=== PATIENT | male | born 1960 | race African-American/Black ===

== ENCOUNTER 2016-10-11 23:21 | Emergency (ER) | payer BC ==
[2016-10-11 23:40] VITALS: BP 151/77
[2016-10-12] MEDS ORDERED: NYSTATIN CREAM 15 GM TP ONE (00:12)
[2016-10-12] MEDS ORDERED: FLUCONAZOLE 100 MG TABLET PO ONE (00:15)
--- NOTE | 2016-10-12 00:21 | ER Document Report ---
ED General - General Chief Complaint: Pain With Urination Stated Complaint: PAINFUL URINATION Mode of Arrival: Ambulatory Information source: Patient TRAVEL OUTSIDE OF THE [place] IN LAST 30 DAYS: No - HPI Notes: Patient is a pleasant 56-year-old black male diabetic presents emergent department report that his sugars been running slightly elevated recently and he presents with report of dysuria and pain and redness and swelling along the glans of the penis and some difficulty manipulating his foreskin. Patient denies any testicular pain. He reports no new sexual exposures. He denies any back pain or abdominal pain or incomplete voiding for fever or chills. No nausea or vomiting. - Related Data Allergies/Adverse Reactions: No Known Allergies Allergy (Verified 07/15/13 19:03) Past Medical History - General Information source: Patient - Social History Smoking Status: Never Smoker Frequency of alcohol use: None Drug Abuse: None Lives with: Family Family History: Reviewed & Not Pertinent Patient has suicidal ideation: No Patient has homicidal ideation: No - Past Medical History Cardiac Medical History: Reports: Hx Hypercholesterolemia Endocrine Medical History: Reports: Hx Diabetes Mellitus Type 1, Hx Diabetes Mellitus Type 2 Renal/ Medical History: Denies: Hx Peritoneal Dialysis - Immunizations Hx Diphtheria, Pertussis, Tetanus Vaccination: No Review of Systems - Review of Systems Notes: REVIEW OF SYSTEMS: CONSTITUTIONAL : Denies fever, chills, or sweats. Denies recent illness. EENT: Denies eye, ear, throat, or mouth pain or symptoms. Denies nasal or sinus congestion or discharge. Denies throat, tongue, or mouth swelling or difficulty swallowing. CARDIOVASCULAR: Denies chest pain. Denies palpitations or racing or irregular heart beat. Denies ankle edema. RESPIRATORY: Denies cough, cold, or chest congestion. Denies shortness of breath, difficulty breathing, or wheezing. GASTROINTESTINAL: Denies abdominal pain or distention. Denies nausea, vomiting , or diarrhea. Denies blood in vomitus, stools, or per rectum. Denies black, tarry stools. Denies constipation. GENITOURINARY: Denies blood in urine, or discharge. Reports some dysuria and frequency. No incomplete voiding. MUSCULOSKELETAL: Denies back or neck pain or stiffness. Denies joint pain or swelling. SKIN: Denies rash, lesions or sores. HEMATOLOGIC : Denies easy bruising or bleeding. LYMPHATIC: Denies swollen, enlarged glands. NEUROLOGICAL: Denies confusion or altered mental status. Denies passing out or loss of consciousness. Denies dizziness or lightheadedness. Denies headache. Denies weakness or paralysis or loss of use of either side. Denies problems with gait or speech. Denies sensory loss, numbness, or tingling. Denies seizures. PSYCHIATRIC: Denies anxiety or stress. Denies depression, suicidal ideation, or homicidal ideation. ALL OTHER SYSTEMS REVIEWED AND NEGATIVE. Dictation was performed using [employer] voice recognition software Physical Exam - Vital signs Vitals: Temp Pulse Resp BP Pulse Ox 98.1 F 66 16 151/77 H 100 10/11/16 23:36 10/11/16 23:36 10/11/16 23:36 10/11/16 23:36 10/11/16 23:36 - Notes Notes: PHYSICAL EXAMINATION: GENERAL: Well-appearing, well-nourished and in no acute distress. HEAD: Atraumatic, normocephalic. EYES: Pupils equal round and reactive to light, extraocular movements intact, sclera anicteric, conjunctiva are normal. ENT: Nares patent, oropharynx clear without exudates. Moist mucous membranes. NECK: Normal range of motion, supple without lymphadenopathy LUNGS: Breath sounds clear to auscultation bilaterally and equal. No wheezes rales or rhonchi. HEART: Regular rate and rhythm without murmurs ABDOMEN: Soft, nontender, nondistended abdomen. No guarding, no rebound. No masses appreciated. Musculoskeletal: Normal range of motion, no pitting or edema. No cyanosis. NEUROLOGICAL: Cranial nerves grossly intact. Normal speech, normal gait. Normal sensory, motor exams PSYCH: Normal mood, normal affect. SKIN: Warm, Dry, normal turgor, no rashes or lesions noted. Genitourinary exam patient has erythema to the glans with some erythema to the distal foreskin. He is uncircumcised. There is some areas of splitting along the foreskin along a atrophied area with evidence of phimosis. The foreskin can be retracted with minimal whitish discharge in the foreskin can be replaced and location with some pain. No testicular pain. No obvious hernia. No evidence for Sandi's. Course - Re-evaluation Re-evalutation: 10/12/16 00:24 Patient was given Diflucan and was given nystatin cream. 10/12/16 02:52 Patient was given Cipro by mouth and a urine culture was taken. We will double the patient's Glucophage, as he does not have good sugar control. 10/12/16 02:53 - Vital Signs Vital signs: Temp Pulse Resp BP Pulse Ox 98.1 F 66 16 151/77 H 100 10/11/16 23:36 10/11/16 23:36 10/11/16 23:36 10/11/16 23:36 10/11/16 23:36 - Laboratory Laboratory results interpreted by me: 10/12/16 10/12/16 00:22 00:30 POC Glucose 262 H Urine Glucose (UA) >=500 H Urine Blood SMALL H Ur Leukocyte Esterase LARGE H Discharge - Discharge Clinical Impression: Phimosis, Tinea cruris Urinary tract infection Qualifiers: Urinary tract infection type: acute cystitis Hematuria presence: without hematuria Qualified Code(s): N30.00 - Acute cystitis without hematuria Condition: Stable Disposition: HOME, SELF-CARE Instructions: Urinary Tract Infection ([facility]) Additional Instructions: Place the antifungal cream upon the penis 3 times a day. Clean around the foreskin regularly. You need to follow-up with a urologist to inquire about a possible circumcision. Watch her blood sugars closely. Increase her Glucophage from once a day to twice per day. Prescriptions: Butenafine HCl [Lotrimin Ultra 1% Cream] 1 applic TP TID #1 tube Fluconazole [Diflucan 100 Mg Tablet] 100 mg PO DAILY #10 tablet Sulfamethoxazole/Trimethoprim [Bactrim Ds Tablet] 1 each PO BID #14 tablet Forms: Return to Work Referrals: SINA PETE MD [Primary Care Provider] - Follow up as needed MARY MCKEON MD [NO LOCAL MD] - Follow up as needed
[2016-10-12 00:43] LABS: APPEARANCE,URINE SLIGHTLY-CLOUDY; BILIRUBIN,URINE NEGATIVE (NEGATIVE); GLUCOSE, URINE >=500 mg/dL (NEGATIVE); KETONES,URINE NEGATIVE (NEGATIVE); LEUKOCYTE ESTERASE,URINE LARGE (NEGATIVE); NITRITE,URINE NEGATIVE (NEGATIVE); PROTEIN,URINE NEGATIVE (NEGATIVE); URINE SPECIFIC GRAVITY 1.028; UROBILINOGEN,URINE NEGATIVE mg/dL (<2.0)
[2016-10-12] MEDS ORDERED: CIPROFLOXACIN HCL 500 MG TABLET PO ONE (02:47)
[2016-10-12] MEDS ORDERED: SULFAMETHOXAZOLE/TRIMETHOPRIM 800-160 MG TABLET PO ONE (02:57)
== END 2016-10-12 03:20 | disposition home or self-care (01) ==
LOC: ER 23:21
DX: N30.00 Acute cystitis without hematuria (principal); N47.1 Phimosis; B35.6 Tinea cruris; E11.65 Type 2 diabetes mellitus with hyperglycemia; Z79.84 Long term (current) use of oral hypoglycemic drugs
CPT/HCPCS: 99283; 87086; 82962; 81001; J3490

== ENCOUNTER 2016-11-07 14:46 | Emergency (ER) | payer BC ==
[2016-11-07 14:53] VITALS: BP 111/65
[2016-11-07] MEDS ORDERED: NORMAL SALINE 1000 ML 1,000 ML IV ONE (17:41)
--- NOTE | 2016-11-07 17:43 | ER Document Report ---
ED Blood Sugar Problem - General Chief Complaint: High Blood Sugar Stated Complaint: HIGH BLOOD SUGAR Time Seen by Provider: 11/07/16 17:32 Mode of Arrival: Ambulatory Information source: Patient Notes: This is a 56-year-old male with a history of diabetes who is on metformin who presents for high blood sugar. He states that he has been compliant with his medications. For the past few days he states that his blood sugar has been above 300. At home today it was 450. He states he feels generally weak but denies any pain. No fevers or chills. No abdominal pain. No nausea or vomiting. No dysuria. No cough or congestion. No chest pain. Patient states he does have an appointment with his primary care physician Dr. Wilson tomorrow at 0900. TRAVEL OUTSIDE OF THE [place] IN LAST 30 DAYS: No - Related Data Allergies/Adverse Reactions: No Known Allergies Allergy (Verified 07/15/13 19:03) Past Medical History - General Information source: Patient - Social History Smoking Status: Unknown if Ever Smoked Family History: Reviewed & Not Pertinent Patient has suicidal ideation: No Patient has homicidal ideation: No - Past Medical History Cardiac Medical History: Reports: Hx Hypercholesterolemia Endocrine Medical History: Reports: Hx Diabetes Mellitus Type 1, Hx Diabetes Mellitus Type 2 Renal/ Medical History: Denies: Hx Peritoneal Dialysis - Immunizations Hx Diphtheria, Pertussis, Tetanus Vaccination: No Review of Systems - Review of Systems Constitutional: denies: Chills, Fever EENT: No symptoms reported Cardiovascular: No symptoms reported. denies: Chest pain Respiratory: No symptoms reported. denies: Cough, Short of breath Gastrointestinal: No symptoms reported Genitourinary: No symptoms reported Musculoskeletal: No symptoms reported Skin: No symptoms reported Hematologic/Lymphatic: No symptoms reported Neurological/Psychological: No symptoms reported Physical Exam - Vital signs Vitals: Temp Pulse Resp BP Pulse Ox 98.2 F 104 H 22 H 111/65 98 11/07/16 14:49 11/07/16 14:49 11/07/16 14:49 11/07/16 14:49 11/07/16 14:49 - General General appearance: Appears well, Alert In distress: None Notes: Pleasant and conversant and in no acute distress - HEENT Head: Normocephalic, Atraumatic Mucous membranes: Moist - Respiratory Respiratory status: No respiratory distress Breath sounds: Normal. No: Rales, Rhonchi, Wheezing - Cardiovascular Rhythm: Regular Heart sounds: Normal auscultation, S1 appreciated, S2 appreciated Murmur: No - Abdominal Inspection: Normal Distension: No distension Bowel sounds: Normal Tenderness: Nontender - Extremities General upper extremity: Normal inspection General lower extremity: Normal inspection - Neurological Neuro grossly intact: Yes Cognition: Normal Orientation: AAOx4 - Psychological Associated symptoms: Normal affect, Normal mood - Skin Skin Temperature: Warm Skin Moisture: Dry Skin Color: Normal Course - Re-evaluation Re-evalutation: 11/07/16 20:43 Patient has remained comfortable and hemodynamically stable in the ER. He did receive a liter of IV normal saline. His Accu-Chek after fluids was below 300 at 292. There is no evidence of DKA. There is no evidence of infection at this time, he has a scheduled follow-up appointment with his physician Dr. Wilson in the morning. He is appropriate for discharge home and follow-up tomorrow. He is Comfortable with this plan. - Vital Signs Vital signs: Temp Pulse Resp BP Pulse Ox 98.2 F 104 H 22 H 111/65 98 11/07/16 14:49 11/07/16 14:49 11/07/16 14:49 11/07/16 14:49 11/07/16 14:49 - Laboratory Result Diagrams: 11/07/16 18:16 11/07/16 18:16 Laboratory results interpreted by me: 11/07/16 11/07/16 11/07/16 18:16 18:16 20:15 RBC 5.87 H RDW 14.2 H Sodium 136.4 L BUN 22 H Glucose 369 H Urine Glucose (UA) >=500 H Urine Ketones TRACE H Urine Blood SMALL H Discharge - Discharge Clinical Impression: Hyperglycemia due to type 2 diabetes mellitus Qualifiers: Diabetes mellitus watermelon inspector insulin use: without watermelon inspector use Qualified Code(s ): E11.65 - Type 2 diabetes mellitus with hyperglycemia Condition: Stable Disposition: HOME, SELF-CARE Additional Instructions: DIABETES: You have an abnormally high blood sugar, secondary to your diabetes. Uncontrolled high blood sugar leads to early heart disease, strokes, nerve damage, eye damage, and kidney damage. All diabetics should follow a diet designed to control the blood sugar. Overweight diabetics should exercise regularly and lose weight. If this is not sufficient to control the blood sugar, pills or insulin shots are necessary. Younger people who develop diabetes almost always require insulin daily. Home testing of blood sugars or urine sugar is required. Diabetic teaching is available to help you figure insulin doses and monitor the blood sugar. Call the physician if there is faintness, excess sleepiness, or very rapid breathing. If hypoglycemia (LOW blood sugar) develops, symptoms are shakiness, weakness, sweating, and confusion. In this case, you should eat or drink something with sugar at once. Drink plenty of fluids and follow your diabetic diet. FOLLOW-UP CARE: If you have been referred to a physician for follow-up care, call the physician s office for an appointment as you were instructed or within the next two days. If you experience worsening or a significant change in your symptoms, notify the physician immediately or return to the Emergency Department at any time for re-evaluation. Follow up as scheduled with Dr. Wilson tomorrow morning to discuss further medication adjustment. Forms: Return to Work
[2016-11-07 18:32] LABS: ABSOLUTE EOSINOPHILS # (AUTO) 0.1 10^3/uL (0.0-0.6); ABSOLUTE LYMPHOCYTES (AUTO) 2.3 10^3/uL (0.5-4.7); ABSOLUTE MONOCYTES (AUTO) 0.4 10^3/uL (0.1-1.4); ABSOLUTE NEUT (AUTO) 3.8 10^3/uL (1.7-8.2); BASOPHILS % (AUTO) 0.7 % (0-2); EOSINOPHILS % (AUTO) 2.1 % (0-6); HEMATOCRIT 49.3 % (37.9-51.0); HEMOGLOBIN 15.9 g/dL (13.5-17.0); HGB HCT DIFFERENCE -1.6; LYMPHOCYTES % (AUTO) 33.9 % (13-45); MEAN CORPUSCULAR HEMOGLOBIN 27.1 pg (27.0-33.4); MEAN CORPUSCULAR HGB CONC 32.2 g/dL (32.0-36.0); MEAN CORPUSCULAR VOLUME 84 fl (80-97); MONOCYTES % (AUTO) 6.6 % (3-13); RED BLOOD COUNT 5.87 10^6/uL (4.35-5.55); RED CELL DISTRIBUTION WIDTH 14.2 % (11.5-14.0); SEGMENTED NEUTROPHILS % (AUTO) 56.7 % (42-78); WHITE BLOOD COUNT 6.7 10^3/uL (4.0-10.5)
[2016-11-07 18:42] LABS: ALANINE AMINOTRANSFERASE 39 U/L (21-72); ALBUMIN 4.5 g/dL (3.5-5.0); ALKALINE PHOSPHATASE 106 U/L (38-126); ANION GAP 14 (5-19); ASPARTATE AMINO TRANSFERASE 23 U/L (17-59); BILIRUBIN,DIRECT 0.3 mg/dL (0.0-0.4); BLOOD UREA NITROGEN 22 mg/dL (7-20); CALCIUM 10.2 mg/dL (8.4-10.2); CARBON DIOXIDE 22 mmol/L (22-30); CHLORIDE 100 mmol/L (98-107); CREATININE RESULT 1.07 mg/dL (0.52-1.25); GLUCOSE 369 mg/dL (75-110); POTASSIUM 4.9 mmol/L (3.6-5.0); SODIUM 136.4 mmol/L (137-145); TOTAL PROTEIN 7.8 g/dL (6.3-8.2)
[2016-11-07 20:34] LABS: APPEARANCE,URINE CLEAR; BILIRUBIN,URINE NEGATIVE (NEGATIVE); GLUCOSE, URINE >=500 mg/dL (NEGATIVE); KETONES,URINE TRACE mg/dL (NEGATIVE); LEUKOCYTE ESTERASE,URINE NEGATIVE (NEGATIVE); NITRITE,URINE NEGATIVE (NEGATIVE); PROTEIN,URINE NEGATIVE (NEGATIVE); URINE SPECIFIC GRAVITY 1.038; UROBILINOGEN,URINE NEGATIVE mg/dL (<2.0)
== END 2016-11-07 21:10 | disposition home or self-care (01) ==
LOC: ER 14:46
DX: E11.65 Type 2 diabetes mellitus with hyperglycemia (principal); E78.00 Pure hypercholesterolemia, unspecified
CPT/HCPCS: 99284; 96360; 36415; 82962; 85025; 80053; 81001; J7030

== ENCOUNTER 2017-03-11 21:37 | Emergency (ER) | payer BC ==
[2017-03-11 21:53] VITALS: BP 142/78
[2017-03-11 22:32] LABS: ABSOLUTE BASOPHILS # (AUTO) 0.1 10^3/uL (0.0-0.2); ABSOLUTE EOSINOPHILS # (AUTO) 1.1 10^3/uL (0.0-0.6); ABSOLUTE LYMPHOCYTES (AUTO) 2.3 10^3/uL (0.5-4.7); ABSOLUTE MONOCYTES (AUTO) 0.7 10^3/uL (0.1-1.4); ABSOLUTE NEUT (AUTO) 3.6 10^3/uL (1.7-8.2); BASOPHILS % (AUTO) 0.7 % (0-2); EOSINOPHILS % (AUTO) 14.5 % (0-6); HEMATOCRIT 37.1 % (37.9-51.0); HEMOGLOBIN 12.3 g/dL (13.5-17.0); HGB HCT DIFFERENCE -0.2; LYMPHOCYTES % (AUTO) 29.7 % (13-45); MEAN CORPUSCULAR HEMOGLOBIN 27.5 pg (27.0-33.4); MEAN CORPUSCULAR HGB CONC 33.2 g/dL (32.0-36.0); MEAN CORPUSCULAR VOLUME 83 fl (80-97); MONOCYTES % (AUTO) 9.5 % (3-13); RED BLOOD COUNT 4.49 10^6/uL (4.35-5.55); RED CELL DISTRIBUTION WIDTH 15.7 % (11.5-14.0); SEGMENTED NEUTROPHILS % (AUTO) 45.6 % (42-78); WHITE BLOOD COUNT 7.8 10^3/uL (4.0-10.5)
--- NOTE | 2017-03-11 22:35 | ER Document Report ---
ED GI/ - General Chief Complaint: Possible Kidney Stone Stated Complaint: LEFT SIDE PAIN Time Seen by Provider: 03/11/17 22:35 Mode of Arrival: Ambulatory Information source: Patient Notes: 56 yo DM2, hx kidney stones (4 months ago lithotrpsy) male c/o dull or sharp intermittent, left flank pain since 2400 last night, doesn't stay long, sometimes radiates to LLQ. While he was driving tonight, got a really bad left flank pain that lasted 2-3 minutes, put his hand to the area and decided to come to ER. Wanted to know if it is a stone or not. No nausea, vomiting. Diarrhea earlier today a few times. No hx. crohns, colitis, or diverticulitis. No fever. No pain at this time, resolved 5 minutes ago. TRAVEL OUTSIDE OF THE [place] IN LAST 30 DAYS: No - Related Data Allergies/Adverse Reactions: No Known Allergies Allergy (Verified 03/11/17 21:49) Past Medical History - General Information source: Patient - Social History Smoking Status: Never Smoker Frequency of alcohol use: None Drug Abuse: None Occupation: cook supposed to work tomorrow Lives with: Family Family History: Reviewed & Not Pertinent Patient has suicidal ideation: No Patient has homicidal ideation: No - Past Medical History Cardiac Medical History: Reports: Hx Hypercholesterolemia Endocrine Medical History: Reports: Hx Diabetes Mellitus Type 2 Renal/ Medical History: Denies: Hx Peritoneal Dialysis Surgical Hx: Negative - Immunizations Hx Diphtheria, Pertussis, Tetanus Vaccination: No Review of Systems - Review of Systems Constitutional: No symptoms reported EENT: No symptoms reported Cardiovascular: No symptoms reported Respiratory: No symptoms reported Gastrointestinal: No symptoms reported Genitourinary: No symptoms reported Male Genitourinary: No symptoms reported Musculoskeletal: See HPI Skin: No symptoms reported Hematologic/Lymphatic: No symptoms reported Neurological/Psychological: No symptoms reported Physical Exam - Vital signs Vitals: Temp Pulse Resp BP Pulse Ox 98.6 F 60 20 142/78 H 98 03/11/17 21:51 03/11/17 21:51 03/11/17 21:51 03/11/17 21:51 03/11/17 21:51 Interpretation: Normal - General General appearance: Appears well, Alert In distress: None - HEENT Head: Normocephalic, Atraumatic Eyes: Normal Conjunctiva: Normal Pupils: PERRL Mucous membranes: Normal Neck: Supple - Respiratory Respiratory status: No respiratory distress Chest status: Nontender Breath sounds: Normal Chest palpation: Normal - Cardiovascular Rhythm: Regular Heart sounds: Normal auscultation Murmur: No - Abdominal Inspection: Normal Distension: No distension Bowel sounds: Normal Tenderness: Nontender Organomegaly: No organomegaly - Back Back: Normal, Tender - lower lateral lumbar muscle. No: CVA tenderness, Vertebra tenderness - Extremities General upper extremity: Normal inspection, Nontender, Normal color, Normal ROM , Normal temperature General lower extremity: Normal inspection, Nontender, Normal color, Normal ROM , Normal temperature, Normal weight bearing. No: Lisandro's sign - Neurological Neuro grossly intact: Yes Cognition: Normal Orientation: AAOx4 Gilson Coma Scale Eye Opening: Spontaneous Gilson Coma Scale Verbal: Oriented Gilson Coma Scale Motor: Obeys Commands Gilson Coma Scale Total: 15 Speech: Normal Motor strength normal: LUE, RUE, LLE, RLE Sensory: Normal - Psychological Associated symptoms: Normal affect, Normal mood - Skin Skin Temperature: Warm Skin Moisture: Dry Skin Color: Normal Skin irregularity: negative: Rash Course - Re-evaluation Re-evalutation: 03/11/17 23:48 CT scan shows a 3 mm right kidney stone, no hydronephrosis. Aorta OK. No left renal stone and no hydronephrosis. It also shows an incidental 6 mm nodule in the right base of his lung which she can see Dr. Mustafa for follow-up in 3-4 months. Suspect that this pain is muscular. 03/11/17 23:49 - Vital Signs Vital signs: Temp Pulse Resp BP Pulse Ox 98.6 F 85 18 142/78 H 99 03/11/17 21:51 03/12/17 00:15 03/12/17 00:15 03/11/17 21:51 03/12/17 00:15 - Laboratory Result Diagrams: 03/11/17 22:05 03/11/17 22:05 Laboratory results interpreted by me: 03/11/17 03/11/17 03/11/17 21:55 22:05 22:05 Hgb 12.3 L Hct 37.1 L RDW 15.7 H Eosinophils % 14.5 H Absolute Eosinophils 1.1 H Lipase 302.2 H Urine Urobilinogen 4.0 H Discharge - Discharge Clinical Impression: Left flank pain Condition: Good Disposition: HOME, SELF-CARE Instructions: Acetaminophen, Flank Pain ([facility]) Additional Instructions: to er any concerns see dr mustafa for follow up on the new 6mm right lung base nodule right kidney stone which is not causing this pain Please complete the patient satisfaction survey if you get one, and return it.. If you do not receive a survey, then you can go to the [facility] website, [email or web address] and place your comments about your very good care. Thank you very much. It was a pleasure being your medical provider today. Forms: Return to Work Referrals: SINA MUSTAFA MD [Primary Care Provider] - Follow up as needed
[2017-03-11 22:43] LABS: ALANINE AMINOTRANSFERASE 45 U/L (21-72); ALBUMIN 4.1 g/dL (3.5-5.0); ALKALINE PHOSPHATASE 50 U/L (38-126); ANION GAP 9 (5-19); ASPARTATE AMINO TRANSFERASE 24 U/L (17-59); BILIRUBIN,DIRECT 0.4 mg/dL (0.0-0.4); BILIRUBIN,TOTAL 0.6 mg/dL (0.2-1.3); BLOOD UREA NITROGEN 19 mg/dL (7-20); CALCIUM 9.9 mg/dL (8.4-10.2); CARBON DIOXIDE 27 mmol/L (22-30); CHLORIDE 107 mmol/L (98-107); CREATININE RESULT 1.16 mg/dL (0.52-1.25); GLUCOSE 108 mg/dL (75-110); LIPASE 302.2 U/L (23-300); SODIUM 142.6 mmol/L (137-145); TOTAL PROTEIN 7.2 g/dL (6.3-8.2)
[2017-03-11 22:49] LABS: APPEARANCE,URINE CLEAR; BILIRUBIN,URINE NEGATIVE (NEGATIVE); GLUCOSE, URINE NEGATIVE (NEGATIVE); KETONES,URINE NEGATIVE (NEGATIVE); LEUKOCYTE ESTERASE,URINE NEGATIVE (NEGATIVE); NITRITE,URINE NEGATIVE (NEGATIVE); PROTEIN,URINE NEGATIVE (NEGATIVE); URINE SPECIFIC GRAVITY 1.025
[2017-03-11 23:05] LABS: WBC,URINE RARE /HPF
--- NOTE | 2017-03-11 23:43 | RADIOLOGY REPORT (SQ) ---
EXAM DESCRIPTION: CT LTD RENAL STONE PROTOCOL ON COMPLETED DATE/TIME: 03/11/2017 11:26 pm REASON FOR STUDY: left flank pain COMPARISON: 08/15/2013 TECHNIQUE: CT scan of the abdomen and pelvis performed without intravenous or oral contrast. Images reviewed with lung, soft tissue, and bone windows. Reconstructed coronal and sagittal MPR images revi ewed. All images stored on PACS. All CT scanners at this facility use dose modulation, iterative reconstruction, and/or weight based d osing when appropriate to reduce radiation dose to as low as reasonably achievable (ALARA). [facility]: Dose Right [facility]: CareDose [facility]: Dose Right [facility]: Teradose 4D [facility]: Smart [employer] RADIATION DOSE: Up-to-date CT equipment and radiation dose reduction techniques were employed. CTDIv ol: 13.6 mGy. DLP: 818 mGy-cm.mGy. LIMITATIONS: None. FINDINGS: LOWER CHEST: New 6 mm nodule in the posterior segment of the right lower lobe, seen best o n image number 12 series 4. No consolidation or effusion. NON-CONTRASTED LIVER, SPLEEN, ADRENALS: Evaluation limited by lack of IV contrast. No identified sign ificant masses. PANCREAS: No masses. No peripancreatic inflammatory changes. GALLBLADDER: No identified stones by CT criteria. No inflammatory changes to suggest cholecystitis. RIGHT KIDNEY AND URETER: No suspicious masses. Assessment limited by lack of IV contrast. 3 mm calc ified stone in the mid body parenchyma. No hydronephrosis or hydroureter. LEFT KIDNEY AND URETER: No suspicious masses. Assessment limited by lack of IV contrast. No signifi cant calcifications. No hydronephrosis or hydroureter. AORTA AND RETROPERITONEUM: No aneurysm. No retroperitoneal masses or adenopathy. BOWEL AND PERITONEAL CAVITY: No obvious masses or inflammatory changes. No free fluid. APPENDIX: Normal. PELVIS, BLADDER, AND ABDOMINAL WALL:No abnormal masses. No free fluid. Bladder normal. BONES: No acute findings. OTHER: No other significant finding. IMPRESSION: NO ACUTE PROCESS IN THE ABDOMEN OR PELVIS. New 6 mm nodule in the posterior segment of the right lower lobe, short interval follow-up needed in 3-4 months. COMMENT: Quality ID # [id number]: Final reports with documentation of one or more dose reduction techniques (e.g., Automated exposure control, adjustment of the mA and/or kV according to patient size, use of iterative reconstruction technique) TECHNICAL DOCUMENTATION: JOB ID: [id number] [employer]- All Rights Reserved
== END 2017-03-12 00:15 | disposition home or self-care (01) ==
LOC: ER 21:37
DX: R10.9 Unspecified abdominal pain (principal); E78.00 Pure hypercholesterolemia, unspecified; E11.9 Type 2 diabetes mellitus without complications
CPT/HCPCS: 36415; 76380; 80053; 81001; 83690; 85025; 99284

== ENCOUNTER → 2017-04-04 | Outpatient (CLI) | payer BC ==
--- NOTE | 2017-04-04 11:38 | RADIOLOGY REPORT (SQ) ---
EXAM DESCRIPTION: CT LTD RENAL STONE PROTOCOL ON COMPLETED DATE/TIME: 04/04/2017 11:24 am REASON FOR STUDY: CALCULUS OF KIDNEY N20.0 CALCULUS OF KIDNEY R10.9 UNSPECIFIED ABDOMINAL PAIN COMPARISON: CT abdomen pelvis 04/12/2009, 08/15/2013, 03/11/2017 TECHNIQUE: CT scan of the abdomen and pelvis performed without intravenous or oral contrast. Images reviewed with lung, soft tissue, and bone windows. Reconstructed coronal and sagittal MPR images revi ewed. All images stored on PACS. All CT scanners at this facility use dose modulation, iterative reconstruction, and/or weight based d osing when appropriate to reduce radiation dose to as low as reasonably achievable (ALARA). [facility]: Dose Right [facility]: CareDose [facility]: Dose Right [facility]: Teradose 4D [facility]: Smart [employer] RADIATION DOSE: Up-to-date CT equipment and radiation dose reduction techniques were employed. CTDIv ol: 13.2 mGy. DLP: 762 mGy-cm.mGy. LIMITATIONS: None. FINDINGS: LOWER CHEST: No significant findings. No nodules or infiltrates. NON-CONTRASTED LIVER, SPLEEN, ADRENALS: Evaluation limited by lack of IV contrast. No identified sign ificant masses. PANCREAS: No masses. No peripancreatic inflammatory changes. GALLBLADDER: No identified stones by CT criteria. No inflammatory changes to suggest cholecystitis. RIGHT KIDNEY AND URETER: No suspicious masses. Assessment limited by lack of IV contrast. 3 mm intr arenal nonobstructive calculus right mid-pole kidney. No ureteral stones. No hydronephrosis or hyd roureter. LEFT KIDNEY AND URETER: No suspicious masses. Assessment limited by lack of IV contrast. No signifi cant calcifications. No hydronephrosis or hydroureter. AORTA AND RETROPERITONEUM: No aneurysm. No retroperitoneal masses or adenopathy. BOWEL AND PERITONEAL CAVITY: No obvious masses or inflammatory changes. No free fluid. APPENDIX: Normal. PELVIS, BLADDER, AND ABDOMINAL WALL:No abnormal masses. No free fluid. Bladder normal. Small fatty r ight inguinal hernia on coronal image 26. BONES: No significant findings. OTHER: No other significant finding. IMPRESSION: 3 mm right midpole intrarenal nonobstructive stone. No right hydronephrosis or hydroure ter. Small fatty right inguinal hernia coronal image 26 COMMENT: Quality ID # [id number]: Final reports with documentation of one or more dose reduction techniques (e.g., Automated exposure control, adjustment of the mA and/or kV according to patient size, use of iterative reconstruction technique) TECHNICAL DOCUMENTATION: JOB ID: [id number] [employer]- All Rights Reserved
== END ==
LOC: RAD 11:00
PROVIDERS: ATTEND Family Medicine
DX: N20.0 Calculus of kidney (principal); R10.9 Unspecified abdominal pain
CPT/HCPCS: 76380

== ENCOUNTER 2017-09-02 21:26 | Emergency (ER) | payer BC ==
[2017-09-02 21:47] VITALS: BP 155/83
[2017-09-02] MEDS ORDERED: PREDNISONE 20 MG TABLET PO ONE (22:45)
--- NOTE | 2017-09-02 22:49 | ER Document Report ---
ED Skin Rash/Insect Bite/Abscs - General Chief Complaint: Insect Bite Stated Complaint: LEFT ARM PAIN Time Seen by Provider: 09/02/17 21:53 Mode of Arrival: Ambulatory Information source: Patient Notes: 57-year-old male presents to ED for complaint of pain and swelling to his left arm from an insect bite and itching. The arm is mildly swollen and red from the insect bite. He is denies any pain to the area. Patient is in no acute distress. TRAVEL OUTSIDE OF THE [place] IN LAST 30 DAYS: No - HPI Patient complains to provider of: Insect bite Onset: This morning Onset/Duration: Gradual Quality of pain: No pain Severity: None Pain Level: Denies Skin Character: Other - Insect bite to the left arm with swelling and itching Quality of rash: Itchy Exacerbated by: Denies Relieved by: Denies Similar symptoms previously: Yes Recently seen / treated by doctor: No - Related Data Allergies/Adverse Reactions: No Known Allergies Allergy (Verified 09/02/17 21:38) Past Medical History - General Information source: Patient - Social History Smoking Status: Never Smoker Cigarette use (# per day): No Chew tobacco use (# tins/day): No Smoking Education Provided: No Frequency of alcohol use: None Drug Abuse: None Occupation: Cook Lives with: Family Family History: Arthritis, DM, Hyperlipidemia, Hypertension. denies: CAD, COPD , CVA, Malignancy, Thyroid Disfunction Patient has suicidal ideation: No Patient has homicidal ideation: No - Past Medical History Cardiac Medical History: Reports: Hx Hypercholesterolemia, Hx Hypertension Pulmonary Medical History: Reports: None EENT Medical History: Reports: None Endocrine Medical History: Reports: Hx Diabetes Mellitus Type 2 Renal/ Medical History: Reports: Hx Kidney Stones Malignancy Medical History: Reports None GI Medical History: Reports: None Musculoskeltal Medical History: Reports None Skin Medical History: Reports None Psychiatric Medical History: Reports: None Traumatic Medical History: Reports: None Infectious Medical History: Reports: None Past Surgical History: Reports: Other - Lithotripsy for kidney stones - Immunizations Hx Diphtheria, Pertussis, Tetanus Vaccination: No Review of Systems - Review of Systems Constitutional: No symptoms reported EENT: No symptoms reported Cardiovascular: No symptoms reported Respiratory: No symptoms reported Gastrointestinal: No symptoms reported Genitourinary: No symptoms reported Male Genitourinary: No symptoms reported Musculoskeletal: No symptoms reported Skin: Other - Sick bite to left arm with redness and swelling and itching Hematologic/Lymphatic: No symptoms reported Neurological/Psychological: No symptoms reported -: Yes All other systems reviewed and negative Physical Exam - Vital signs Vitals: Temp Pulse Resp BP Pulse Ox 98.5 F 69 17 155/83 H 99 09/02/17 21:44 09/02/17 21:44 09/02/17 21:44 09/02/17 21:44 09/02/17 21:44 Interpretation: Normal - General General appearance: Appears well, Alert - HEENT Head: Normocephalic, Atraumatic Eyes: Normal Pupils: PERRL - Respiratory Respiratory status: No respiratory distress Chest status: Nontender Breath sounds: Normal Chest palpation: Normal - Cardiovascular Rhythm: Regular Heart sounds: Normal auscultation Murmur: No - Abdominal Inspection: Normal Distension: No distension Bowel sounds: Normal Tenderness: Nontender Organomegaly: No organomegaly - Back Back: Normal, Nontender - Extremities General upper extremity: Normal inspection, Nontender, Normal color, Normal ROM , Normal temperature General lower extremity: Normal inspection, Nontender, Normal color, Normal ROM , Normal temperature, Normal weight bearing. No: Lisandro's sign - Neurological Neuro grossly intact: Yes Cognition: Normal Orientation: AAOx4 [place] Coma Scale Eye Opening: Spontaneous [place] Coma Scale Verbal: Oriented [place] Coma Scale Motor: Obeys Commands [place] Coma Scale Total: 15 Speech: Normal Motor strength normal: LUE, RUE, LLE, RLE Sensory: Normal - Psychological Associated symptoms: Normal affect, Normal mood - Skin Skin Temperature: Warm Skin Moisture: Dry Skin Color: Normal Location of irregularity: Extremities - Left forearm Character of irregularity: Erythematous - Itching Irregularity with: Swelling Course - Re-evaluation Re-evalutation: 09/03/17 02:09 Patient was instructed to take Benadryl as soon as he got home and was given a small dose of prednisone in the emergency room. Patient was discharged home with a prescription for a small dose of prednisone to help with his itching and swelling to his insect bite to his arm. Patient was instructed to follow-up with primary doctor for any increase in swelling or fever. Patient was also instructed to use ice to the area to help with the swelling. - Vital Signs Vital signs: Temp Pulse Resp BP Pulse Ox 98.5 F 69 17 155/83 H 99 09/02/17 21:44 09/02/17 21:44 09/02/17 21:44 09/02/17 21:44 09/02/17 21:44 Discharge - Discharge Clinical Impression: Insect bite Qualifiers: Encounter type: initial encounter Qualified Code(s): W57.XXXA - Bitten or stung by nonvenomous insect and other nonvenomous arthropods, initial encounter Condition: Stable Disposition: HOME, SELF-CARE Additional Instructions: Insect Bites You have been bitten by an insect. These bites can cause two types of swelling: an initial swelling due to insect saliva or injected poison, and a late reaction due to your body's allergic reaction. This initial local reaction may be uncomfortable but is not dangerous. Often there's an itchy "hive" at the bite location. This is treated with antihistamines, cold compresses, and resting the affected body part. The later reaction often develops about the second day. The entire area becomes very swollen, red, itchy, and tender. This is an allergic reaction. Your body is attacking the leftover insect saliva or venom. This type of allergy is unpleasant, but not dangerous. We treat this swelling with cortisone -type medicine. Sometimes we use antibiotics if we're worried about infection. Antihistamines help with the itch. If you develop a fever, chills, a red streak, or swollen glands in the area of the bite, infection may be starting. Return at once. Diphenhydramine The use of diphenhydramine (Benadryl) has been recommended to control allergic symptoms. The 25 mg strength is available over- the-counter, as well as the elixir. This antihistamine is used for many symptoms. It's useful for itching, watering eyes and nose, allergic swelling, hives, and insect stings. The medication can be repeated four times daily. Age Elixir (12.5 mg/tsp) 25 mg pill 1 yr 1/4 tsp 2-3 yr 1/2 tsp 4-8 yr 1 tsp 9-14 yr 2 tsp one tab adult 1-2 tabs Antihistamines may cause drowsiness, especially with the first dose. Do not operate machinery or drive while under the effects of the medication. Do not combine the medication with alcohol, or with any other medication without talking to your doctor. Ice Packs Apply ice packs frequently against the painful area. Many different schedules are recommended, such as "20 minutes on, 20 minutes off" or "one hour ice, two hours rest." If you need to work, you may need to go longer between ice treatments. You should plan to have the area ice packed AT LEAST one fourth of the time. The ice should be applied over the wrap, tape, or splint, or over a layer of cloth -- not directly against the skin. Some ice bags have a built-in cloth and can be put directly on the skin. FOLLOW-UP CARE: If you have been referred to a physician for follow-up care, call the physician s office for an appointment as you were instructed or within the next two days. If you experience worsening or a significant change in your symptoms, notify the physician immediately or return to the Emergency Department at any time for re-evaluation. Prescriptions: Prednisone [Deltasone 10 mg Tablet] 10 mg PO DAILY #3 tablet Forms: Elevated Blood Pressure, Return to Work Referrals: SINA PETE MD [Primary Care Provider] - Follow up as needed
== END 2017-09-02 22:55 | disposition home or self-care (01) ==
LOC: ER 21:26
DX: S40.862A Insect bite (nonvenomous) of left upper arm, initial encounter (principal); W57.XXXA Bitten or stung by nonvenomous insect and other nonvenomous arthropods, initial encounter; E11.9 Type 2 diabetes mellitus without complications; I10 Essential (primary) hypertension
CPT/HCPCS: 99281; J7512

== ENCOUNTER → 2017-10-12 | Outpatient (CLI) | payer BC ==
--- NOTE | 2017-10-12 08:40 | RADIOLOGY REPORT (SQ) ---
EXAM DESCRIPTION: CT ABD/PELVIS NO ORAL OR IV COMPLETED DATE/TIME: 10/12/2017 7:41 am REASON FOR STUDY: KIDNEY STONES (N20.0) N20.0 CALCULUS OF KIDNEY COMPARISON: 2013. 2016. TECHNIQUE: CT scan of the abdomen and pelvis performed without intravenous or oral contrast. Images reviewed with lung, soft tissue, and bone windows. Reconstructed coronal and sagittal MPR images revi ewed. All images stored on PACS. All CT scanners at this facility use dose modulation, iterative reconstruction, and/or weight based d osing when appropriate to reduce radiation dose to as low as reasonably achievable (ALARA). [facility]: Dose Right [facility]: CareDose [facility]: Dose Right [facility]: Teradose 4D [facility]: [employer] RADIATION DOSE: CT Rad equipment meets quality standard of care and radiation dose reduction techniq ues were employed. CTDIvol: 10.9 mGy. DLP: 633 mGy-cm.mGy. LIMITATIONS: None. FINDINGS: LOWER CHEST: No significant findings. No nodules or infiltrates. NON-CONTRASTED LIVER, SPLEEN, ADRENALS: Evaluation limited by lack of IV contrast. No identified sign ificant masses. PANCREAS: No masses. No peripancreatic inflammatory changes. GALLBLADDER: No identified stones by CT criteria. No inflammatory changes to suggest cholecystitis. RIGHT KIDNEY AND URETER: Punctate nonobstructing midpole calculi. No hydronephrosis or mass. No ure teral stones. LEFT KIDNEY AND URETER: No solid masses. No significant calcification. No hydronephrosis or hydrouret er. AORTA AND RETROPERITONEUM: No aneurysm. No retroperitoneal masses or adenopathy. BOWEL AND PERITONEAL CAVITY: No obvious masses or inflammatory changes. No free fluid. APPENDIX: Normal. PELVIS, BLADDER, AND ABDOMINAL WALL:No abnormal masses. No free fluid. Bladder normal. BONES: No significant findings. OTHER: No other significant finding. IMPRESSION: 1. Nonobstructing right nephrolithiasis. Number of stones is slightly progressive comp ared to most recent study from March 2017. No stones developing in the left kidney. No ureteral s tones. 2. Otherwise unremarkable abdominopelvic CT without contrast. TECHNICAL DOCUMENTATION: JOB ID: [id number] Quality ID # [id number]: Final reports with documentation of one or more dose reduction techniques (e.g., Au tomated exposure control, adjustment of the mA and/or kV according to patient size, use of iterative reconstruction technique) 2010 [employer]- All Rights Reserved Reading location - IP/workstation name: [email or web address]
== END ==
LOC: RAD 07:26
PROVIDERS: ATTEND Family Medicine
DX: N20.0 Calculus of kidney (principal)
CPT/HCPCS: 74176

== ENCOUNTER 2017-11-10 02:46 | Emergency (ER) | payer BC ==
--- NOTE | 2017-11-10 03:27 | ER Document Report ---
HPI - HPI Pain Level: 4 Notes: Patient is a 57-year-old male who presents to the ED complaining of bilateral testicular pain status post injury prior to arrival. Patient states that he had a hole in his breech/boxers and his scrotum and testicles were sticking out of the hole when he sat down and sat directly on them. Patient states that he has had pain since that time. The pain does not radiate. Pain has been relatively constant and worse with pressing on his testicles. He has not noticed any obvious swelling or bruising. Patient states that he is still urinating normally. He has not noticed any urethral discharge. He has no discomfort when he is urinating. Denies any drug allergies. No other concerns or complaints at this time. Denies any headache, fever, neck pain, URI, sore throat, chest pain, palpitations, syncope, cough, shortness of breath, wheeze, dyspnea, abdominal pain, nausea/vomiting/diarrhea, urinary retention, dysuria, hematuria, numbness/tingling, or rash. - ROS Systems Reviewed and Negative: Yes All other systems reviewed and negative Past Medical History - Social History Smoking Status: Never Smoker Family History: Arthritis, DM, Hyperlipidemia, Hypertension. denies: CAD, COPD , CVA, Malignancy, Thyroid Disfunction - Past Medical History Cardiac Medical History: Reports: Hx Hypercholesterolemia, Hx Hypertension Endocrine Medical History: Reports: Hx Diabetes Mellitus Type 1, Hx Diabetes Mellitus Type 2 Renal/ Medical History: Reports: Hx Kidney Stones. Denies: Hx Peritoneal Dialysis Past Surgical History: Reports: Other - Lithotripsy for kidney stones - Immunizations Hx Diphtheria, Pertussis, Tetanus Vaccination: No Vertical Provider Document - CONSTITUTIONAL Agree With Documented VS: Yes Notes: PHYSICAL EXAMINATION: GENERAL: Well-appearing, well-nourished and in no acute distress. LUNGS: Breath sounds clear to auscultation bilaterally and equal. No wheezes rales or rhonchi. HEART: Regular rate and rhythm without murmurs, rubs, gallops. ABDOMEN: Soft, nontender, nondistended abdomen. No guarding, no rebound. No masses appreciated. Normal bowel sounds present. No CVA tenderness bilaterally. : Uncircum. No urethral discharge. No rash, lesions, ulcerations, or obvious swelling/ecchymosis noted. + mild tenderness to the testicles b/l w/o gross deformity. No erythema. No inguinal adenopathy or obvious hernias. No penile tenderness. No transverse lie. Cremasteric reflex intact b/l. Extremities: No cyanosis, clubbing, or edema b/l. Peripheral pulses 2+. Capillary refill less than 3 seconds. NEUROLOGICAL: Normal speech, normal gait. Normal sensory, motor exams PSYCH: Normal mood, normal affect. SKIN: Warm, Dry, normal turgor, no rashes or lesions noted. - INFECTION CONTROL TRAVEL OUTSIDE OF THE [place] IN LAST 30 DAYS: No Course - Re-evaluation Re-evalutation: 11/10/17 03:27 US ordered. 11/10/17 04:29 Patient is an afebrile, well-hydrated, 57-year-old male who presents to the ED with testicular pain bilaterally with noted varicoceles on ultrasound. Vitals are acceptable. PE is otherwise unremarkable. Ultrasound was unremarkable for any acute significant pathology. Patient has no significant tachycardia, tachypnea, or hypoxia. Patient only had pain right after his injury. Patient states that he is otherwise doing well at this time. He has no other concerns or complaints. No other labs or imaging warranted at this time based on H&P. Abdomen is otherwise soft and nontender. Low suspicion/risk for acute appendicitis, bowel obstruction, acute cholecystitis, perforated diverticulitis , incarcerated hernia, pancreatitis, perforated ulcer, peritonitis, sepsis, testicular torsion, nec fasc, or other systemic emergent condition at this time. Patient is aware that his condition can change from initial presentation and he needs to monitor symptoms closely and seek medical attention if any acute changes. Conservative measures otherwise for symptoms. Recheck with PCM in 2-3 days. Consider consult with a urologist. Return to the ED with any worsening/concerning symptoms otherwise as reviewed in discharge. Patient is in agreement. Discharge - Discharge Clinical Impression: Testicular pain, unspecified Condition: Stable Disposition: HOME, SELF-CARE Instructions: Testicular Pain ([facility]) Additional Instructions: Maintain fluid intake Proper hygenic technique Keep the skin clean Tylenol/ibuprofen as needed Monitor symptoms for any acute changes F/u with your PCM in 2-3 days for a recheck Consider consult with a Urologist for ongoing/worsening symptoms. Return to the ED with any worsening symptoms and/or development of fever, headache, chest pain, palpitations, syncope, shortness of breath, trouble breathing, abdominal pain, n/v/d, blood in stool/urine, loss of control of bowel /bladder, urinary retention, or other worsening symptoms that are concerning to you. Referrals: SINA PETE MD [Primary Care Provider] - 11/12/17 BALDOMERO VALLADARES MD [[facility]] - Follow up as needed
--- NOTE | 2017-11-10 04:16 | RADIOLOGY REPORT (SQ) ---
EXAM DESCRIPTION: Complete testicular ultrasound. CLINICAL HISTORY: 57 years Male, pain b/l COMPARISON: None. TECHNIQUE: Real-time sonographic images of the scrotal contents obtained using a linear multi hertz transducer. Color and spectral Doppler imaging was also obtained. FINDINGS: Testicles: The right testicle measures 3.9 x 3.1 x 2.3 cm. The left testicle measures 3.3 x 2.9 x 2.6 cm. No solid intratesticular mass identified. Homogenous echogenicity of the testicles. Epididymis:No abnormalities of the epididymis. Hydrocele: Small bilateral hydroceles with minimal internal debris.. Blood flow:Normal arterial and venous blood flow identified bilaterally. Other: Dilated right peritesticular veins measuring greater than 2 mm. Dilated left peritesticular veins measuring greater than 2 mm. IMPRESSION: 1. Small bilateral hydroceles with internal debris. These may represent simple hydroceles however a component of hemorrhage or infection could produce a similar appearance. 2. Bilateral varicoceles.
[2017-11-10 04:48] VITALS: BP 140/69
== END 2017-11-10 04:48 | disposition home or self-care (01) ==
LOC: ER 02:46
DX: N50.812 Left testicular pain (principal); N50.811 Right testicular pain; X58.XXXA Exposure to other specified factors, initial encounter; I86.1 Scrotal varices; I10 Essential (primary) hypertension; E11.9 Type 2 diabetes mellitus without complications
CPT/HCPCS: 76870; 93976; 99283

== ENCOUNTER 2018-02-03 19:59 | Emergency (ER) | payer BC ==
[2018-02-03 20:15] VITALS: BP 156/74
[2018-02-03] MEDS ORDERED: HYDROCODONE/ACETAMINOPHEN 5-325 MG (6 TAB/ER DISP) PO PRN (21:01)
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
== END 2018-02-03 21:21 | disposition home or self-care (01) ==
LOC: ER 19:59
DX: M25.512 Pain in left shoulder (principal); E11.9 Type 2 diabetes mellitus without complications; I10 Essential (primary) hypertension
CPT/HCPCS: 99283

== ENCOUNTER 2018-04-08 14:27 | Emergency (ER) | payer BC ==
[2018-04-08] MEDS ORDERED: ONDANSETRON HCL INJ/PF 4 MG/2 ML SDV IV ONE (15:29)
[2018-04-08] MEDS ORDERED: NORMAL SALINE 1000 ML 1,000 ML IV ONE (15:29)
[2018-04-08] MEDS ORDERED: FENTANYL CITRATE INJ/PF 100 MCG/2 ML AMPUL IV ONE (15:29)
--- NOTE | 2018-04-08 15:32 | ER Document Report ---
ED GI/ - General Chief Complaint: Flank Pain Stated Complaint: ABDOMINAL PAIN Time Seen by Provider: 04/08/18 15:24 Notes: History of Present Illness Time: [ ] Chief Complaint: [flank pain] [ ] History obtained from [patient] 57 years old male with a history of kidney stones in the right side the past had lithotripsy, has not today with sudden onset of right flank pain yesterday since then the pain was on and off radiating towards the groin. Sharp CVA in nature when it comes on. Denies any hematuria dysuria or frequency. Denies any fever chills. Nauseous but no vomiting. Symptoms began: [today] Onset: [gradual] Timing: [intermittent] Quality: [``pain] Intensity: [severe] Location: [flank] Migration: [none] Radiation: [none] Mechanism: [none] Aggravating factors: [none] Relieving factors: [none] Denies significant traumatic injury Denies weakness, numbness, incontinence Denies IV drug use Denies trouble with urination Review of Systems All other systems negative as reviewed. CONSTITUTIONAL No fever. EYES No eye pain. ENT No URI symptoms, No sore throat, No ear pain. CARDIOVASCULAR No chest pain, No palpitations, No edema. RESPIRATORY No Cough, No SOB, No wheezing. GASTROINTESTINAL No abdominal pain, No diarrhea, No vomiting, No constipation, No melena, No rectal bleeding. GENITOURINARY No UTI symptoms, No bleeding. MUSCULOSKELETAL + flank pain. SKIN No Rash. NEUROLOGIC No Headache, No recent seizures, No paralysis, No parathesias. Physical Exam CONSTITUTIONAL Vital signs reviewed, uncomfortable, Alert and oriented X 3. Seems to be in pain HEAD Atraumatic, Normal cephalic. EYES No discharge from eyes, Sclera are not injected, Extraocular muscles intact, Conjunctiva are normal. ENT Ears normal to inspection, Nose examination normal, Oropharynx normal, Mucous membranes pink, moist, normal in color. NECK Normal ROM, No jugular venous distention, No meningeal signs, No carotid bruit. RESPIRATORY/CHEST Chest is non-tender, Breath sounds normal, No respiratory distress. CARDIOVASCULAR RRR, Heart sounds normal. ABDOMEN Abdomen is non-tender, No masses, Bowel sounds normal, No distension, No peritoneal signs. BACK Normal inspection. no focal bony tenderness, no CVA tenderness, no soft tissue tenderness, negative straight leg test bilaterally, bilateral 2+ knee deep tendon reflexes. UPPER EXTREMITY Inspection normal, No cyanosis/clubbing/edema, 2+ radial pulses. LOWER EXTREMITY Inspection normal, No cyanosis/clubbing/edema, 2+ femoral pulses. NEURO Motor exam normal, Sensory exam normal. SKIN Skin is warm and dry, No rash. PSYCHIATRIC Normal affect. TRAVEL OUTSIDE OF THE [place] IN LAST 30 DAYS: No - HPI Notes: 04/08/18 15:31 Dictated - Related Data Allergies/Adverse Reactions: No Known Allergies Allergy (Verified 04/08/18 14:28) Past Medical History - Social History Smoking Status: Never Smoker Chew tobacco use (# tins/day): No Frequency of alcohol use: None Drug Abuse: None Family History: Arthritis, DM, Hyperlipidemia, Hypertension. denies: CAD, COPD , CVA, Malignancy, Thyroid Disfunction Patient has suicidal ideation: No Patient has homicidal ideation: No - Past Medical History Cardiac Medical History: Reports: Hx Hypercholesterolemia, Hx Hypertension Endocrine Medical History: Reports: Hx Diabetes Mellitus Type 1, Hx Diabetes Mellitus Type 2 Renal/ Medical History: Reports: Hx Kidney Stones. Denies: Hx Peritoneal Dialysis Past Surgical History: Reports: Other - Lithotripsy for kidney stones - Immunizations Hx Diphtheria, Pertussis, Tetanus Vaccination: Yes Review of Systems - Review of Systems Notes: Dictated Physical Exam - Vital signs Vitals: Temp Pulse Resp BP Pulse Ox 98.2 F 84 16 128/67 H 98 04/08/18 14:32 04/08/18 14:32 04/08/18 14:32 04/08/18 14:32 04/08/18 14:32 - Notes Notes: Dictated Course - Vital Signs Vital signs: Temp Pulse Resp BP Pulse Ox 98.2 F 84 16 128/67 H 98 04/08/18 14:32 04/08/18 14:32 04/08/18 14:32 04/08/18 14:32 04/08/18 14:32 Discharge - Discharge Referrals: SINA PETE MD [Primary Care Provider] - Follow up as needed
[2018-04-08 16:04] LABS: ABSOLUTE BASOPHILS # (AUTO) 0.1 10^3/uL (0.0-0.2); ABSOLUTE EOSINOPHILS # (AUTO) 0.2 10^3/uL (0.0-0.6); ABSOLUTE MONOCYTES (AUTO) 0.7 10^3/uL (0.1-1.4); ABSOLUTE NEUT (AUTO) 5.6 10^3/uL (1.7-8.2); BASOPHILS % (AUTO) 0.8 % (0-2); EOSINOPHILS % (AUTO) 2.2 % (0-6); HEMATOCRIT 44.6 % (37.9-51.0); HEMOGLOBIN 14.8 g/dL (13.5-17.0); LYMPHOCYTES % (AUTO) 23.5 % (13-45); MEAN CORPUSCULAR HGB CONC 33.1 g/dL (32.0-36.0); MEAN CORPUSCULAR VOLUME 85 fl (80-97); MONOCYTES % (AUTO) 8.4 % (3-13); PLATELET COUNT 279 10^3/uL (150-450); RED BLOOD COUNT 5.27 10^6/uL (4.35-5.55); RED CELL DISTRIBUTION WIDTH 14.5 % (11.5-14.0); SEGMENTED NEUTROPHILS % (AUTO) 65.1 % (42-78); TOTAL CELLS COUNTED % (AUTO) 100 %; WHITE BLOOD COUNT 8.6 10^3/uL (4.0-10.5)
[2018-04-08 16:20] LABS: APPEARANCE,URINE CLEAR; BILIRUBIN,URINE NEGATIVE (NEGATIVE); CALCIUM OXALATE CRYSTALS,URINE FEW /HPF; COLOR,URINE YELLOW; GLUCOSE, URINE NEGATIVE (NEGATIVE); KETONES,URINE NEGATIVE (NEGATIVE); LEUKOCYTE ESTERASE,URINE NEGATIVE (NEGATIVE); NITRITE,URINE NEGATIVE (NEGATIVE); PROTEIN,URINE NEGATIVE (NEGATIVE); URINE SPECIFIC GRAVITY 1.024; UROBILINOGEN,URINE NEGATIVE mg/dL (<2.0)
[2018-04-08 16:24] LABS: ALANINE AMINOTRANSFERASE 29 U/L (21-72); ALBUMIN 3.9 g/dL (3.5-5.0); ALKALINE PHOSPHATASE 56 U/L (38-126); ANION GAP 13 (5-19); ASPARTATE AMINO TRANSFERASE 22 U/L (17-59); BILIRUBIN,DIRECT 0.1 mg/dL (0.0-0.4); BILIRUBIN,TOTAL 0.7 mg/dL (0.2-1.3); BLOOD UREA NITROGEN 16 mg/dL (7-20); CALCIUM 10.2 mg/dL (8.4-10.2); CARBON DIOXIDE 24 mmol/L (22-30); CHLORIDE 108 mmol/L (98-107); GLUCOSE 110 mg/dL (75-110); LIPASE 222.4 U/L (23-300); POTASSIUM 4.6 mmol/L (3.6-5.0); SODIUM 144.6 mmol/L (137-145); TOTAL PROTEIN 6.9 g/dL (6.3-8.2)
--- NOTE | 2018-04-08 17:23 | RADIOLOGY REPORT (SQ) ---
EXAM DESCRIPTION: CT LTD RENAL STONE PROTOCOL ON COMPLETED DATE/TIME: 04/08/2018 5:04 pm REASON FOR STUDY: Right flank pain COMPARISON: 04/04/2017 TECHNIQUE: CT scan of the abdomen and pelvis performed without intravenous or oral contrast. Images reviewed with lung, soft tissue, and bone windows. Reconstructed coronal and sagittal MPR images revi ewed. All images stored on PACS. All CT scanners at this facility use dose modulation, iterative reconstruction, and/or weight based d osing when appropriate to reduce radiation dose to as low as reasonably achievable (ALARA). [facility]: Dose Right [facility]: CareDose [facility]: Dose Right [facility]: Teradose 4D [facility]: Smart Voltari RADIATION DOSE: CT Rad equipment meets quality standard of care and radiation dose reduction techniq ues were employed. CTDIvol: 12.0 mGy. DLP: 699 mGy-cm.mGy. LIMITATIONS: None. FINDINGS: LOWER CHEST: No significant findings. No nodules or infiltrates. NON-CONTRASTED LIVER, SPLEEN, ADRENALS: Evaluation limited by lack of IV contrast. No identified sign ificant masses. PANCREAS: No masses. No peripancreatic inflammatory changes. GALLBLADDER: No identified stones by CT criteria. No inflammatory changes to suggest cholecystitis. RIGHT KIDNEY AND URETER: Small nonobstructing intrarenal calculus. No hydronephrosis or hydroureter. No mass. LEFT KIDNEY AND URETER: No suspicious masses. Assessment limited by lack of IV contrast. No signifi cant calcifications. No hydronephrosis or hydroureter. AORTA AND RETROPERITONEUM: No aneurysm. No retroperitoneal masses or adenopathy. BOWEL AND PERITONEAL CAVITY: No obvious masses or inflammatory changes. No free fluid. APPENDIX: Normal. PELVIS, BLADDER, AND ABDOMINAL WALL:Small uncomplicated right inguinal hernia. BONES: No significant findings. OTHER: No other significant finding. IMPRESSION: Small nonobstructing right renal calculus. No ureteral stone or obstruction. Small unc omplicated right inguinal hernia. COMMENT: Quality ID # [id number]: Final reports with documentation of one or more dose reduction techniques (e.g., Automated exposure control, adjustment of the mA and/or kV according to patient size, use of iterative reconstruction technique) TECHNICAL DOCUMENTATION: JOB ID: [id number]- All Rights Reserved Reading location - IP/workstation name: [email or web address]
--- NOTE | 2018-04-08 18:03 | ER Document Report ---
ED GI/ - General Chief Complaint: Flank Pain Stated Complaint: ABDOMINAL PAIN Time Seen by Provider: 04/08/18 15:24 Mode of Arrival: Ambulatory Information source: Patient Notes: 57-year-old male was presented to ED for complaint of right flank pain. He states he has a history of kidney stones with lithotripsy. He states that the pain started yesterday and became much worse radiating to his groin. States the pain comes and goes. He denies any hematuria or burning or discomfort with urination. He states he did have some nausea but did not have any vomiting. TRAVEL OUTSIDE OF THE [place] IN LAST 30 DAYS: No - HPI Patient complains to provider of: Flank pain Onset: Other - Sunday Timing/Duration: Intermittent Quality of pain: Sharp Severity at maximum: Moderate Severity in ED: Moderate Pain Level: 3 Associated symptoms: Nausea. denies: Vomiting Exacerbated by: Movement, Walking Relieved by: Denies Similar symptoms previously: Yes Recently seen / treated by doctor: No - Related Data Allergies/Adverse Reactions: No Known Allergies Allergy (Verified 04/08/18 14:28) Past Medical History - General Information source: Patient - Social History Smoking Status: Never Smoker Cigarette use (# per day): No Chew tobacco use (# tins/day): No Smoking Education Provided: No Frequency of alcohol use: None Drug Abuse: None Occupation: [employer] Lives with: Family Family History: Arthritis, DM, Hyperlipidemia, Hypertension. denies: CAD, COPD , CVA, Malignancy, Thyroid Disfunction Patient has suicidal ideation: No Patient has homicidal ideation: No - Past Medical History Cardiac Medical History: Reports: Hx Hypercholesterolemia, Hx Hypertension Pulmonary Medical History: Reports: None EENT Medical History: Reports: None Neurological Medical History: Reports: None Endocrine Medical History: Reports: Hx Diabetes Mellitus Type 2 Renal/ Medical History: Reports: Hx Kidney Stones Malignancy Medical History: Reports None GI Medical History: Reports: None Musculoskeletal Medical History: Reports None Skin Medical History: Reports None Psychiatric Medical History: Reports: None Traumatic Medical History: Reports: None Past Surgical History: Reports: Other - Lithotripsy for kidney stones - Immunizations Immunizations up to date: Yes Hx Diphtheria, Pertussis, Tetanus Vaccination: Yes Review of Systems - Review of Systems Constitutional: No symptoms reported EENT: No symptoms reported Cardiovascular: No symptoms reported Respiratory: No symptoms reported Gastrointestinal: Nausea Genitourinary: Flank pain Male Genitourinary: No symptoms reported Musculoskeletal: No symptoms reported Skin: No symptoms reported Hematologic/Lymphatic: No symptoms reported Neurological/Psychological: No symptoms reported -: Yes All other systems reviewed and negative Physical Exam - Vital signs Vitals: Temp Pulse Resp BP Pulse Ox 98.2 F 84 16 128/67 H 98 04/08/18 14:32 04/08/18 14:32 04/08/18 14:32 04/08/18 14:32 04/08/18 14:32 Interpretation: Normal - General General appearance: Appears well, Alert - HEENT Head: Normocephalic, Atraumatic Eyes: Normal Pupils: PERRL - Respiratory Respiratory status: No respiratory distress Chest status: Nontender Breath sounds: Normal Chest palpation: Normal - Cardiovascular Rhythm: Regular Heart sounds: Normal auscultation Murmur: No - Abdominal Inspection: Normal Distension: No distension Bowel sounds: Normal Tenderness: Tender - Bilateral lower Organomegaly: No organomegaly - Back Back: Normal, CVA tenderness - Right - Extremities General upper extremity: Normal inspection, Nontender, Normal color, Normal ROM , Normal temperature General lower extremity: Normal inspection, Nontender, Normal color, Normal ROM , Normal temperature, Normal weight bearing. No: Lisandro's sign - Neurological Neuro grossly intact: Yes Cognition: Normal Orientation: AAOx4 Popeye Coma Scale Eye Opening: Spontaneous Popeye Coma Scale Verbal: Oriented [place] Coma Scale Motor: Obeys Commands Popeye Coma Scale Total: 15 Speech: Normal Motor strength normal: LUE, RUE, LLE, RLE Sensory: Normal - Psychological Associated symptoms: Normal affect, Normal mood - Skin Skin Temperature: Warm Skin Moisture: Dry Skin Color: Normal Course - Vital Signs Vital signs: Temp Pulse Resp BP Pulse Ox 97.6 F 66 18 131/59 H 100 04/08/18 18:11 04/08/18 18:11 04/08/18 18:11 04/08/18 18:11 04/08/18 18:11 - Laboratory Result Diagrams: 04/08/18 15:33 04/08/18 15:33 Laboratory results interpreted by me: 04/08/18 04/08/18 15:33 15:33 RDW 14.5 H Chloride 108 H - Diagnostic Test Radiology reviewed: Image reviewed, Reports reviewed Discharge - Discharge Clinical Impression: Acute right flank pain, Right inguinal hernia, Right nonobstructing kidney stone Condition: Stable Disposition: HOME, SELF-CARE Additional Instructions: Hernia You have a hernia. A hernia forms at a weak spot in the abdominal wall. Bowel slips out of the abdominal cavity into the weak spot. Hernias tend to occur in the groin (especially in males), the fold of the thigh, the naval, or at a surgical scar. Surgical repair of the defect is usually necessary. The problem tends to get worse. It's important that you follow up as recommended. For now, you should avoid straining, heavy lifting, and vigorous exercise. Complications occur if the hernia becomes tightly stuck. You should come back immediately if the area becomes increasingly painful, swollen, or discolored, or if you develop abdominal pain and vomiting. KIDNEY STONE: You are passing or have passed a kidney stone. These stones are usually due to increased calcium or uric acid concentrations in your urine. Stones within the kidney itself are not painful. The pain occurs as the stone leaves the kidney to pass down the long tube, called the ureter, leading to the bladder. If the stone is small, it will usually pass by itself. Most patients can pass the stone at home. You will usually receive medications for pain, nausea or vomiting, and sometimes a medication to assist in passing the kidney stone. However, if the pain is very severe or if vomiting prevents you from taking oral pain medications, you may need to return for further treatment. Drink three or four quarts of fluids per day. You will be given pain medication (if needed) and urine strainers. Strain all your urine to see if the stone passes. If your doctor has asked you to bring the stone in for analysis, return with the stone once it has passed. Return if pain or vomiting become severe, if you develop a high fever, if you are unable to pass your urine, or if other unusual symptoms occur. ANTINAUSEA MEDICATION: You have been given a medication to suppress nausea and vomiting. This type of medication can be given as a shot, pill, or suppository. It will usually last for many hours. Pills and shots usually last six to eight hours, suppositories last about 12 hours. For the typical illness, only one or two doses of the medication may be necessary. Mild lightheadedness may occur. This type of medicine can cause drowsiness. Do not drive or operate dangerous machinery while under its influence. Do not mix with alcohol. See your doctor at once if you have muscle spasms or tightness, or uncontrollable motions (particularly of the neck, mouth, or jaw). Persistent vomiting or severe lightheadedness should also be evaluated by the physician. Intravenous (IV) Fluids As part of your care today, you received intravenous (IV) fluids. IV fluids are administered to patients who are dehydrated or to those who have certain chemical (electrolyte) abnormalities that need correcting. Pain Medication Injection You have received an injection of a pain medication. You should experience significant pain relief within 45 minutes. This drug is a narcotic - - it will impair your judgement, slow your reaction time and make you sleepy ( as well as relieve your pain). Narcotics also can cause nausea. You should not drive, work with machinery, or perform any task requiring mental alertness until all effects of the medication are gone -- six to eight hours. Do not take any alcohol, or sedatives, and do not take any other medication without checking with your physician. FOLLOW-UP CARE: If you have been referred to a physician for follow-up care, call the physician s office for an appointment as you were instructed or within the next two days. If you experience worsening or a significant change in your symptoms, notify the physician immediately or return to the Emergency Department at any time for re-evaluation. Prescriptions: Ibuprofen 600 mg PO Q6HP PRN #20 tablet PRN Reason: Ondansetron [Zofran Odt 4 mg Tablet] 1 tab PO Q6H #15 tab.rapdis Forms: Elevated Blood Pressure, Return to Work Referrals: SINA PETE MD [Primary Care Provider] - Follow up tomorrow [facility] [Provider Group] - Follow up as needed
[2018-04-08 18:11] VITALS: BP 131/59
== END 2018-04-08 18:24 | disposition home or self-care (01) ==
LOC: ER 14:27
DX: K40.90 Unilateral inguinal hernia, without obstruction or gangrene, not specified as recurrent (principal); N20.0 Calculus of kidney; R10.9 Unspecified abdominal pain; R11.0 Nausea; E11.9 Type 2 diabetes mellitus without complications; I10 Essential (primary) hypertension
CPT/HCPCS: 99284; 96361; 96374; 96375; 36415; 83690; 85025; 80053; 81001; 76380; J3010; J2405; J7030

== ENCOUNTER 2018-05-03 01:21 | Emergency (ER) | payer BC ==
[2018-05-03] MEDS ORDERED: NORMAL SALINE 1000 ML 1,000 ML IV ONE (02:08)
[2018-05-03] MEDS ORDERED: MORPHINE SULFATE 10 MG/ML INJ IV ONE (02:08)
[2018-05-03] MEDS ORDERED: ONDANSETRON HCL INJ/PF 4 MG/2 ML SDV IV ONE (02:08)
--- NOTE | 2018-05-03 02:17 | ER Document Report ---
ED GI/ - General Chief Complaint: Abdominal Pain Stated Complaint: RIGHT AND LEFT SIDE PAIN Time Seen by Provider: 05/03/18 01:58 Notes: Patient is a 57-year-old male that comes to the emergency department for chief complaint of sharp mid to lower abdominal pain, he states the pain woke him up from his sleep and has worsened, he reports nausea. He denies vomiting, fever, flank pain, urinary symptoms. Past medical history includes kidney stones, type 2 diabetes, he states he has had ureteral stents but denies any surgeries. He was diagnosed with an inguinal hernia (he is not sure which side), reports pain on both left and right sides. He has a follow-up with the surgeon on May 24 he reports. Patient states that he did not have a bowel movement today, bowel movement most recently was small and hard. TRAVEL OUTSIDE OF THE [place] IN LAST 30 DAYS: No - Related Data Allergies/Adverse Reactions: No Known Allergies Allergy (Verified 04/08/18 14:28) Past Medical History - General Information source: Patient - Social History Smoking Status: Never Smoker Frequency of alcohol use: None Lives with: Family Family History: Arthritis, DM, Hyperlipidemia, Hypertension. denies: CAD, COPD , CVA, Malignancy, Thyroid Disfunction - Past Medical History Cardiac Medical History: Reports: Hx Hypercholesterolemia, Hx Hypertension Endocrine Medical History: Reports: Hx Diabetes Mellitus Type 1, Hx Diabetes Mellitus Type 2 Renal/ Medical History: Reports: Hx Kidney Stones. Denies: Hx Peritoneal Dialysis Past Surgical History: Reports: Other - Lithotripsy for kidney stones - Immunizations Immunizations up to date: Yes Hx Diphtheria, Pertussis, Tetanus Vaccination: Yes Review of Systems - Review of Systems Constitutional: No symptoms reported EENT: No symptoms reported Cardiovascular: No symptoms reported Respiratory: No symptoms reported Gastrointestinal: See HPI Genitourinary: No symptoms reported Male Genitourinary: No symptoms reported Musculoskeletal: No symptoms reported Skin: No symptoms reported Hematologic/Lymphatic: No symptoms reported Neurological/Psychological: No symptoms reported Physical Exam - Vital signs Vitals: Pulse Ox 98 05/03/18 02:30 - Notes Notes: GENERAL: Alert, interacts well. No acute distress. HEAD: Normocephalic, atraumatic. EYES: Pupils equal, round, and reactive to light. Extraocular movements intact. ENT: Oral mucosa moist, tongue midline. Oropharynx unremarkable. Airway patent. Nares patent, no nasal septal hematoma, TM's intact. NECK: Full range of motion. Supple. Trachea midline. LUNGS: Clear to auscultation bilaterally, no wheezes, rales, or rhonchi. No respiratory distress. HEART: Regular rate and rhythm. No murmur ABDOMEN: Abdomen seems minimally distended, however there is no guarding, there is very minimal generalized tenderness, questionable area of right inguinal hernia palpated although this is soft, no guarding, no hardened hernia, no incarcerated hernia noted. GENITOURINARY: Deferred EXTREMITIES: Moves all 4 extremities spontaneously. No edema, normal radial and dorsalis pedis pulses bilaterally. No cyanosis. BACK: no cervical, thoracic, lumbar midline tenderness. No saddle anesthesia, normal distal neurovascular exam. NEUROLOGICAL: Alert and oriented x3. Normal speech. [cranial nerves II through XII grossly intact]. PSYCH: Normal affect, normal mood. SKIN: Warm, dry, normal turgor. No rashes or lesions noted. Course - Re-evaluation Re-evalutation: CBC, chemistry, lactic acid without specific or acute concerning or normality. Urinalysis unremarkable. I do not suspect patient is passing a kidney stone. X -ray does not show a stone, does not show obstruction, does indicate a large stool load bilaterally per my read. No acute findings per radiologist read. Patient is well-appearing, unremarkable abdomen with only minimal tenderness, no evidence of encourage him based on his exam. I discussed results with patient in detail. Discussed treatment for retained stool, discussed precautions with hernia, discussed follow-up and return precautions in detail. Patient states satisfaction and agreement with plan. - Vital Signs Vital signs: Temp Pulse Resp BP Pulse Ox 97.8 F 135/80 H 98 05/03/18 04:13 05/03/18 04:12 05/03/18 04:12 - Laboratory Result Diagrams: 05/03/18 02:36 05/03/18 02:36 Laboratory results interpreted by me: 05/03/18 05/03/18 05/03/18 02:17 02:36 02:36 RDW 14.8 H BUN 22 H Glucose 129 H Urine Urobilinogen 2.0 H Discharge - Discharge Clinical Impression: Abdominal pain Qualifiers: Abdominal location: generalized Qualified Code(s): R10.84 - Generalized abdominal pain Condition: Stable Disposition: HOME, SELF-CARE Additional Instructions: Your workup does not show a passing stone, your evaluation does not indicate an incarcerated (trapped) hernia. You have a lot of stool that you need to pass, this is most likely the cause of your pain. Take the magnesium citrate at home (start with 1/4 to 1/2 of the bottle, wait a few hours, and then you can finish it if needed). This should help move your bowels. Take the medications if needed for nausea/pain. Take the colace stool softener daily afterwards, and follow up closely with your surgical appointment. Return if you worsen. Severe pain, vomiting, fever, bulging of the hernia or inability to push it back in, or any other concerning symptoms. Prescriptions: Dicyclomine HCl [Bentyl 20 mg Tablet] 20 mg PO QID PRN #20 tablet PRN Reason: Docusate Sodium [Colace 100 mg Capsule] 100 mg PO ASDIR PRN #30 capsule PRN Reason: Promethazine HCl [Phenergan 25 mg Tablet] 25 mg PO Q6H PRN #15 tablet PRN Reason: Referrals: SINA PETE MD [Primary Care Provider] - Follow up in 3-5 days
[2018-05-03 02:43] LABS: APPEARANCE,URINE CLEAR; BILIRUBIN,URINE NEGATIVE (NEGATIVE); COLOR,URINE YELLOW; GLUCOSE, URINE NEGATIVE (NEGATIVE); KETONES,URINE NEGATIVE (NEGATIVE); LEUKOCYTE ESTERASE,URINE NEGATIVE (NEGATIVE); NITRITE,URINE NEGATIVE (NEGATIVE); PROTEIN,URINE NEGATIVE (NEGATIVE); URINE SPECIFIC GRAVITY 1.028
[2018-05-03 02:45] LABS: ABSOLUTE EOSINOPHILS # (AUTO) 0.2 10^3/uL (0.0-0.6); ABSOLUTE LYMPHOCYTES (AUTO) 1.7 10^3/uL (0.5-4.7); ABSOLUTE MONOCYTES (AUTO) 0.6 10^3/uL (0.1-1.4); ABSOLUTE NEUT (AUTO) 4.3 10^3/uL (1.7-8.2); BASOPHILS % (AUTO) 0.6 % (0-2); EOSINOPHILS % (AUTO) 2.6 % (0-6); HEMATOCRIT 44.1 % (37.9-51.0); HEMOGLOBIN 14.2 g/dL (13.5-17.0); LYMPHOCYTES % (AUTO) 24.4 % (13-45); MEAN CORPUSCULAR HEMOGLOBIN 27.2 pg (27.0-33.4); MEAN CORPUSCULAR HGB CONC 32.2 g/dL (32.0-36.0); MEAN CORPUSCULAR VOLUME 85 fl (80-97); MONOCYTES % (AUTO) 9.4 % (3-13); PLATELET COUNT 241 10^3/uL (150-450); RED BLOOD COUNT 5.22 10^6/uL (4.35-5.55); RED CELL DISTRIBUTION WIDTH 14.8 % (11.5-14.0); TOTAL CELLS COUNTED % (AUTO) 100 %; WHITE BLOOD COUNT 6.8 10^3/uL (4.0-10.5)
[2018-05-03 02:55] LABS: ANION GAP 10 (5-19); BLOOD UREA NITROGEN 22 mg/dL (7-20); CALCIUM 9.9 mg/dL (8.4-10.2); CARBON DIOXIDE 26 mmol/L (22-30); CHLORIDE 107 mmol/L (98-107); GLUCOSE 129 mg/dL (75-110); POTASSIUM 4.2 mmol/L (3.6-5.0); SODIUM 143.2 mmol/L (137-145)
--- NOTE | 2018-05-03 03:07 | RADIOLOGY REPORT (SQ) ---
CLINICAL HISTORY: worsening abdominal pain, no recent bowel movement COMPARISON: None. TECHNIQUE: XR ABDOMEN SUPINE AND ERECT WITH CHEST (ABD ACUTE SERIES) 05/03/2018 2:15 AM AEROSPACE CONTROL AND WARNING SYSTEMS FINDINGS: Bowel gas pattern is nonspecific. There are no abnormal radiopaque foreign bodies or abnormal calcifications. Osseous structures are grossly unremarkable. Cardiac silhouette is borderline in size. Lungs are clear. IMPRESSION: No bowel obstruction.
[2018-05-03] MEDS ORDERED: MAGNESIUM CITRATE 296 ML BOTTLE PO ONE (03:52)
[2018-05-03 04:14] VITALS: BP 135/80
== END 2018-05-03 04:24 | disposition home or self-care (01) ==
LOC: ER 01:21
DX: R10.84 Generalized abdominal pain (principal); R10.30 Lower abdominal pain, unspecified; R11.0 Nausea; Z98.890 Other specified postprocedural states; I10 Essential (primary) hypertension; E11.9 Type 2 diabetes mellitus without complications
CPT/HCPCS: 99284; 96361; 96374; 96375; 36415; 83605; 85025; 80048; 81001; 74022; J3490; J2270; J2405; J7030

== ENCOUNTER 2018-05-24 05:15 | Day surgery (SDC) | payer BC ==
--- NOTE | 2018-05-17 09:26 | EKG REPORT ---
SEVERITY:- NORMAL ECG - SINUS RHYTHM : Confirmed by: Bea Baer 17-May-2018 09:25:33
[2018-05-17 09:37] LABS: HEMOGLOBIN 14.7 g/dL (13.5-17.0); MEAN CORPUSCULAR HEMOGLOBIN 27.7 pg (27.0-33.4); MEAN CORPUSCULAR HGB CONC 32.7 g/dL (32.0-36.0); MEAN CORPUSCULAR VOLUME 85 fl (80-97); PLATELET COUNT 228 10^3/uL (150-450); RED BLOOD COUNT 5.32 10^6/uL (4.35-5.55); RED CELL DISTRIBUTION WIDTH 14.5 % (11.5-14.0); WHITE BLOOD COUNT 6.4 10^3/uL (4.0-10.5)
[2018-05-17 10:06] LABS: ANION GAP 11 (5-19); BLOOD UREA NITROGEN 12 mg/dL (7-20); CALCIUM 9.8 mg/dL (8.4-10.2); CARBON DIOXIDE 28 mmol/L (22-30); CHLORIDE 105 mmol/L (98-107); GLUCOSE 119 mg/dL (75-110); POTASSIUM 4.7 mmol/L (3.6-5.0)
--- NOTE | 2018-05-17 10:08 | RADIOLOGY REPORT (SQ) ---
EXAM DESCRIPTION: CHEST PA/LATERAL COMPLETED DATE/TIME: 05/17/2018 9:57 am REASON FOR STUDY: PRE-OP COMPARISON: 04/26/2009 EXAM PARAMETERS: NUMBER OF VIEWS: two views TECHNIQUE: Digital Frontal and Lateral radiographic views of the chest acquired. RADIATION DOSE: NA LIMITATIONS: Low lung volumes. FINDINGS: LUNGS AND PLEURA: No opacities, masses or pneumothorax. No pleural effusion. MEDIASTINUM AND HILAR STRUCTURES: No masses or contour abnormalities. HEART AND VASCULAR STRUCTURES: Heart normal size. No evidence for failure. BONES: No acute findings. HARDWARE: None in the chest. OTHER: No other significant finding. IMPRESSION: Negative chest allowing for low lung volumes. TECHNICAL DOCUMENTATION: JOB ID: [id number] [employer]- All Rights Reserved Reading location - IP/workstation name: [email or web address]
[~2018-05-24 05:15] MED LIST: CEFAZOLIN 2 GM/D5W RTU 2 GM/50 ML RTUPB IV PRN; IBUPROFEN 800 MG in NORMAL SALINE 250 ML IV PRN; LACTATED RINGERS 1000 ML IV PRN
[2018-05-24] MEDS ORDERED: CEFAZOLIN 2 GM/D5W RTU 2 GM/50 ML RTUPB IV ONE (05:28)
[2018-05-24] MEDS ORDERED: DEXAMETHASONE SOD PHOSPHATE INJ 4 MG/1 ML VIAL ONE (06:30)
[2018-05-24] MEDS ORDERED: MIDAZOLAM 2 MG/2 ML INJ ONE (06:30)
[2018-05-24] MEDS ORDERED: LIDOCAINE 2% INJ-PF (20 MG/ML) 10 ML AMPUL ONE (06:30)
[2018-05-24] MEDS ORDERED: ONDANSETRON HCL INJ/PF 4 MG/2 ML SDV ONE (06:30)
[2018-05-24] MEDS ORDERED: FENTANYL CITRATE INJ/PF 250 MCG/5 ML AMPULE ONE (06:30)
[2018-05-24] MEDS ORDERED: PROPOFOL INJ 200 MG/20 ML VIAL IV ONE (06:31)
[2018-05-24] MEDS ORDERED: ACETAMINOPHEN 1,000 MG/100 ML RTUPB IV ONE (06:31)
[2018-05-24] MEDS ORDERED: BUPIVACAINE HCL 0.25 % INJ/PF (2.5 MG/1 ML) 30 ML VIAL ONE (06:45)
[2018-05-24] MEDS ORDERED: SUGAMMADEX SODIUM 200 MG/2 ML SDV IV ONE (06:52)
[2018-05-24] MEDS ORDERED: FAMOTIDINE INJ/PF 20 MG/2 ML SDV IV ONE (07:13)
[2018-05-24] MEDS ORDERED: METOCLOPRAMIDE HCL INJ/PF 10 MG/2 ML SDV ONE (07:13)
[2018-05-24] MEDS ORDERED: FENTANYL CITRATE INJ/PF 100 MCG/2 ML AMPUL IV PRN ×3 (08:26)
[2018-05-24] MEDS ORDERED: ONDANSETRON HCL INJ/PF 4 MG/2 ML SDV IV PRN (08:26)
[2018-05-24] MEDS ORDERED: DIPHENHYDRAMINE HCL 50 MG/ML VIAL IV PRN (08:26)
[2018-05-24] MEDS ORDERED: MORPHINE SULFATE 10 MG/ML INJ IV PRN (08:26)
[2018-05-24] MEDS ORDERED: PROMETHAZINE HCL INJ 25 MG/1 ML VIAL IV PRN ×2 (08:26)
[2018-05-24] MEDS ORDERED: MEPERIDINE HCL/PF INJ 25 MG/1 ML DISP.SYRIN IV PRN (08:26)
--- NOTE | 2018-05-24 10:13 | Operative Report ---
Operative Report DATE OF SURGERY: 05/24/18 PREOPERATIVE DIAGNOSIS: Bilateral inguinal hernias POSTOPERATIVE DIAGNOSIS: Bilateral indirect inguinal hernias OPERATION: Bilateral robotic assisted laparoscopic inguinal hernia repair with mesh SURGEON: MARIA DEL ROSARIO LATHAM ANESTHESIA: GA TISSUE REMOVED OR ALTERED: None COMPLICATIONS: None apparent ESTIMATED BLOOD LOSS: Minimal PROCEDURE: Drains/implants: Right and left large 3 DMax inguinal hernia mesh. Procedure in detail: After informed consent was obtained, the patient was brought to the operating room laid in the supine position. The area of the abdomen was prepped and draped in normal sterile fashion. A supraumbilical incision was created with a 15 blade scalpel. Dissection was carried through the subcutaneous tissue using sharp and blunt dissection. The linea alba fascia was incised sharply, the abdomen was entered sharply. The balloon trocar was inserted, and pneumoperitoneum was achieved. An 8 mm robotic trochars were then placed in the right and left lateral abdominal wall under direct laparoscopic visualization. The robot was then brought over the patient , and docked appropriately. I then assumed my position at the surgeon's console. Attention was turned to the right groin. An incision was created in the peritoneum 2-3 cm superior to the inguinal canal. A preperitoneal dissection was undertaken. The patient had a large lipoma of the cord which was reduced. The hernia sac was freed from the cord structures, taking great care not to injure the cord structures. Once the preperitoneal space was opened, a large right-sided 3 DMax inguinal hernia mesh was placed into the space. The mesh was situated over the defect. It was sutured medially and superiorly using 2-0 Vicryl suture. The peritoneum was then closed using 2-0 V lock suture in simple running fashion. Attention was then turned to the left side. The left side was examined. A preperitoneal dissection was undertaken approximately 2-3 cm superior to the inguinal hernia defect. The preperitoneal dissection was done using sharp dissection, blunt dissection, and electrocautery. A large lipoma of the cord was found and an indirect inguinal hernia defect. This was reduced. The hernia sac was freed from the cord structures, taking great care not to injure the cord structures. Once this was successful a large left-sided 3 DMax inguinal hernia mesh was placed into the preperitoneal space. It was situated of the defect. It was sutured to the abdominal wall using 2-0 Vicryl suture in simple interrupted fashion. It was tacked medially and superiorly. Once this was completed the peritoneum was closed using 2-0 V lock suture in simple running fashion. Once this was completed, the repairs appeared to be in good order. The robot was undocked, and I scrubbed back into the case. The trochars were at this time removed, and pneumoperitoneum was relieved. The supraumbilical fascia was closed using 0 Vicryl suture in [id number] fashion. The overlying skin was closed using 4-0 Vicryl Rapide suture in subcuticular fashion. All sponge, instrument, needle counts were correct x2. Condition: Stable.
[2018-05-24] MEDS ORDERED: FENTANYL CITRATE INJ/PF 100 MCG/2 ML AMPUL ONE (10:19)
--- NOTE | 2018-05-24 10:22 | Discharge Summary ---
Discharge Summary (SDC) - Discharge Final Diagnosis: Bilateral inguinal hernias Date of Surgery: 05/24/18 Discharge Date: 05/24/18 Condition: Stable Treatment or Instructions: Discharge home. Diet as tolerated. Activity: No lifting greater than 10 pounds x 4 weeks. Follow-up with me in 7-10 days. Blairs 10/325 mg p.o. every 6 hours as needed for pain. Okay to shower on Sunday. No tub baths times 2 weeks. Referrals: SINA PETE MD [Primary Care Provider] - Discharge Diet: As Tolerated Respiratory Treatments at Home: Deep Breathing/Coughing, Incentive Spirometer Discharge Activity: No Lifting Over 10 Pounds Home Care Assistance: None Needed Report the Following to Your Physician Immediately: Shortness of Breath, Nausea , Vomiting, Increase in Pain, Signs of Hyperglycemia, Signs of Hypoglycemia, Fever over 101 Degrees, Unusual Bleeding, Redness
[2018-05-24] MEDS ORDERED: HYDROCODONE/ACETAMINOPHEN 10-325 MG TABLET ONE (11:01)
[2018-05-24] MEDS ORDERED: LORAZEPAM INJ 2 MG/1 ML VIAL ONE (11:20)
[2018-05-24 12:28] VITALS: BP 131/75
[2018-05-24] MEDS ORDERED: SUCCINYLCHOLINE CHLORIDE INJ 200 MG/10 ML VIAL ONE (13:55)
[2018-05-24] MEDS ORDERED: ROCURONIUM BROMIDE INJ 50 MG/5 ML VIAL IV ONE (13:55)
== END 2018-05-24 12:25 | disposition home or self-care (01) ==
LOC: OROUT 05:15
PROVIDERS: ATTEND Surgery
DX: K40.20 Bilateral inguinal hernia, without obstruction or gangrene, not specified as recurrent (principal); I10 Essential (primary) hypertension; E78.00 Pure hypercholesterolemia, unspecified; E11.9 Type 2 diabetes mellitus without complications; Z79.84 Long term (current) use of oral hypoglycemic drugs; Z79.899 Other long term (current) drug therapy
CPT/HCPCS: 49650; S2900; 36415; 71046; 80048; 82947; 82962; 840; 85027; 86850; 86900; 86901; 93005; 93010; C1781; J0131; J0330; J0690; J1100; J1741; J2060; J2250; J2405; J2704; J2765; J3010; J3490; J7050; S0028

== ENCOUNTER 2018-05-26 11:54 | Emergency (ER) | payer BC ==
--- NOTE | 2018-05-26 12:10 | ER Document Report ---
ED Medical Screen (RME) - General Chief Complaint: Testicular Swelling Stated Complaint: TESTICULAR PAIN, SWELLING Time Seen by Provider: 05/26/18 12:07 Mode of Arrival: Ambulatory Information source: Patient, [facility] Records Notes: 57-year-old female with hypertension, hyperlipidemia, type 1 diabetes presents with testicular swelling that started yesterday. Patient reports bilateral hernia repair on May 24, [address] Nixon. Patient complaining of dysuria. I have greeted and performed a rapid initial assessment of this patient. A comprehensive ED assessment and evaluation of the patient, analysis of test results and completion of medical decision making process we will be contacted by additional ED providers. PHYSICAL EXAMINATION: Vital signs reviewed GENERAL: Well-appearing, well-nourished and in no acute distress. LUNGS: No respiratory distress Musculoskeletal: Normal range of motion NEUROLOGICAL: Normal speech, normal gait. PSYCH: Normal mood, normal affect. SKIN: Warm, Dry, normal turgor, no rashes or lesions noted. TRAVEL OUTSIDE OF THE [place] IN LAST 30 DAYS: No - HPI Onset: Yesterday Onset/Duration: Gradual, Persistent Quality of pain: Throbbing Severity: Mild Associated Symptoms: Dysuria. denies: Nausea Exacerbated by: Denies Relieved by: Denies Similar symptoms previously: No Recently seen / treated by doctor: Yes - Related Data Smoking: Non-smoker Frequency of alcohol use: None Drug Abuse: None Allergies/Adverse Reactions: No Known Allergies Allergy (Verified 05/15/18 10:12) Past Medical History - Past Medical History Cardiac Medical History: Reports: Hx Hypercholesterolemia, Hx Hypertension Denies: Hx Coronary Artery Disease, Hx Heart Attack Pulmonary Medical History: Denies: Hx Asthma, Hx Bronchitis, Hx COPD, Hx Pneumonia Neurological Medical History: Denies: Hx Cerebrovascular Accident, Hx Seizures Endocrine Medical History: Reports: Hx Diabetes Mellitus Type 1, Hx Diabetes Mellitus Type 2 Renal/ Medical History: Reports: Hx Kidney Stones. Denies: Hx Peritoneal Dialysis Musculoskeltal Medical History: Denies Hx Arthritis Past Surgical History: Reports: Hx Kidney (Renal Surgery), Other - Lithotripsy for kidney stones - Immunizations Immunizations up to date: Yes Hx Diphtheria, Pertussis, Tetanus Vaccination: Yes History of Influenza Vaccine for 03/2017 - 08/2017 Season: No Physical Exam - Vital signs Vitals: Temp Pulse Resp BP Pulse Ox 98.5 F 86 18 132/74 H 98 05/26/18 11:59 05/26/18 11:59 05/26/18 11:59 05/26/18 11:59 05/26/18 11:59 Course - Vital Signs Vital signs: Temp Pulse Resp BP Pulse Ox 98.5 F 86 18 132/74 H 98 05/26/18 11:59 05/26/18 11:59 05/26/18 11:59 05/26/18 11:59 05/26/18 11:59 Doctor's Discharge - Discharge Referrals: SINA PEET MD [Primary Care Provider] - Follow up as needed
--- NOTE | 2018-05-26 12:54 | RADIOLOGY REPORT (SQ) ---
EXAM DESCRIPTION: U/S SCROTUM W/DOPPLER COMPLETED DATE/TIME: 05/26/2018 12:45 pm REASON FOR STUDY: Testicular swelling COMPARISON: 11/10/2017. TECHNIQUE: Static and realtime estrada scale imaging of the scrotum and testes. Selected color Doppler and spectral images recorded to document blood flow. LIMITATIONS: None. FINDINGS: RIGHT: TESTICLE: Normal size. Normal echotexture. Normal blood flow. No mass. EPIDIDYMIS: Normal. HYDROCELE OR VARICOCELE: Small hydrocele. HERNIA OR EXTRA-TESTICULAR MASS: No. OTHER: No other significant finding. LEFT: TESTICLE: Normal size. Normal echotexture. Normal blood flow. No mass. EPIDIDYMIS: Normal. HYDROCELE OR VARICOCELE: Small hydrocele. HERNIA OR EXTRA-TESTICULAR MASS: No. OTHER: No other significant finding. IMPRESSION: Chronic small bilateral hydroceles. Otherwise unremarkable scrotal ultrasound. TECHNICAL DOCUMENTATION: JOB ID: [id number] [employer]- All Rights Reserved Reading location - IP/workstation name: [email or web address]
--- NOTE | 2018-05-26 13:04 | ER Document Report ---
ED General - General Chief Complaint: Testicular Swelling Stated Complaint: TESTICULAR PAIN, SWELLING Time Seen by Provider: 05/26/18 12:07 Mode of Arrival: Ambulatory Information source: Patient Notes: This is a 57-year-old man status post laparoscopic bilateral inguinal hernia repair (Dr. Nixon) 2 days ago who presents to the emergency room with dysuria. Patient initially said he had some testicle pain although he denies it at this time. He denies any fever, chills, nausea, vomiting. Patient denies any difficulty urinating. Just states it potter a little bit when he does urinate. TRAVEL OUTSIDE OF THE [place] IN LAST 30 DAYS: No - HPI Onset: Just prior to arrival Onset/Duration: Gradual Quality of pain: Dull Severity: Mild Pain Level: 1 Associated symptoms: denies: Chest pain, Fever, Shortness of breath Exacerbated by: Denies Relieved by: Denies Similar symptoms previously: No Recently seen / treated by doctor: Yes - Related Data Allergies/Adverse Reactions: No Known Allergies Allergy (Verified 05/15/18 10:12) Past Medical History - General Information source: Patient, [facility] Records - Social History Smoking Status: Never Smoker Chew tobacco use (# tins/day): No Frequency of alcohol use: None Drug Abuse: None Lives with: Family Family History: Arthritis, DM, Hyperlipidemia, Hypertension. denies: CAD, COPD , CVA, Malignancy, Thyroid Disfunction Patient has suicidal ideation: No Patient has homicidal ideation: No - Past Medical History Cardiac Medical History: Reports: Hx Hypercholesterolemia, Hx Hypertension Denies: Hx Coronary Artery Disease, Hx Heart Attack Pulmonary Medical History: Denies: Hx Asthma, Hx Bronchitis, Hx COPD, Hx Pneumonia Neurological Medical History: Denies: Hx Cerebrovascular Accident, Hx Seizures Endocrine Medical History: Reports: Hx Diabetes Mellitus Type 1, Hx Diabetes Mellitus Type 2 Renal/ Medical History: Reports: Hx Kidney Stones. Denies: Hx Peritoneal Dialysis Musculoskeletal Medical History: Denies Hx Arthritis Past Surgical History: Reports: Hx Kidney (Renal Surgery), Other - Lithotripsy for kidney stones - Immunizations Immunizations up to date: Yes Hx Diphtheria, Pertussis, Tetanus Vaccination: Yes Review of Systems - Review of Systems Constitutional: denies: Chills, Fever EENT: No symptoms reported Cardiovascular: No symptoms reported Respiratory: No symptoms reported Gastrointestinal: See HPI Genitourinary: See HPI Male Genitourinary: See HPI Musculoskeletal: No symptoms reported Skin: No symptoms reported Hematologic/Lymphatic: No symptoms reported Neurological/Psychological: No symptoms reported Physical Exam - Vital signs Vitals: Temp Pulse Resp BP Pulse Ox 98.5 F 86 18 132/74 H 98 05/26/18 11:59 05/26/18 11:59 05/26/18 11:59 05/26/18 11:59 05/26/18 11:59 Notes: Physical exam: GENERAL: She is alert and oriented x3, no acute distress HEAD: Atraumatic, normocephalic. EYES: Pupils equal round and reactive to light, extraocular movements intact, sclera anicteric, conjunctiva are normal. ENT: TMs normal, nares patent, oropharynx clear without exudates. Moist mucous membranes. NECK: Normal range of motion, supple without obvious mass or JVD. LUNGS: Breath sounds clear to auscultation bilaterally and equal. No wheezes rales or rhonchi. HEART: Regular rate and rhythm without murmurs, rubs or gallops. ABDOMEN: Soft, laparoscopic entry sites are intact and look good: No erythema, discharge, warmth. The abdomen is relatively nontender palpation. Normoactive bowel sounds. No guarding, no rebound. No masses appreciated. Testes: There is no testicular swelling. There is no testicular tenderness. There is no tenderness with palpation of the epididymides. Penile shaft is normal. EXTREMITIES: Normal range of motion, no pitting or edema. No clubbing or cyanosis. NEUROLOGICAL: Cranial nerves II through XII grossly intact. Normal speech, moving all extremities. PSYCH: Normal mood, normal affect. SKIN: Warm, Dry, normal turgor, no rashes or lesions noted. BedSide ultrasound shows a contracted bladder (i.e.: No retention). Course - Re-evaluation Re-evalutation: 05/26/18 19:34 Note: Ultrasound look good. Urine look good. Patient looks very comfortable. Plan will be for him to follow-up with primary care doctor surgeon. - Vital Signs Vital signs: Temp Pulse Resp BP Pulse Ox 98.8 F 89 18 123/75 96 05/26/18 16:40 05/26/18 16:40 05/26/18 16:40 05/26/18 16:40 05/26/18 16:40 - Laboratory Result Diagrams: 05/26/18 13:34 05/26/18 15:30 Laboratory results interpreted by me: 05/26/18 05/26/18 05/26/18 12:19 13:34 15:30 Hgb 13.3 L RDW 14.4 H Glucose 114 H Urine Blood SMALL H Urine Urobilinogen 2.0 H - Diagnostic Test Radiology reviewed: Image reviewed, Reports reviewed - Testicular ultrasound shows small bilateral hydroceles, otherwise no acute process. Discharge - Discharge Clinical Impression: Dysuria Condition: Stable Disposition: HOME, SELF-CARE Additional Instructions: As we discussed, the ultrasound of the testicles was normal. The blood tests were quite good. Your urine test showed no evidence of infection. We did send a urine culture. Follow-up with the surgeon as planned. Return to the emergency room for any fever, (greater than 100.5), worsening swelling or worsening pain. Follow-up with your primary care doctor as well. Referrals: SINA PETE MD [Primary Care Provider] - Follow up in 3-5 days
[2018-05-26 13:30] LABS: APPEARANCE,URINE CLEAR; BILIRUBIN,URINE NEGATIVE (NEGATIVE); COLOR,URINE YELLOW; GLUCOSE, URINE NEGATIVE (NEGATIVE); KETONES,URINE NEGATIVE (NEGATIVE); LEUKOCYTE ESTERASE,URINE NEGATIVE (NEGATIVE); NITRITE,URINE NEGATIVE (NEGATIVE); PROTEIN,URINE NEGATIVE (NEGATIVE)
[2018-05-26 13:50] LABS: ABSOLUTE BASOPHILS # (AUTO) 0.1 10^3/uL (0.0-0.2); ABSOLUTE EOSINOPHILS # (AUTO) 0.1 10^3/uL (0.0-0.6); ABSOLUTE LYMPHOCYTES (AUTO) 1.9 10^3/uL (0.5-4.7); ABSOLUTE MONOCYTES (AUTO) 0.8 10^3/uL (0.1-1.4); BASOPHILS % (AUTO) 0.7 % (0-2); EOSINOPHILS % (AUTO) 1.4 % (0-6); HEMATOCRIT 39.4 % (37.9-51.0); HEMOGLOBIN 13.3 g/dL (13.5-17.0); LYMPHOCYTES % (AUTO) 24.2 % (13-45); MEAN CORPUSCULAR HEMOGLOBIN 28.1 pg (27.0-33.4); MEAN CORPUSCULAR HGB CONC 33.6 g/dL (32.0-36.0); MEAN CORPUSCULAR VOLUME 84 fl (80-97); MONOCYTES % (AUTO) 10.6 % (3-13); PLATELET COUNT 229 10^3/uL (150-450); RED BLOOD COUNT 4.72 10^6/uL (4.35-5.55); RED CELL DISTRIBUTION WIDTH 14.4 % (11.5-14.0); SEGMENTED NEUTROPHILS % (AUTO) 63.1 % (42-78); TOTAL CELLS COUNTED % (AUTO) 100 %
[2018-05-26 16:03] LABS: ALANINE AMINOTRANSFERASE 35 U/L (21-72); ALBUMIN 4.2 g/dL (3.5-5.0); ALKALINE PHOSPHATASE 60 U/L (38-126); ANION GAP 9 (5-19); ASPARTATE AMINO TRANSFERASE 38 U/L (17-59); BILIRUBIN,DIRECT 0.3 mg/dL (0.0-0.4); BILIRUBIN,TOTAL 1.3 mg/dL (0.2-1.3); BLOOD UREA NITROGEN 16 mg/dL (7-20); CALCIUM 9.7 mg/dL (8.4-10.2); CARBON DIOXIDE 25 mmol/L (22-30); CHLORIDE 104 mmol/L (98-107); GLUCOSE 114 mg/dL (75-110); POTASSIUM 4.1 mmol/L (3.6-5.0); SODIUM 137.5 mmol/L (137-145); TOTAL PROTEIN 7.6 g/dL (6.3-8.2)
[2018-05-26 16:42] VITALS: BP 123/75
== END 2018-05-26 16:49 | disposition home or self-care (01) ==
LOC: ER 11:54
DX: R30.0 Dysuria (principal); N43.3 Hydrocele, unspecified; Z98.890 Other specified postprocedural states; I10 Essential (primary) hypertension; E11.9 Type 2 diabetes mellitus without complications; Z87.442 Personal history of urinary calculi
CPT/HCPCS: 36415; 76870; 80053; 81001; 85025; 93976; 99284

== ENCOUNTER 2018-07-20 09:46 | Emergency (ER) | payer BC ==
[2018-07-20] MEDS ORDERED: FENTANYL CITRATE INJ/PF 100 MCG/2 ML AMPUL IM ONE (10:04)
--- NOTE | 2018-07-20 10:06 | ER Document Report ---
ED Medical Screen (RME) - General Chief Complaint: Flank Pain Stated Complaint: LOWER BACK AND LEG PAIN Time Seen by Provider: 07/20/18 09:59 Primary Care Provider: SINA PETE MD [Primary Care Provider] - Follow up as needed Mode of Arrival: Ambulatory Information source: Patient Notes: 57-year-old's male presents emergency department with complaints of right-sided back pain that is been present for the last 2 days. He describes it as a sharp and stabbing sensation with radiation down his right lower extremity. Patient states that the pain is worse with movement. He states that it feels somewhat similar to his previous history of kidney stones. He states that with his previous stones it did not radiate down the back of his leg. This is different. He denies any testicular pain, penile discharge, dysuria, hematuria, fever, chills, nausea, vomiting, diarrhea, constipation. He denies any trauma or injury to his back. 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 I have greeted and performed a rapid initial assessment of this patient. A comprehensive ED assessment and evaluation of the patient, analysis of test results and completion of the medical decision making process will be conducted by additional ED providers. PHYSICAL EXAMINATION: GENERAL: Well-appearing, well-nourished and in no acute distress. HEAD: Atraumatic, normocephalic. EYES: Pupils equal round extraocular movements intact, conjunctiva are normal. ENT: Nares patent NECK: Normal range of motion LUNGS: No respiratory distress Musculoskeletal: Normal range of motion NEUROLOGICAL: Normal speech, normal gait. PSYCH: Normal mood, normal affect. SKIN: Warm, Dry, normal turgor, no rashes or lesions noted. TRAVEL OUTSIDE OF THE [place] IN LAST 30 DAYS: No - Related Data Allergies/Adverse Reactions: No Known Allergies Allergy (Verified 07/20/18 09:47) Past Medical History - Social History Chew tobacco use (# tins/day): No Frequency of alcohol use: None Drug Abuse: None - Past Medical History Cardiac Medical History: Reports: Hx Hypercholesterolemia, Hx Hypertension Denies: Hx Coronary Artery Disease, Hx Heart Attack Pulmonary Medical History: Denies: Hx Asthma, Hx Bronchitis, Hx COPD, Hx Pneumonia Neurological Medical History: Denies: Hx Cerebrovascular Accident, Hx Seizures Endocrine Medical History: Reports: Hx Diabetes Mellitus Type 1, Hx Diabetes Mellitus Type 2 Renal/ Medical History: Reports: Hx Kidney Stones. Denies: Hx Peritoneal Dialysis Musculoskeltal Medical History: Denies Hx Arthritis Past Surgical History: Reports: Hx Kidney (Renal Surgery), Other - Lithotripsy for kidney stones - Immunizations Immunizations up to date: Yes Hx Diphtheria, Pertussis, Tetanus Vaccination: Yes History of Influenza Vaccine for 03/2017 - 08/2017 Season: No Physical Exam - Vital signs Vitals: Temp Pulse Resp BP Pulse Ox 98.1 F 65 18 154/70 H 99 07/20/18 09:52 07/20/18 09:52 07/20/18 09:52 07/20/18 09:52 07/20/18 09:52 Course - Vital Signs Vital signs: Temp Pulse Resp BP Pulse Ox 98.1 F 65 18 154/70 H 99 07/20/18 09:52 07/20/18 09:52 07/20/18 09:52 07/20/18 09:52 07/20/18 09:52 Doctor's Discharge - Discharge Referrals: SINA PETE MD [Primary Care Provider] - Follow up as needed
[2018-07-20 10:56] LABS: ABSOLUTE EOSINOPHILS # (AUTO) 0.2 10^3/uL (0.0-0.6); ABSOLUTE LYMPHOCYTES (AUTO) 1.5 10^3/uL (0.5-4.7); ABSOLUTE MONOCYTES (AUTO) 0.5 10^3/uL (0.1-1.4); ABSOLUTE NEUT (AUTO) 3.2 10^3/uL (1.7-8.2); BASOPHILS % (AUTO) 0.7 % (0-2); EOSINOPHILS % (AUTO) 3.1 % (0-6); HEMOGLOBIN 14.3 g/dL (13.5-17.0); LYMPHOCYTES % (AUTO) 28.2 % (13-45); MEAN CORPUSCULAR HEMOGLOBIN 27.3 pg (27.0-33.4); MEAN CORPUSCULAR HGB CONC 32.5 g/dL (32.0-36.0); MEAN CORPUSCULAR VOLUME 84 fl (80-97); MONOCYTES % (AUTO) 9.7 % (3-13); PLATELET COUNT 219 10^3/uL (150-450); RED BLOOD COUNT 5.24 10^6/uL (4.35-5.55); RED CELL DISTRIBUTION WIDTH 15.7 % (11.5-14.0); SEGMENTED NEUTROPHILS % (AUTO) 58.3 % (42-78); TOTAL CELLS COUNTED % (AUTO) 100 %; WHITE BLOOD COUNT 5.4 10^3/uL (4.0-10.5)
[2018-07-20 11:02] LABS: APPEARANCE,URINE CLEAR; BILIRUBIN,URINE NEGATIVE (NEGATIVE); COLOR,URINE YELLOW; GLUCOSE, URINE NEGATIVE (NEGATIVE); KETONES,URINE NEGATIVE (NEGATIVE); LEUKOCYTE ESTERASE,URINE NEGATIVE (NEGATIVE); NITRITE,URINE NEGATIVE (NEGATIVE); PROTEIN,URINE NEGATIVE (NEGATIVE); URINE SPECIFIC GRAVITY 1.023
[2018-07-20 11:19] LABS: ALANINE AMINOTRANSFERASE 26 U/L (21-72); ALBUMIN 3.9 g/dL (3.5-5.0); ALKALINE PHOSPHATASE 71 U/L (38-126); ANION GAP 8 (5-19); ASPARTATE AMINO TRANSFERASE 25 U/L (17-59); BILIRUBIN,DIRECT 0.2 mg/dL (0.0-0.4); BILIRUBIN,TOTAL 1.8 mg/dL (0.2-1.3); BLOOD UREA NITROGEN 15 mg/dL (7-20); CALCIUM 9.3 mg/dL (8.4-10.2); CARBON DIOXIDE 27 mmol/L (22-30); CHLORIDE 109 mmol/L (98-107); GLUCOSE 101 mg/dL (75-110); POTASSIUM 4.3 mmol/L (3.6-5.0); SODIUM 144.3 mmol/L (137-145); TOTAL PROTEIN 6.8 g/dL (6.3-8.2)
--- NOTE | 2018-07-20 11:34 | ER Document Report ---
ED General - General Chief Complaint: Flank Pain Stated Complaint: LOWER BACK AND LEG PAIN Time Seen by Provider: 07/20/18 09:59 Primary Care Provider: SINA PETE MD [Primary Care Provider] - Follow up in 3-5 days Mode of Arrival: Ambulatory Notes: Patient is a 57-year-old male that presents to the emergency department for chief complaint of low back pain. Patient states that 2 3 days ago he started having pain in his low back that radiated to his right leg, and seem to get worse over this period of time. 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 He currently rates his pain as a 4 out of 10, he does report having history of kidney stones, but denies having any blood in his urine, dysuria or urinary frequency, he states this does not feel like a kidney stone is had in the past. Is never had pain radiating to his leg. He denies having any numbness, tingling or weakness, denies saddle anesthesias or paresthesias, denies urinary retention or incontinence or stool incontinence. Past Medical History: Diabetes mellitus, kidney stones Past Surgical History: Hernia repair Social History: Denies tobacco, alcohol or illicit drug use. Family History: Reviewed and noncontributory for presenting illness Allergies: Reviewed, see documented allergy list. REVIEW OF SYSTEMS: Other than noted above, the 12 point review of systems was reviewed with the patient and were negative, all pertinent findings are included in the HPI. PHYSICAL EXAMINATION: Vital signs reviewed, nursing noted reviewed. GENERAL: Well-appearing, well-nourished and in no acute distress. HEAD: Atraumatic, normocephalic. EYES: Eyes appear normal, extraocular movements intact, sclera anicteric, conjunctiva are normal. ENT: nares patent, oropharynx clear without exudates. Moist mucous membranes. NECK: Normal range of motion, supple without lymphadenopathy LUNGS: Breath sounds clear to auscultation bilaterally and equal. No wheezes rales or rhonchi. HEART: Regular rate and rhythm without murmurs ABDOMEN: Soft, nontender, normoactive bowel sounds. No rebound, guarding, or rigidity. No masses appreciated. Back: Positive straight leg raise on the right, positive for pain, but no paresthesias, mild tenderness to palpation to the paraspinal muscles of the lumbar spine on the right, no midline tenderness, to the lumbar or thoracic spine. EXTREMITIES: Nontender, good range of motion, no pitting or edema. Specifically +5/5 strength in dorsiflexion, plantarflexion and extension of the hallucis longus tendon bilaterally in the lower extremities. NEUROLOGICAL: No focal neurological deficits. Moves all extremities spontaneously Motor and sensory grossly intact on exam. Patellar and Achilles tendon reflexes are +2/4 bilaterally. PSYCH: Normal mood, normal affect. SKIN: Warm, Dry, normal turgor, no rashes or lesions noted on exposed skin TRAVEL OUTSIDE OF THE [place] IN LAST 30 DAYS: No - Related Data Allergies/Adverse Reactions: No Known Allergies Allergy (Verified 07/20/18 10:07) Past Medical History - General Information source: Patient - Social History Smoking Status: Never Smoker Chew tobacco use (# tins/day): No Frequency of alcohol use: None Drug Abuse: None Family History: Arthritis, DM, Hyperlipidemia, Hypertension. denies: CAD, COPD, CVA, Malignancy, Thyroid Disfunction Patient has suicidal ideation: No Patient has homicidal ideation: No - Past Medical History Cardiac Medical History: Reports: Hx Hypercholesterolemia, Hx Hypertension Denies: Hx Coronary Artery Disease, Hx Heart Attack Pulmonary Medical History: Denies: Hx Asthma, Hx Bronchitis, Hx COPD, Hx Pneumonia Neurological Medical History: Denies: Hx Cerebrovascular Accident, Hx Seizures Endocrine Medical History: Reports: Hx Diabetes Mellitus Type 1, Hx Diabetes Mellitus Type 2 Renal/ Medical History: Reports: Hx Kidney Stones. Denies: Hx Peritoneal Dialysis Musculoskeletal Medical History: Denies Hx Arthritis Past Surgical History: Reports: Hx Abdominal Surgery - hernia repair, Hx Kidney (Renal Surgery), Other - Lithotripsy for kidney stones - Immunizations Immunizations up to date: Yes Hx Diphtheria, Pertussis, Tetanus Vaccination: Yes Physical Exam - Vital signs Vitals: Temp Pulse Resp BP Pulse Ox 98.1 F 65 18 154/70 H 99 07/20/18 09:52 07/20/18 09:52 07/20/18 09:52 07/20/18 09:52 07/20/18 09:52 Course - Re-evaluation Re-evalutation: Patient seen and examined vital signs reviewed. Laboratory data and imaging were ordered as appropriate for the patient's presenting symptoms and complaint, with consideration of any critical or life threatening conditions that may be associated with their obtained history and exam as noted above. Patient was treated with IM fentanyl Patient blood work ordered by triage provider was reviewed and unremarkable, no hematuria in the urinalysis, patient symptoms are most consistent with sciatica, will treat him with prednisone, advised that this may increase his blood glucose, he was advised to monitor this, also patient was given muscle relaxer, and anti-inflammatory to take which she was agreeable. Results were discussed with the patient at this point, after careful consideration I feel that that patient can be discharged from the emergency department, the patient was educated treatments and reasons to return to the emergency department based on their presumed diagnosis as noted above, they were advised to followup with a primary care physician in 2-3 days. Patient was agreeable to plan of care. *Note is created using voice recognition software and may contain spelling, syntax or grammatical errors. Laboratory 07/20/18 07/20/18 07/20/18 10:10 10:25 10:25 WBC 5.4 RBC 5.24 Hgb 14.3 Hct 44.0 MCV 84 MCH 27.3 MCHC 32.5 RDW 15.7 H Plt Count 219 Seg Neutrophils % 58.3 Lymphocytes % 28.2 Monocytes % 9.7 Eosinophils % 3.1 Basophils % 0.7 Absolute Neutrophils 3.2 Absolute Lymphocytes 1.5 Absolute Monocytes 0.5 Absolute Eosinophils 0.2 Absolute Basophils 0.0 Sodium 144.3 Potassium 4.3 Chloride 109 H Carbon Dioxide 27 Anion Gap 8 BUN 15 Creatinine 1.02 Est GFR ( Amer) > 60 Est GFR (Non-Af Amer) > 60 Glucose 101 Calcium 9.3 Total Bilirubin 1.8 H Direct Bilirubin 0.2 Neonat Total Bilirubin Not Reportable Neonat Direct Bilirubin Not Reportable Neonat Indirect Bili Not Reportable AST 25 ALT 26 Alkaline Phosphatase 71 Total Protein 6.8 Albumin 3.9 Urine Color YELLOW Urine Appearance CLEAR Urine pH 5.0 Ur Specific [place] 1.023 Urine Protein NEGATIVE Urine Glucose (UA) NEGATIVE Urine Ketones NEGATIVE Urine Blood NEGATIVE Urine Nitrite NEGATIVE Urine Bilirubin NEGATIVE Urine Urobilinogen 2.0 H Ur Leukocyte Esterase NEGATIVE Urine WBC (Auto) 1 Urine RBC (Auto) 0 Urine Mucus (Auto) RARE Urine Ascorbic Acid NEGATIVE - Vital Signs Vital signs: Temp Pulse Resp BP Pulse Ox 97.7 F 62 18 154/83 H 97 07/20/18 11:43 07/20/18 11:43 07/20/18 11:43 07/20/18 11:43 07/20/18 11:43 - Laboratory Result Diagrams: 07/20/18 10:25 07/20/18 10:25 Laboratory results interpreted by me: 07/20/18 07/20/18 07/20/18 10:10 10:25 10:25 RDW 15.7 H Chloride 109 H Total Bilirubin 1.8 H Urine Urobilinogen 2.0 H Discharge - Discharge Clinical Impression: Sciatica Qualifiers: Laterality: right Qualified Code(s): M54.31 - Sciatica, right side Condition: Stable Disposition: HOME, SELF-CARE Instructions: Sciatica (OM) Prescriptions: Ibuprofen [Motrin 600 Mg Tablet] 600 mg PO TID PRN #15 tablet PRN Reason: back pain Methocarbamol [Robaxin 750 mg Tablet] 750 mg PO TID PRN #15 tablet PRN Reason: back pain RX: Prednisone [Deltasone] 40 mg PO DAILY #10 tablet Referrals: SINA PETE MD [Primary Care Provider] - Follow up in 3-5 days
[2018-07-20 11:44] VITALS: BP 154/83
== END 2018-07-20 11:45 | disposition home or self-care (01) ==
LOC: ER 09:46
DX: M54.31 Sciatica, right side (principal); R10.9 Unspecified abdominal pain; M54.5 Low back pain; M79.604 Pain in right leg; E11.9 Type 2 diabetes mellitus without complications; I10 Essential (primary) hypertension
CPT/HCPCS: 99283; 96372; 36415; 85025; 80053; 81001; J3010

== ENCOUNTER 2018-09-14 21:58 | Emergency (ER) | payer BC ==
[2018-09-14 22:10] VITALS: BP 158/76
== END 2018-09-14 23:10 | disposition left against medical advice (07) ==
LOC: ER 21:58
DX: Z53.21 Procedure and treatment not carried out due to patient leaving prior to being seen by health care provider (principal)

== ENCOUNTER 2019-01-02 15:10 | Emergency (ER) | payer BC ==
[2019-01-02] MEDS ORDERED: PROMETHAZINE HCL 25 MG TABLET PO ONE (15:51)
[2019-01-02] MEDS ORDERED: OXYCODONE-ACETAMINOPHEN 5-325 MG TABLET PO ONE (15:51)
--- NOTE | 2019-01-02 15:59 | ER Document Report ---
ED GI/ - General Chief Complaint: Testicular Pain Stated Complaint: TESTICULAR PAIN Time Seen by Provider: 01/02/19 15:44 Primary Care Provider: SINA PETE MD [Primary Care Provider] - Follow up as needed Notes: Patient complains of pain in his left testicle. He said he was wearing his PJs and was trying to do something and lost his balance and the PJs wrapped around his feet and caused him to sit down on his testicles. He is complaining of pain mainly in the left testicle. It does not appear to be significantly swollen. Has not had any blood in his urine or any difficulty urinating. No recent illness. No other injuries. No fevers. TRAVEL OUTSIDE OF THE [place] IN LAST 30 DAYS: No - Related Data Allergies/Adverse Reactions: No Known Allergies Allergy (Verified 09/14/18 21:59) Past Medical History - Social History Smoking Status: Unknown if Ever Smoked Family History: Reviewed & Not Pertinent, Arthritis, DM, Hyperlipidemia, Hypertension. denies: None, CAD, COPD, CVA, Malignancy, Thyroid Disfunction, Other - Past Medical History Cardiac Medical History: Reports: Hx Hypercholesterolemia, Hx Hypertension Denies: Hx Coronary Artery Disease, Hx Heart Attack Pulmonary Medical History: Denies: Hx Asthma, Hx Bronchitis, Hx COPD, Hx Pneumonia Neurological Medical History: Denies: Hx Cerebrovascular Accident, Hx Seizures Endocrine Medical History: Reports: Hx Diabetes Mellitus Type 1, Hx Diabetes Mellitus Type 2 Renal/ Medical History: Reports: Hx Kidney Stones. Denies: Hx Peritoneal D ialysis Musculoskeletal Medical History: Denies Hx Arthritis Past Surgical History: Reports: Hx Abdominal Surgery - hernia repair, Hx Kidney (Renal Surgery), Other - Lithotripsy for kidney stones - Immunizations Immunizations up to date: Yes Hx Diphtheria, Pertussis, Tetanus Vaccination: Yes Review of Systems - Review of Systems Notes: REVIEW OF SYSTEMS: CONSTITUTIONAL : Denies fever. EENT: Denies eye, ear, nose or mouth or throat pain or other symptoms. CARDIOVASCULAR: Denies chest pain. RESPIRATORY: Denies cough, chest congestion, or shortness of breath. GASTROINTESTINAL: Denies abdominal pain or nausea, vomiting, or diarrhea. GENITOURINARY: See HPI. MUSCULOSKELETAL: Denies back or neck pain. Denies joint pain or swelling. SKIN: Denies rash or skin lesions. NEUROLOGICAL: Denies LOC or altered mental status. Denies headache. Denies sensory loss or motor deficits. ALL OTHER SYSTEMS REVIEWED AND NEGATIVE. Physical Exam - Vital signs Vitals: Temp Pulse Resp BP Pulse Ox 98.6 F 66 21 H 136/68 H 98 01/02/19 15:31 01/02/19 15:31 01/02/19 15:31 01/02/19 15:31 01/02/19 15:31 Notes: PHYSICAL EXAMINATION: GENERAL: Well-appearing, in no acute distress. Ambulatory without difficulty. Moves on the stretcher without any significant apparent pain. HEAD: Atraumatic, normocephalic. EYES: Pupils equal round and reactive to light, extraocular movements intact. ENT: oropharynx clear without exudates. Moist mucous membranes. NECK: Normal range of motion, supple. LUNGS: Breath sounds clear and equal bilaterally. HEART: Regular rate and rhythm without murmurs. ABDOMEN: Soft, nontender. No guarding or rebound. No masses. Genitourinary: Patient's right testicle is normal. He does complain of some discomfort when I touch it, but it is not swollen or very tender anywhere. Left testicle may be very slightly enlarged, but it is not harder tense or signifi cant swelling. It is tender to touch. No blood from urethral meatus. Penile shaft intact. BACK: No tenderness throughout entire back. EXTREMITIES: Normal range of motion without pain. SKIN: Warm, dry, no rashes. Course - Vital Signs Vital signs: Temp Pulse Resp BP Pulse Ox 98.6 F 67 16 163/81 H 98 01/02/19 15:31 01/02/19 18:07 01/02/19 18:07 01/02/19 18:07 01/02/19 18:07 Discharge - Discharge Clinical Impression: Contusion of testicle Condition: Stable Disposition: HOME, SELF-CARE Additional Instructions: Testicular Pain Sometimes we can't prove the exact cause of testicle pain. Pain in the testicle can be caused by many different problems, including viral infections of the testicle, urinary tract infection, kidney stones, inflammation of the epididymis (the sac behind the testicle), hernia, dilated veins in the scrotum, or subtle injury. The most serious causes of testicular pain are tumor or twisting of the testicle. An ultrasound exam often shows what's wrong. When the initial testing doesn't show a cause for the pain, we usually refer to a urologist. Rest. Gentle warmth may help with symptoms. It's usually helpful to wear underwear that gives good support to the testicles ("briefs" instead of "boxers"). Call the doctor or return if there is sudden worsening of pain, fever, vomiting, testicle swelling, or discoloration of the scrotum. Contusion Your injury has resulted in a contusion -- a crushing of the deep tissues. No injury to important structures was detected during the physician's exam. Contusions vary in the amount of pain they cause, and in the length of time required for healing. Typically, the area will become bruised, and will remain painful to touch for two or three weeks. However, most patients are back to working and playing within a few days. After the initial period of rest and cold-packs, your symptoms (together with the doctor's recommendations) will determine how rapidly you can get back to full activity. Usually this means "do what feels okay, but don't do things that hurt." If re-examination was recommended, it's important to follow up as instructed. Call the doctor or return any time if pain increases, if swelling becomes severe, if you develop numbness or weakness in an injured extremity, or if any other alarming symptoms occur. Your ultrasound was normal. You have normal blood flow into your testicle. The injury apparently is just a bruise or contusion of the testicle. It should recover normally. FOLLOW-UP CARE: If you have been referred to a physician for follow-up care, call the physicians office for an appointment as you were instructed or within the next two days. If you experience worsening or a significant change in your symptoms, notify the physician immediately or return to the Emergency Department at any time for re-evaluation. Prescriptions: Oxycodone HCl/Acetaminophen [Percocet 5-325 mg Tablet] 1 - 2 tab PO Q6HP PRN #10 tablet PRN Reason: Forms: Return to Work Referrals: SINA PETE MD [Primary Care Provider] - Follow up as needed
[2019-01-02 16:45] LABS: APPEARANCE,URINE CLEAR; BILIRUBIN,URINE NEGATIVE (NEGATIVE); COLOR,URINE YELLOW; GLUCOSE, URINE NEGATIVE (NEGATIVE); KETONES,URINE NEGATIVE (NEGATIVE); LEUKOCYTE ESTERASE,URINE NEGATIVE (NEGATIVE); NITRITE,URINE NEGATIVE (NEGATIVE); PROTEIN,URINE NEGATIVE (NEGATIVE); URINE SPECIFIC GRAVITY 1.019; UROBILINOGEN,URINE NEGATIVE mg/dL (<2.0)
--- NOTE | 2019-01-02 16:56 | RADIOLOGY REPORT (SQ) ---
EXAM DESCRIPTION: U/S SCROTUM W/DOPPLER COMPLETED DATE/TIME: 01/02/2019 4:45 pm REASON FOR STUDY: Sent on the left testicle, pain and swelling COMPARISON: 05/26/2018 TECHNIQUE: Static and realtime estrada scale imaging of the scrotum and testes. Selected color Doppler and spectral images recorded to document blood flow. LIMITATIONS: None. FINDINGS: RIGHT: TESTICLE: Normal size the, 3.7 x 2.7 x 2.5 cm. Normal echotexture. Normal blood flow. No mass. EPIDIDYMIS: Normal, 16 mm. HYDROCELE OR VARICOCELE: No. HERNIA OR EXTRA-TESTICULAR MASS: No. OTHER: No other significant finding. LEFT: TESTICLE: Normal size common 3.4 x 3 x 2 cm. Normal echotexture. Normal blood flow. No mass. EPIDIDYMIS: Normal, 11 mm. HYDROCELE OR VARICOCELE: No. HERNIA OR EXTRA-TESTICULAR MASS: No. OTHER: No other significant finding. IMPRESSION: NORMAL SCROTAL ULTRASOUND. NO EVIDENCE OF TESTICULAR MASS OR TORSION. TECHNICAL DOCUMENTATION: JOB ID: [id number] All Rights Reserved Reading location - IP/workstation name: [email or web address]
[2019-01-02 18:07] VITALS: BP 163/81
== END 2019-01-02 18:13 | disposition home or self-care (01) ==
LOC: ER 15:10
DX: S30.22XA Contusion of scrotum and testes, initial encounter (principal); X58.XXXA Exposure to other specified factors, initial encounter; E78.00 Pure hypercholesterolemia, unspecified; I10 Essential (primary) hypertension; E11.9 Type 2 diabetes mellitus without complications; Z87.442 Personal history of urinary calculi
CPT/HCPCS: 76870; 81001; 93976; 99284

== ENCOUNTER 2019-02-24 14:11 | Emergency (ER) | payer BC ==
--- NOTE | 2019-02-24 14:41 | ER Document Report ---
ED Medical Screen (RME) - General Chief Complaint: Testicular Problem Stated Complaint: TESTICULAR PAIN/SWELLING Time Seen by Provider: 02/24/19 14:28 Primary Care Provider: SINA PETE MD [Primary Care Provider] - Follow up as needed Mode of Arrival: Ambulatory Information source: Patient Notes: Patient is a 58-year-old male presenting with sudden onset left groin pain and left testicular swelling that started at 1245 while he was at work. He denies any other symptoms. Exam: Patient alert, answering all questions appropriately. Writhing around in pain in the chair in triage. Testicular exam deferred until patient is in a more private room. I have greeted and performed a rapid initial assessment of this patient. A comprehensive ED assessment and evaluation of the patient, analysis of test results and completion of the medical decision making process will be conducted by additional ED providers. I have specifically instructed the patient or family members with the patient to immediately return to any nursing staff should anything change in the patient's condition or with their chief complaint. This medical record was dictated with voice recognizing software. There may be grammatical, syntax errors that are unintended. TRAVEL OUTSIDE OF THE [place] IN LAST 30 DAYS: No - Related Data Allergies/Adverse Reactions: No Known Allergies Allergy (Verified 09/14/18 21:59) Past Medical History - Social History Chew tobacco use (# tins/day): No Frequency of alcohol use: None Drug Abuse: None - Past Medical History Cardiac Medical History: Reports: Hx Hypercholesterolemia, Hx Hypertension Denies: Hx Coronary Artery Disease, Hx Heart Attack Pulmonary Medical History: Denies: Hx Asthma, Hx Bronchitis, Hx COPD, Hx Pneumonia Neurological Medical History: Denies: Hx Cerebrovascular Accident, Hx Seizures Endocrine Medical History: Reports: Hx Diabetes Mellitus Type 1, Hx Diabetes Mellitus Type 2 Renal/ Medical History: Reports: Hx Kidney Stones. Denies: Hx Peritoneal Dialysis Musculoskeltal Medical History: Denies Hx Arthritis Past Surgical History: Reports: Hx Abdominal Surgery - hernia repair, Hx Kidney (Renal Surgery), Other - Lithotripsy for kidney stones - Immunizations Immunizations up to date: Yes Hx Diphtheria, Pertussis, Tetanus Vaccination: Yes History of Influenza Vaccine for 03/2017 - 08/2017 Season: No Physical Exam - Vital signs Vitals: Temp Pulse Resp BP Pulse Ox 97.5 F 85 18 147/88 H 97 02/24/19 14:15 02/24/19 14:15 02/24/19 14:15 02/24/19 14:15 02/24/19 14:15 Course - Vital Signs Vital signs: Temp Pulse Resp BP Pulse Ox 97.5 F 85 18 147/88 H 97 02/24/19 14:15 02/24/19 14:15 02/24/19 14:15 02/24/19 14:15 02/24/19 14:15 Doctor's Discharge - Discharge Referrals: SINA PETE MD [Primary Care Provider] - Follow up as needed
[2019-02-24 15:09] LABS: APPEARANCE,URINE CLEAR; COLOR,URINE STRAW; GLUCOSE, URINE 150 mg/dL (NEGATIVE)
[2019-02-24 15:10] LABS: BILIRUBIN,URINE NEGATIVE (NEGATIVE); KETONES,URINE NEGATIVE (NEGATIVE); LEUKOCYTE ESTERASE,URINE NEGATIVE (NEGATIVE); NITRITE,URINE NEGATIVE (NEGATIVE); PROTEIN,URINE 30 mg/dL (NEGATIVE); URINE SPECIFIC GRAVITY 1.025; UROBILINOGEN,URINE NEGATIVE mg/dL (<2.0)
[2019-02-24] MEDS ORDERED: MORPHINE SULFATE 10 MG/ML INJ IV ONE (15:32)
--- NOTE | 2019-02-24 16:11 | ER Document Report ---
ED General - General Chief Complaint: Testicular Problem Stated Complaint: TESTICULAR PAIN/SWELLING Time Seen by Provider: 02/24/19 14:28 Primary Care Provider: SINA PETE MD [Primary Care Provider] - Follow up as needed Mode of Arrival: Ambulatory TRAVEL OUTSIDE OF THE [place] IN LAST 30 DAYS: No - HPI Notes: Is with sudden onset of left testicular pain that began approximately 1245 while at work. He states he lifted several medium to heavy bags approximately 1230. Denies any penile discharge or concern for sexually transmitted disease. No his tory of hernias. Does not radiate into his abdomen or pelvis it is located to his left testicle only - Related Data Allergies/Adverse Reactions: No Known Allergies Allergy (Verified 09/14/18 21:59) Past Medical History - General Information source: Patient - Social History Smoking Status: Never Smoker Chew tobacco use (# tins/day): No Frequency of alcohol use: None Drug Abuse: None Family History: Reviewed & Not Pertinent, Arthritis, DM, Hyperlipidemia, Hypertension. denies: None, CAD, COPD, CVA, Malignancy, Thyroid Disfunction, Other Patient has suicidal ideation: No Patient has homicidal ideation: No - Past Medical History Cardiac Medical History: Reports: Hx Hypercholesterolemia, Hx Hypertension Denies: Hx Coronary Artery Disease, Hx Heart Attack Pulmonary Medical History: Denies: Hx Asthma, Hx Bronchitis, Hx COPD, Hx Pneumonia Neurological Medical History: Denies: Hx Cerebrovascular Accident, Hx Seizures Endocrine Medical History: Reports: Hx Diabetes Mellitus Type 1, Hx Diabetes Mellitus Type 2 Renal/ Medical History: Reports: Hx Kidney Stones. Denies: Hx Peritoneal Dialysis Musculoskeletal Medical History: Denies Hx Arthritis Past Surgical History: Reports: Hx Abdominal Surgery - hernia repair, Hx Kidney (Renal Surgery), Other - Lithotripsy for kidney stones - Immunizations Immunizations up to date: Yes Hx Diphtheria, Pertussis, Tetanus Vaccination: Yes Review of Systems - Review of Systems Constitutional: No symptoms reported EENT: No symptoms reported Cardiovascular: No symptoms reported Respiratory: No symptoms reported Gastrointestinal: No symptoms reported Genitourinary: See HPI Male Genitourinary: No symptoms reported Musculoskeletal: No symptoms reported Skin: No symptoms reported Hematologic/Lymphatic: No symptoms reported Neurological/Psychological: No symptoms reported Physical Exam - Vital signs Vitals: Temp Pulse Resp BP Pulse Ox 97.5 F 85 18 147/88 H 97 02/24/19 14:15 09/16/19 14:15 02/24/19 14:15 02/24/19 14:15 02/24/19 14:15 - General General appearance: Appears well - HEENT Head: Normocephalic, Atraumatic Eyes: Normal Conjunctiva: Normal Extraocular movements intact: Yes Pupils: PERRL - Abdominal Inspection: Normal Distension: No distension Bowel sounds: Normal Tenderness: Nontender Organomegaly: Other - No inguinal or abdominal hernia palpated - Genitourinary Scrotum: Other - No erythema or warmth of testicle. Pain with palpation and lifting of left testicle. No intestinal hernia palpated on exam with patient coughing and placing a finger in the inguinal canal Course - Re-evaluation Re-evalutation: 02/24/19 19:05 Normal ultrasound of testicles. Patient's symptoms improved in the emergency department. There are no inguinal direct or indirect hernias palpated on exam. Urinalysis shows no signs of infection. This did occur when he was lifting a somewhat heavy object earlier today. Upon reevaluation he states that the pain is also somewhat lateral to his testicle which could indicate inguinal strain. Will provide anti-inflammatories to treat his symptoms with strict return precautions and medical reevaluation in the next day or 2 if symptoms are not improving or worsening. - Vital Signs Vital signs: Temp Pulse Resp BP Pulse Ox 97.5 F 85 18 147/88 H 97 02/24/19 14:15 02/24/19 14:15 02/24/19 14:15 02/24/19 14:15 02/24/19 14:15 - Laboratory Laboratory results interpreted by me: 02/24/19 14:20 Urine Protein 30 H Urine Glucose (UA) 150 H Discharge - Discharge Clinical Impression: Left testicular pain, Left inguinal pain Condition: Good Disposition: HOME, SELF-CARE Additional Instructions: Ultrasound of your testicles today showed no concerning findings. Exam shows no signs of a hernia. If your symptoms are worsening or not improving please seek medical reevaluation within the next 24 to 48 hours. Prescriptions: Naproxen 500 mg PO BID PRN #10 tablet PRN Reason: Referrals: SINA PETE MD [Primary Care Provider] - Follow up as needed
[2019-02-24 16:35] LABS: CHLAM PCR NOT DETECTED (NOT DETECT)
--- NOTE | 2019-02-24 18:32 | RADIOLOGY REPORT (SQ) ---
EXAM DESCRIPTION: U/S SCROTUM W/DOPPLER COMPLETED DATE/TIME: 02/24/2019 6:13 pm REASON FOR STUDY: L testicular pain COMPARISON: 01/02/2019 TECHNIQUE: Static and realtime estrada scale imaging of the scrotum and testes. Selected color Doppler and spectral images recorded to document blood flow. LIMITATIONS: None. FINDINGS: RIGHT: TESTICLE: Normal size, 3.3 x 2.8 x 2.5 cm. Normal echotexture. Normal blood flow. No mass. EPIDIDYMIS: Normal, 14 mm. HYDROCELE OR VARICOCELE: No. HERNIA OR EXTRA-TESTICULAR MASS: No. OTHER: No other significant finding. LEFT: TESTICLE: Normal size, 3.5 x 3.2 x 2.5 cm. Normal echotexture. Normal blood flow. No mass. EPIDIDYMIS: Normal, 13 mm. HYDROCELE OR VARICOCELE: No. HERNIA OR EXTRA-TESTICULAR MASS: No. OTHER: Scanning in each groin shows no abnormality. IMPRESSION: NORMAL SCROTAL ULTRASOUND. NO EVIDENCE OF TESTICULAR MASS OR TORSION. TECHNICAL DOCUMENTATION: JOB ID: [id number]- All Rights Reserved Reading location - IP/workstation name: [email or web address]
[2019-02-24] MEDS ORDERED: KETOROLAC TROMETHAMINE 60 MG/2 ML SDV IM ONE (18:51)
[2019-02-24 20:01] VITALS: BP 173/79
== END 2019-02-24 19:54 | disposition home or self-care (01) ==
LOC: ER 14:11
DX: N50.812 Left testicular pain (principal); R10.32 Left lower quadrant pain; N50.89 Other specified disorders of the male genital organs; E78.00 Pure hypercholesterolemia, unspecified; I10 Essential (primary) hypertension; E11.9 Type 2 diabetes mellitus without complications; Z87.442 Personal history of urinary calculi
CPT/HCPCS: 99284; 96372; 96374; 81001; 87491; 87591; 76870; 93976; J1885; J2270

== ENCOUNTER 2019-05-05 16:16 | Emergency (ER) | payer BC ==
--- NOTE | 2019-05-05 16:41 | ER Document Report ---
ED Medical Screen (RME) - General Chief Complaint: Abdominal Pain Stated Complaint: ABDOMINAL PAIN Time Seen by Provider: 05/05/19 16:38 Primary Care Provider: SINA PETE MD [Primary Care Provider] - Follow up as needed Mode of Arrival: Ambulatory Information source: Patient Notes: 58-year-old male presents to ED for complaint of lower abdominal pain cramping. He states he has had about 8 diarrheal stools and is vomited since noon today. He states he had some grits and sausage this morning that his cooked other than that he has not had anything different. He is alert oriented respirations regular and unlabored he is afebrile at this time. He states he just went to the bathroom just a few minutes ago, he states his last vomit was about an hour ago. States his only medical history is diabetes type 2. He states he has not checked his sugar today. I have greeted and performed a rapid initial assessment of this patient. A comprehensive ED assessment and evaluation of the patient, analysis of test results and completion of medical decision making process will be conducted by an additional ED providers. TRAVEL OUTSIDE OF THE [place] IN LAST 30 DAYS: No - Related Data Allergies/Adverse Reactions: No Known Allergies Allergy (Verified 09/14/18 21:59) Past Medical History - Past Medical History Cardiac Medical History: Reports: Hx Hypercholesterolemia, Hx Hypertension Denies: Hx Coronary Artery Disease, Hx Heart Attack Pulmonary Medical History: Denies: Hx Asthma, Hx Bronchitis, Hx COPD, Hx Pneumonia Neurological Medical History: Denies: Hx Cerebrovascular Accident, Hx Seizures Endocrine Medical History: Reports: Hx Diabetes Mellitus Type 1, Hx Diabetes Mellitus Type 2 Renal/ Medical History: Reports: Hx Kidney Stones. Denies: Hx Peritoneal Dialysis Musculoskeltal Medical History: Denies Hx Arthritis Past Surgical History: Reports: Hx Abdominal Surgery - hernia repair, Hx Kidney (Renal Surgery), Other - Lithotripsy for kidney stones - Immunizations Immunizations up to date: Yes Hx Diphtheria, Pertussis, Tetanus Vaccination: Yes Physical Exam - Vital signs Vitals: Temp Pulse Resp BP Pulse Ox 98.1 F 74 18 142/71 H 98 05/05/19 16:26 05/05/19 16:26 05/05/19 16:26 05/05/19 16:26 05/05/19 16:26 Course - Vital Signs Vital signs: Temp Pulse Resp BP Pulse Ox 98.1 F 74 18 142/71 H 98 05/05/19 16:26 05/05/19 16:26 05/05/19 16:26 05/05/19 16:26 05/05/19 16:26 Doctor's Discharge - Discharge Referrals: SINA PETE MD [Primary Care Provider] - Follow up as needed
[2019-05-05] MEDS ORDERED: ONDANSETRON 4 MG TAB.RAPDIS PO ONE (16:43)
[2019-05-05] MEDS ORDERED: NORMAL SALINE 1000 ML 1,000 ML IV ONE (16:44)
[2019-05-05 17:19] LABS: ABSOLUTE BASOPHILS # (AUTO) 0.1 10^3/uL (0.0-0.2); ABSOLUTE EOSINOPHILS # (AUTO) 0.1 10^3/uL (0.0-0.6); ABSOLUTE LYMPHOCYTES (AUTO) 1.8 10^3/uL (0.5-4.7); ABSOLUTE MONOCYTES (AUTO) 0.5 10^3/uL (0.1-1.4); ABSOLUTE NEUT (AUTO) 4.1 10^3/uL (1.7-8.2); BASOPHILS % (AUTO) 0.9 % (0-2); EOSINOPHILS % (AUTO) 2.2 % (0-6); HEMATOCRIT 44.2 % (37.9-51.0); HEMOGLOBIN 14.6 g/dL (13.5-17.0); LYMPHOCYTES % (AUTO) 27.4 % (13-45); MEAN CORPUSCULAR HEMOGLOBIN 27.6 pg (27.0-33.4); MEAN CORPUSCULAR HGB CONC 32.9 g/dL (32.0-36.0); MEAN CORPUSCULAR VOLUME 84 fl (80-97); MONOCYTES % (AUTO) 7.5 % (3-13); PLATELET COUNT 207 10^3/uL (150-450); RED BLOOD COUNT 5.28 10^6/uL (4.35-5.55); RED CELL DISTRIBUTION WIDTH 14.8 % (11.5-14.0); TOTAL CELLS COUNTED % (AUTO) 100 %; WHITE BLOOD COUNT 6.6 10^3/uL (4.0-10.5)
[2019-05-05 17:24] LABS: APPEARANCE,URINE CLEAR; BILIRUBIN,URINE NEGATIVE (NEGATIVE); COLOR,URINE YELLOW; GLUCOSE, URINE NEGATIVE (NEGATIVE); KETONES,URINE NEGATIVE (NEGATIVE); PROTEIN,URINE NEGATIVE (NEGATIVE); URINE SPECIFIC GRAVITY 1.021; UROBILINOGEN,URINE NEGATIVE mg/dL (<2.0)
[2019-05-05 17:41] LABS: ALBUMIN 3.9 g/dL (3.5-5.0); ALKALINE PHOSPHATASE 80 U/L (38-126); ANION GAP 9 (5-19); ASPARTATE AMINO TRANSFERASE 25 U/L (17-59); BILIRUBIN,DIRECT 0.1 mg/dL (0.0-0.4); BLOOD UREA NITROGEN 11 mg/dL (7-20); CALCIUM 9.9 mg/dL (8.4-10.2); CARBON DIOXIDE 26 mmol/L (22-30); CHLORIDE 107 mmol/L (98-107); GLUCOSE 182 mg/dL (75-110); POTASSIUM 4.3 mmol/L (3.6-5.0); TOTAL PROTEIN 6.8 g/dL (6.3-8.2)
[2019-05-05] MEDS ORDERED: LOPERAMIDE HCL 2 MG CAPSULE PO ONE (19:08)
[2019-05-05] MEDS ORDERED: FAMOTIDINE INJ/PF 20 MG/2 ML SDV IV ONE (19:08)
[2019-05-05] MEDS ORDERED: ONDANSETRON ODT 4 MG TAB (6 TAB/ER DISP) PO PRN (19:13)
--- NOTE | 2019-05-05 19:14 | ER Document Report ---
ED General - General Chief Complaint: Nausea/Vomiting/Diarrhea Stated Complaint: ABDOMINAL PAIN Time Seen by Provider: 05/05/19 16:38 Primary Care Provider: SINA PETE MD [Primary Care Provider] - Follow up as needed Mode of Arrival: Ambulatory Information source: Patient, [facility] Records Notes: 58-year-old male with hypertension, hyperlipidemia, type 2 diabetes presents with nausea, vomiting and diarrhea that started 7 hours prior to arrival. Patient has also had generalized abdominal cramping, no focal tenderness. He denies sick contacts, recent antibiotic use, recent travel. Patient denies any black or bloody stools, fever, chills, dysuria, hematuria, chest pain, shortness of breath. He has been compliant with his metformin. TRAVEL OUTSIDE OF THE [place] IN LAST 30 DAYS: No - HPI Onset: This morning Onset/Duration: Sudden, Persistent Quality of pain: Cramping Severity: Mild Associated symptoms: Diarrhea, Nausea, Vomiting Exacerbated by: Denies Relieved by: Denies Similar symptoms previously: No Recently seen / treated by doctor: No - Related Data Allergies/Adverse Reactions: No Known Allergies Allergy (Verified 09/14/18 21:59) Home Medications: Metformin Past Medical History - General Information source: Patient - Social History Smoking Status: Never Smoker Frequency of alcohol use: None Drug Abuse: None Lives with: Spouse/Significant other Family History: Reviewed & Not Pertinent, Arthritis, DM, Hyperlipidemia, Hypertension. denies: None, CAD, COPD, CVA, Malignancy, Thyroid Disfunction, Other Patient has suicidal ideation: No Patient has homicidal ideation: No - Past Medical History Cardiac Medical History: Reports: Hx Hypercholesterolemia, Hx Hypertension Denies: Hx Coronary Artery Disease, Hx Heart Attack Pulmonary Medical History: Denies: Hx Asthma, Hx Bronchitis, Hx COPD, Hx Pneumonia Neurological Medical History: Denies: Hx Cerebrovascular Accident, Hx Seizures Endocrine Medical History: Reports: Hx Diabetes Mellitus Type 1, Hx Diabetes Mellitus Type 2 Renal/ Medical History: Reports: Hx Kidney Stones. Denies: Hx Peritoneal Dialysis Musculoskeletal Medical History: Denies Hx Arthritis Past Surgical History: Reports: Hx Abdominal Surgery - hernia repair, Hx Kidney (Renal Surgery), Other - Lithotripsy for kidney stones - Immunizations Immunizations up to date: Yes Hx Diphtheria, Pertussis, Tetanus Vaccination: Yes Review of Systems - Review of Systems Notes: REVIEW OF SYSTEMS: CONSTITUTIONAL : Denies fever, chills, or sweats. Denies recent illness. Denies weight loss, recent hospitalizations. EENT: Denies visual changes, eye pain. Denies sore throat, oral lesions, difficulty swallowing. CARDIOVASCULAR: Denies chest pain. Denies palpitations. Denies lower extremity edema. RESPIRATORY: Denies cough. Denies shortness of breath, wheezing. GASTROINTESTINAL: Denies abdominal pain or distention. + nausea, vomiting, or diarrhea. Denies blood in vomitus, stools, or per rectum. Denies black, tarry stools. Denies constipation. GENITOURINARY: Denies difficulty urinating, painful urination, frequency, blood in urine, testicular pain or penile discharge. MUSCULOSKELETAL: Denies back or neck pain or stiffness. Denies joint pain or swelling. SKIN: Denies rash, lesions or sores. HEMATOLOGIC : Denies easy bruising or bleeding. LYMPHATIC: Denies swollen glands. NEUROLOGICAL: Denies confusion or altered mental status. Denies loss of consciousness. Denies dizziness or lightheadedness. Denies headache. Denies weakness or paralysis. Denies problems difficulty with ambulation, slurred speech. Denies sensory loss, numbness, or tingling. Denies seizures. PSYCHIATRIC: Denies anxiety or stress. Denies depression, suicidal ideation, or Physical Exam - Vital signs Vitals: Temp Pulse Resp BP Pulse Ox 98.1 F 74 18 142/71 H 98 05/05/19 16:26 05/05/19 16:26 05/05/19 16:26 05/05/19 16:26 05/05/19 16:26 - Notes Notes: PHYSICAL EXAMINATION: GENERAL: Well-appearing, well-nourished and in no acute distress. HEAD: Atraumatic, normocephalic. EYES: Pupils equal round and reactive to light, extraocular movements intact, sclera anicteric, conjunctiva are normal. ENT: Nares patent, oropharynx clear without exudates. Moist mucous membranes. NECK: Normal range of motion, supple without lymphadenopathy LUNGS: Breath sounds clear to auscultation bilaterally and equal. No wheezes rales or rhonchi. HEART: Regular rate and rhythm without murmurs ABDOMEN: Soft, nontender, nondistended abdomen. No guarding, no rebound. No masses appreciated. Musculoskeletal: Normal range of motion, no pitting or edema. No cyanosis. NEUROLOGICAL: Cranial nerves grossly intact. Normal speech, normal gait. Normal sensory, motor exams PSYCH: Normal mood, normal affect. SKIN: Warm, Dry, normal turgor, no rashes or lesions noted. Course - Re-evaluation Re-evalutation: Laboratory 05/05/19 05/05/19 05/05/19 17:05 17:05 17:05 WBC 6.6 RBC 5.28 Hgb 14.6 Hct 44.2 MCV 84 MCH 27.6 MCHC 32.9 RDW 14.8 H Plt Count 207 Lymph % (Auto) 27.4 [place] % (Auto) 7.5 Eos % (Auto) 2.2 Baso % (Auto) 0.9 Absolute Neuts (auto) 4.1 Absolute Lymphs (auto) 1.8 Absolute Monos (auto) 0.5 Absolute Eos (auto) 0.1 Absolute Basos (auto) 0.1 Seg Neutrophils % 62.0 Sodium 142.1 Potassium 4.3 Chloride 107 Carbon Dioxide 26 Anion Gap 9 BUN 11 Creatinine 1.14 Est GFR ( Amer) > 60 Est GFR (MDRD) Non-Af > 60 Glucose 182 H Calcium 9.9 Total Bilirubin 1.0 Direct Bilirubin 0.1 Neonat Total Bilirubin Not Reportable Neonat Direct Bilirubin Not Reportable Neonat Indirect Bili Not Reportable AST 25 ALT 22 Alkaline Phosphatase 80 Total Protein 6.8 Albumin 3.9 Lipase 201.3 Urine Color YELLOW Urine Appearance CLEAR Urine pH 5.0 Ur Specific [place] 1.021 Urine Protein NEGATIVE Urine Glucose (UA) NEGATIVE Urine Ketones NEGATIVE Urine Blood NEGATIVE Urine Nitrite (Reflex) NEGATIVE Urine Bilirubin NEGATIVE Urine Urobilinogen NEGATIVE Leukocyte Esterase Rfl NEGATIVE Urine RBC (Auto) 0 Urine WBC (Reflex) < 1 Squamous Epi Cells Auto <1 Urine Mucus (Auto) RARE Urine Ascorbic Acid NEGATIVE Temp Pulse Resp BP Pulse Ox 98.1 F 74 18 142/71 H 98 05/05/19 16:26 05/05/19 16:26 05/05/19 16:26 05/05/19 16:26 05/05/19 16:26 05/05/19 19:11 Presentation of an overall well-appearing patient in no acute distress with complaints of nausea, vomiting, diarrhea. This is consistent with likely viral gastroenteritis. Patient has no abdominal tenderness on exam and specifically no tenderness in the RLQ, LLQ, RUQ. Overall well hydrated on exam. Able to tolerate oral intake here in the emergency department. Low clinical suspicion for any acute life-threatening etiology based on exam and history including acute cholecystitis, SBO, appendicitis, nephrolithiasis, or pylonephritis. CMP without evidence of acute hepatitis or significant dehydration. Will plan for discharge at this time with return precautions and followup recommendations. Patient was evaluated and treated as appropriate for the patient's presenting symptoms and complaint, with consideration of any critical or life threatening conditions that may be associated with their obtained history and exam as noted above. All results were discussed with patient and... Patient provided the opp ortunity to ask questions, and express concerns. Patient was educated on treatments based on their presumed diagnosis as noted above. At this time we will discharge the patient with return precautions and follow-up recommendations. Verbal discharge instructions given a the bedside. Medication warnings reviewed. Patient is in agreement with this plan and has verbalized understanding of return precautions. After careful consideration I feel that that patient can be safely discharged from the emergency department, they were advised to followup with a primary care physician in 2-3 days. Dictation on this chart was performed using voice recognition software and may result in unintended grammatical, spelling, syntax or errors. - Vital Signs Vital signs: Temp Pulse Resp BP Pulse Ox 98.1 F 61 18 162/93 H 98 05/05/19 19:50 05/05/19 19:50 05/05/19 16:26 05/05/19 19:50 05/05/19 19:50 - Laboratory Result Diagrams: 05/05/19 17:05 05/05/19 17:05 Laboratory results interpreted by me: 05/05/19 05/05/19 17:05 17:05 RDW 14.8 H Glucose 182 H Discharge - Discharge Clinical Impression: Nausea vomiting and diarrhea, Abdominal cramping Condition: Good Disposition: HOME, SELF-CARE Additional Instructions: Your symptoms are likely due to a viral illness and should resolve in the next several days. You can take [id number] loperamide also known as Imodium as needed for diarrhea per box instructions. Continue to stay hydrated with plenty of solution such as Gatorade or Pedialyte. You are being prescribed Zofran to take as needed for nausea and vomiting. Please return if you develop severe abdominal pain, pass out, become unable to tolerate any oral fluids for 12 more hours, or any other symptoms that are concerning to you. Prescriptions: Loperamide HCl [Loperamide] 2 mg PO ASDIR PRN #12 tablet PRN Reason: Diarrhea Famotidine [Pepcid 40 mg Tablet] 40 mg PO DAILY 10 Days #10 tablet Ondansetron [Zofran Odt 4 mg Tablet] 1 - 2 tab PO Q4H PRN #15 tab.rapdis PRN Reason: For Nausea/Vomiting Forms: Return to Work Referrals: SINA PETE MD [Primary Care Provider] - Follow up as needed
[2019-05-05 19:53] VITALS: BP 162/93
== END 2019-05-05 19:53 | disposition home or self-care (01) ==
LOC: ER 16:16
DX: R11.2 Nausea with vomiting, unspecified (principal); R19.7 Diarrhea, unspecified; R10.9 Unspecified abdominal pain; I10 Essential (primary) hypertension; E11.9 Type 2 diabetes mellitus without complications; Z79.84 Long term (current) use of oral hypoglycemic drugs
CPT/HCPCS: 99284; 96361; 96374; 36415; 82962; 83690; 85025; 80053; 81001; S0119; J7030; S0028

== ENCOUNTER 2019-08-08 14:20 | Emergency (ER) | payer BC ==
[2019-08-08] MEDS ORDERED: IBUPROFEN 800 MG TABLET PO ONE (14:41)
--- NOTE | 2019-08-08 14:41 | ER Document Report ---
ED Medical Screen (RME) - General Chief Complaint: Groin Pain Stated Complaint: GROIN PAIN Time Seen by Provider: 08/08/19 14:39 Primary Care Provider: SINA PETE MD [Primary Care Provider] - Follow up as needed TRAVEL OUTSIDE OF THE [place] IN LAST 30 DAYS: No - HPI Notes: 08/08/19 14:40 Patient is a 58-year-old male who had hernia surgery about a year and a half ago presents complaining of left groin pain status post injury. Patient states that he was lifting up a box and the box hit him in the left scrotal/inguinal area and he has had pain since then. No fever. I have treated and performed a rapid initial assessment of this patient. A comprehensive ED assessment and evaluation of the patient, analysis of test results and completion of medical decision making process will be conducted by additional ED providers. PHYSICAL EXAMINATION: GENERAL: Well-appearing, well-nourished and in no acute distress. A&Ox4. Answers questions appropriately. : Brief exam does not show transverse lie. Cremasteric reflex intact. No obvious hernia. There is mild tenderness over the left scrotal contents and left inguinal area. - Related Data Allergies/Adverse Reactions: No Known Allergies Allergy (Verified 09/14/18 21:59) Past Medical History - Past Medical History Cardiac Medical History: Reports: Hx Hypercholesterolemia, Hx Hypertension Denies: Hx Coronary Artery Disease, Hx Heart Attack Pulmonary Medical History: Denies: Hx Asthma, Hx Bronchitis, Hx COPD, Hx Pneumonia Neurological Medical History: Denies: Hx Cerebrovascular Accident, Hx Seizures Endocrine Medical History: Reports: Hx Diabetes Mellitus Type 1, Hx Diabetes Mellitus Type 2 Renal/ Medical History: Reports: Hx Kidney Stones. Denies: Hx Peritoneal Dialysis Musculoskeltal Medical History: Denies Hx Arthritis Past Surgical History: Reports: Hx Abdominal Surgery - hernia repair, Hx Kidney (Renal Surgery), Other - Lithotripsy for kidney stones - Immunizations Immunizations up to date: Yes Hx Diphtheria, Pertussis, Tetanus Vaccination: Yes Physical Exam - Vital signs Vitals: Temp Pulse Resp BP Pulse Ox 98 F 76 18 163/66 H 96 08/08/19 14:29 08/08/19 14:29 08/08/19 14:29 08/08/19 14:29 08/08/19 14:29 Course - Vital Signs Vital signs: Temp Pulse Resp BP Pulse Ox 98 F 76 18 163/66 H 96 08/08/19 14:29 08/08/19 14:29 08/08/19 14:29 08/08/19 14:29 08/08/19 14:29 Doctor's Discharge - Discharge Referrals: SINA PETE MD [Primary Care Provider] - Follow up as needed
[2019-08-08 16:15] LABS: APPEARANCE,URINE CLEAR; BILIRUBIN,URINE NEGATIVE (NEGATIVE); COLOR,URINE STRAW; GLUCOSE, URINE >=500 mg/dL (NEGATIVE); KETONES,URINE NEGATIVE (NEGATIVE); PROTEIN,URINE NEGATIVE (NEGATIVE); URINE SPECIFIC GRAVITY 1.031; UROBILINOGEN,URINE NEGATIVE mg/dL (<2.0)
--- NOTE | 2019-08-08 16:21 | RADIOLOGY REPORT (SQ) ---
EXAM DESCRIPTION: U/S SCROTUM W/DOPPLER COMPLETED DATE/TIME: 08/08/2019 3:53 pm REASON FOR STUDY: left inguinal/scrotal pain COMPARISON: 02/24/2019 TECHNIQUE: Static and realtime estrada scale imaging of the scrotum and testes. Selected color Doppler and spectral images recorded to document blood flow. LIMITATIONS: None. FINDINGS: RIGHT: TESTICLE: Normal size. Normal echotexture. Normal blood flow. No mass. EPIDIDYMIS: Normal. HYDROCELE OR VARICOCELE: There is a small hydrocele. HERNIA OR EXTRA-TESTICULAR MASS: No. OTHER: No other significant finding. LEFT: TESTICLE: Normal size. Normal echotexture. Normal blood flow. No mass. EPIDIDYMIS: Normal. HYDROCELE OR VARICOCELE: No. HERNIA OR EXTRA-TESTICULAR MASS: No. OTHER: Single normal appearing lymph node in the left groin. This measured 1.4 x 1.0 cm. IMPRESSION: NORMAL SCROTAL ULTRASOUND. NO EVIDENCE OF TESTICULAR MASS OR TORSION. TECHNICAL DOCUMENTATION: JOB ID: [id number] [employer]- All Rights Reserved Reading location - IP/workstation name: [email or web address]
[2019-08-08] MEDS ORDERED: NORMAL SALINE 1000 ML 1,000 ML IV ONE (17:09)
[2019-08-08] MEDS ORDERED: ACETAMINOPHEN 325 MG TABLET PO ONE (17:09)
--- NOTE | 2019-08-08 17:12 | ER Document Report ---
ED GI/ - General Chief Complaint: Groin Injury Stated Complaint: GROIN PAIN Time Seen by Provider: 08/08/19 14:39 Primary Care Provider: SINA PETE MD [Primary Care Provider] - Follow up in 3-5 days Mode of Arrival: Ambulatory Information source: Patient Notes: 58-year-old male presented to ED for complaint of left groin pain. He states he was moving a box or lifting a box when he dropped a box and hit him in the left scrotum area inguinal area and then he had pain. He states he dropped a box about noon went to work for about 45 minutes and the pain got bad so he left work and came here. He is alert oriented respirations regular nonlabored speaking in full sentences. He did have urine and ultrasound done in the triage area. The urine did not show any blood the ultrasound showed a small 1 cm lymph node enlargement. His urine did show greater than 500 glucose. He is diabetic on metformin. Will get CBC chemistry given a liter of fluids and then have him follow-up with his primary care doctor. TRAVEL OUTSIDE OF THE [place] IN LAST 30 DAYS: No - HPI Patient complains to provider of: Groin pain Onset: This afternoon Timing/Duration: Better Quality of pain: Sharp Severity at maximum: Moderate Pain Level: 2 Location: Other - Left groin Associated symptoms: Other - Left groin Exacerbated by: Movement, Walking Relieved by: Denies Similar symptoms previously: No Recently seen / treated by doctor: No - Related Data Allergies/Adverse Reactions: No Known Allergies Allergy (Verified 09/14/18 21:59) Past Medical History - General Information source: Patient - Social History Smoking Status: Never Smoker Frequency of alcohol use: None Drug Abuse: None Occupation: [employer] Lives with: Family Family History: Reviewed & Not Pertinent, Arthritis, DM, Hyperlipidemia, Hypertension Patient has suicidal ideation: No Patient has homicidal ideation: No - Past Medical History Cardiac Medical History: Reports: Hx Hypercholesterolemia, Hx Hypertension Pulmonary Medical History: Reports: None EENT Medical History: Reports: None Neurological Medical History: Reports: None Endocrine Medical History: Reports: Hx Diabetes Mellitus Type 2 Renal/ Medical History: Reports: Hx Hydrocele, Hx Kidney Stones, Other - Left sided lymph node about 1 cm Malignancy Medical History: Reports None GI Medical History: Reports: None Musculoskeletal Medical History: Reports None Skin Medical History: Reports None Psychiatric Medical History: Reports: None Traumatic Medical History: Reports: None Infectious Medical History: Reports: None Past Surgical History: Reports: Hx Inguinal Hernia, Hx Kidney (Renal Surgery) - Lithotripsy for kidney stones - Immunizations Immunizations up to date: Yes Hx Diphtheria, Pertussis, Tetanus Vaccination: Yes Review of Systems - Review of Systems Constitutional: No symptoms reported EENT: No symptoms reported Cardiovascular: No symptoms reported Respiratory: No symptoms reported Gastrointestinal: No symptoms reported Genitourinary: Other - Left groin pain Male Genitourinary: No symptoms reported Musculoskeletal: No symptoms reported Skin: No symptoms reported Hematologic/Lymphatic: No symptoms reported Neurological/Psychological: No symptoms reported -: Yes All other systems reviewed and negative Physical Exam - Vital signs Vitals: Temp Pulse Resp BP Pulse Ox 98 F 76 18 163/66 H 96 08/08/19 14:29 08/08/19 14:29 08/08/19 14:29 08/08/19 14:29 08/08/19 14:29 Interpretation: Normal - General General appearance: Appears well, Alert - HEENT Head: Normocephalic, Atraumatic Eyes: Normal Pupils: PERRL - Respiratory Respiratory status: No respiratory distress Chest status: Nontender Breath sounds: Normal Chest palpation: Normal - Cardiovascular Rhythm: Regular Heart sounds: Normal auscultation Murmur: No - Abdominal Inspection: Normal Distension: No distension Bowel sounds: Normal Tenderness: Nontender Organomegaly: No organomegaly - Genitourinary Inspection: Normal Tenderness: Nontender Cremasteric reflex: Normal Scrotum: Normal Notes: Left enlarged lymph node groin - Back Back: Normal, Nontender - Extremities General upper extremity: Normal inspection, Nontender, Normal color, Normal ROM, Normal temperature General lower extremity: Normal inspection, Nontender, Normal color, Normal ROM, Normal temperature, Normal weight bearing. No: Lisandro's sign - Neurological Neuro grossly intact: Yes Cognition: Normal Orientation: AAOx4 [place] Coma Scale Eye Opening: Spontaneous [place] Coma Scale Verbal: Oriented [place] Coma Scale Motor: Obeys Commands [place] Coma Scale Total: 15 Speech: Normal Motor strength normal: LUE, RUE, LLE, RLE Sensory: Normal - Psychological Associated symptoms: Normal affect, Normal mood - Skin Skin Temperature: Warm Skin Moisture: Dry Skin Color: Normal Course - Re-evaluation Re-evalutation: 08/09/19 01:14 Lab results were discussed with patient. Patient was treated with a liter of fluids and Tylenol as well as metformin for his elevated blood sugar. Written report of labs and ultrasound were given to patient to follow-up with his primary care doctor. He was instructed to follow-up with a primary doctor on Sunday. Patient verbalized understanding and agreement with treatment plan and patient was discharged home. - Vital Signs Vital signs: Temp Pulse Resp BP Pulse Ox 97.6 F 62 16 144/74 H 96 08/08/19 18:55 08/08/19 18:55 08/08/19 18:55 08/08/19 18:55 08/08/19 18:55 - Laboratory Result Diagrams: 08/08/19 17:19 08/08/19 17:19 Laboratory results interpreted by me: 08/08/19 08/08/19 08/08/19 15:30 17:06 17:19 RDW 14.5 H Sodium Glucose POC Glucose 361 H Urine Glucose (UA) >=500 H Urine Blood SMALL H 08/08/19 08/08/19 17:19 18:44 RDW Sodium 135.1 L Glucose 410 H* POC Glucose 358 H Urine Glucose (UA) Urine Blood - Diagnostic Test Radiology reviewed: Image reviewed, Reports reviewed Discharge - Discharge Clinical Impression: Contusion of groin, left Qualifiers: Encounter type: initial encounter Qualified Code(s): S30.1XXA - Contusion of abdominal wall, initial encounter Hyperglycemia due to type 2 diabetes mellitus Qualifiers: Diabetes mellitus terminal carman insulin use: without terminal carman use Qualified Code (s): E11.65 - Type 2 diabetes mellitus with hyperglycemia Condition: Stable Disposition: HOME, SELF-CARE Additional Instructions: CONTUSION: Your injury has resulted in a contusion -- a crushing of the deep tissues. No injury to important structures was detected during the physician's exam. Contusions vary in the amount of pain they cause, and in the length of time required for healing. Typically, the area will become bruised, and will remain painful to touch for two or three weeks. However, most patients are back to working and playing within a few days. After the initial period of rest and cold-packs, your symptoms (together with the doctor's recommendations) will determine how rapidly you can get back to full activity. Usually this means "do what feels okay, but don't do things that hurt." If re-examination was recommended, it's important to follow up as instructed. Call the doctor or return any time if pain increases, if swelling becomes severe, if you develop numbness or weakness in an injured extremity, or if any other alarming symptoms occur. Your glucose was high during your visit today for your contusion to the left groin. You also have an enlarged lymph node in the left groin. Please follow- up with your primary doctor on Sunday to better control your glucose and to follow-up for the enlarged lymph node in your groin. There is no other injuries noted. Lymphadenopathy You have enlargement of lymph glands, called lymphadenopathy. Lymph glands filter tissue fluids. They help to fight infection. Most of the time, enlarged lymph glands are not serious. Lymph glands may react to a viral or bacterial infection by becoming swollen and painful. When the infection goes away, the glands shrink. Sometimes a lymph gland will remain enlarged for a long time after an infection. Occasionally, a lymph gland may be overwhelmed by infection and form an abscess. If an enlarged lymph gland has signs that are suspicious for tumor, the doc tor will recommend a biopsy. A suspicious gland usually is NOT painful, grows very slowly, and is rock-hard to touch. See the doctor or return if there is increasing swelling and redness, high fever, difficulty breathing, or any other change for the worse. USE OF TYLENOL (ACETAMINOPHEN): Acetaminophen may be taken for pain relief or fever control. It's much safer than aspirin, offering a wider range of "safe" dosages. It is safe during . Some brand names are Tylenol, Panadol, Datril, Anacin 3, Tempra, and Liquiprin. Acetaminophen can be repeated every four hours. The following are maximum recommended dosages: WEIGHT Dose Drops Elixir Chewable(80mg) (LBS.) drprs=droppers tsp=teaspoon 6 40 mg 0.4 ml (1/2) 6-11 80 mg 0.8 ml (full) tsp 1 tab 12-16 120 mg 1 1/2 drprs 3/4 tsp 1 1/2 tabs 17-23 160 mg 2 drprs 1 tsp 2 tabs 24-30 240 mg 3 drprs 1 1/2 tsp 3 tabs 30-35 320 mg 2 tsp 4 tabs 36-41 360 mg 2 1/4 tsp 4 1/2 tabs 42-47 400 mg 2 1/2 tsp 5 tabs 48-53 480 mg 3 tsp 6 tabs 54-59 520 mg 3 1/4 tsp 6 1/2 tabs 60-64 560 mg 3 1/2 tsp 7 tabs 65-70 600 mg 3 3/4 tsp 7 1/2 tabs 71-76 640 mg 4 tsp 8 tabs 77-82 720 mg 4 1/2 tsp 9 tabs 83-88 800 mg 5 tsp 10 tabs >89 pounds or adults 650 mg to 900 mg Acetaminophen can be repeated every four hours. Maximum dose not to exceed 4000 mg a day. These maximum recommended dosages are slightly higher than the dosages writt en on the product container, but these dosages are very safe and below the toxic dosage for acetaminophen. ICE PACKS: Apply ice packs frequently against the painful area. Many different schedu les are recommended, such as "20 minutes on, 20 minutes off" or "one hour ice, two hours rest." If you need to work, you may need to go longer between ice treatments. You should plan to have the area ice packed AT LEAST one fourth of the time. The ice should be applied over the wrap, tape, or splint, or over a layer of cloth -- not directly against the skin. Some ice bags have a built-in cloth and can be put directly on the skin. FOLLOW-UP CARE: If you have been referred to a physician for follow-up care, call the physicians office for an appointment as you were instructed or within the next two days. If you experience worsening or a significant change in your symptoms, notify the physician immediately or return to the Emergency Department at any time for re-evaluation. Forms: Elevated Blood Pressure, Return to Work Referrals: SINA PETE MD [Primary Care Provider] - Follow up in 3-5 days
[2019-08-08 18:14] LABS: ABSOLUTE EOSINOPHILS # (AUTO) 0.1 10^3/uL (0.0-0.6); ABSOLUTE LYMPHOCYTES (AUTO) 1.9 10^3/uL (0.5-4.7); ABSOLUTE MONOCYTES (AUTO) 0.5 10^3/uL (0.1-1.4); ABSOLUTE NEUT (AUTO) 3.7 10^3/uL (1.7-8.2); BASOPHILS % (AUTO) 0.6 % (0-2); EOSINOPHILS % (AUTO) 2.1 % (0-6); HEMATOCRIT 44.4 % (37.9-51.0); HEMOGLOBIN 14.4 g/dL (13.5-17.0); LYMPHOCYTES % (AUTO) 30.7 % (13-45); MEAN CORPUSCULAR HEMOGLOBIN 27.4 pg (27.0-33.4); MEAN CORPUSCULAR HGB CONC 32.5 g/dL (32.0-36.0); MEAN CORPUSCULAR VOLUME 84 fl (80-97); MONOCYTES % (AUTO) 7.8 % (3-13); PLATELET COUNT 205 10^3/uL (150-450); RED BLOOD COUNT 5.26 10^6/uL (4.35-5.55); RED CELL DISTRIBUTION WIDTH 14.5 % (11.5-14.0); SEGMENTED NEUTROPHILS % (AUTO) 58.8 % (42-78); TOTAL CELLS COUNTED % (AUTO) 100 %; WHITE BLOOD COUNT 6.2 10^3/uL (4.0-10.5)
[2019-08-08 18:32] LABS: ALBUMIN 3.5 g/dL (3.5-5.0); ALKALINE PHOSPHATASE 86 U/L (38-126); ANION GAP 7 (5-19); ASPARTATE AMINO TRANSFERASE 21 U/L (17-59); BILIRUBIN,DIRECT 0.2 mg/dL (0.0-0.4); BILIRUBIN,TOTAL 0.9 mg/dL (0.2-1.3); BLOOD UREA NITROGEN 19 mg/dL (7-20); CALCIUM 9.1 mg/dL (8.4-10.2); CARBON DIOXIDE 25 mmol/L (22-30); CHLORIDE 103 mmol/L (98-107); POTASSIUM 4.7 mmol/L (3.6-5.0); TOTAL PROTEIN 6.5 g/dL (6.3-8.2)
[2019-08-08 18:40] LABS: GLUCOSE 410 mg/dL (75-110)
[2019-08-08] MEDS ORDERED: METFORMIN HCL 500 MG TABLET PO ONE (18:44)
[2019-08-08 18:57] VITALS: BP 144/74
== END 2019-08-08 18:55 | disposition home or self-care (01) ==
LOC: ER 14:20
DX: S30.1XXA Contusion of abdominal wall, initial encounter (principal); R10.32 Left lower quadrant pain; W22.8XXA Striking against or struck by other objects, initial encounter; E11.65 Type 2 diabetes mellitus with hyperglycemia; E78.00 Pure hypercholesterolemia, unspecified; I10 Essential (primary) hypertension; Z87.442 Personal history of urinary calculi
CPT/HCPCS: 99284; 96360; 36415; 82962; 85025; 80053; 81001; 76870; 93976; J7030

== ENCOUNTER 2019-11-14 15:50 | Emergency (ER) | payer BC ==
[2019-11-14] MEDS ORDERED: IPRATROPIUM/ALBUTEROL 0.5-2.5 MG/3 ML AMPUL NEB ONE (16:36)
--- NOTE | 2019-11-14 16:43 | ER Document Report ---
ED Respiratory Problem - General Chief Complaint: Cough Stated Complaint: COUGH Time Seen by Provider: 11/14/19 15:57 Primary Care Provider: SINA PETE MD [Primary Care Provider] - Follow up as needed Notes: CHIEF COMPLAINT: Cough at work today HPI: 59-year-old male presenting to the emergency department complaining of a cough he developed while at work today. Mild shortness of breath with a cough no chest pain no fever. No abdominal pain. Patient reports a history of diabetes and hypertension that are both well controlled per the patient. Patient does work in a factory setting. ROS: See HPI - all other systems were reviewed and are otherwise negative Constitutional: no fever Eyes: no drainage, no blurred vision ENT: no runny nose, no sore throat Cardiovascular: no chest pain Resp: + SOB, + cough GI: no vomiting, no diarrhea, no abdominal pain : no dysuria Integumentary: no rash Allergy: no hives Musculoskeletal: no extremity pain or swelling Neurological: no numbness/tingling, no weakness MEDICATIONS: I agree with the patient medications as charted by the RN. ALLERGIES: I agree with the allergies as charted by the RN. PAST MEDICAL HISTORY/PAST SURGICAL HISTORY: Reviewed and agree as charted by RN. SOCIAL HISTORY: Reviewed and agree as charted by RN. FAMILY HISTORY: No significant familial comorbid conditions directly related to patient complaint EXAM: Reviewed vital signs as charted by RN. CONSTITUTIONAL: Alert and oriented and responds appropriately to questions. Well-appearing; well-nourished HEAD: Normocephalic; atraumatic EYES: PERRL; Conjunctivae clear, sclerae non-icteric ENT: normal nose; no rhinorrhea; moist mucous membranes; pharynx without lesions noted, no uvula edema or deviation, no tonsillar hypertrophy, phonation normal NECK: Supple without meningismus; non-tender; no cervical lymphadenopathy, no masses CARD: RRR; no murmurs, no clicks, no rubs, no gallops; symmetric distal pulses RESP: Normal chest excursion without splinting or tachypnea; breath sounds with very slight expiratory wheeze in the left posterior base, no rhonchi, no rales, pulse oximetry 93% on room air mildly hypoxic ABD/GI: Normal bowel sounds; non-distended; soft, non-tender, no rebound, no guarding; no palpable organomegaly or masses. BACK: The back appears normal and is non-tender to palpation, there is no CVA tenderness EXT: Normal ROM in all joints; non-tender to palpation; no cyanosis, no effusions, no edema SKIN: Normal color for age and race; warm; dry; good turgor; no acute lesions noted NEURO: Moves all extremities equally; Motor and sensory function intact PSYCH: The patient's mood and manner are appropriate. Grooming and personal hygiene are appropriate. MDM: 59-year-old male with cough and shortness of breath that he developed at work today. Works in a factory setting, states there are no known COVID positive individuals at work. Has absolutely no chest discomfort. Slight expiratory wheezing in the left posterior base. Awaiting chest x-ray read by radiology. Have low suspicion for ACS in this patient at this time. Will obtain COVID screening. Will give breathing treatment. Will reassess after breathing treatment of patient's shortness of breath improves or resolves with just albuterol more likely this is respiratory and not cardiac. Will obtain an EKG given the patient's age and medical history. If the EKG shows no abnorm alities will anticipate discharge home with symptomatic treatment. If patient does not feel improvement in the shortness of breath with breathing treatment will consider cardiac work-up TRAVEL OUTSIDE OF THE [place] IN LAST 30 DAYS: No - Related Data Allergies/Adverse Reactions: No Known Allergies Allergy (Verified 09/14/18 21:59) Home Medications: metformin. HTN Past Medical History - Social History Smoking Status: Never Smoker Family History: Reviewed & Not Pertinent, Arthritis, DM, Hyperlipidemia, Hypertension Patient has homicidal ideation: No - Past Medical History Cardiac Medical History: Reports: Hx Hypercholesterolemia, Hx Hypertension Denies: Hx Coronary Artery Disease, Hx Heart Attack Pulmonary Medical History: Denies: Hx Asthma, Hx Bronchitis, Hx COPD, Hx Pneumonia Neurological Medical History: Denies: Hx Cerebrovascular Accident, Hx Seizures Endocrine Medical History: Reports: Hx Diabetes Mellitus Type 1, Hx Diabetes Mellitus Type 2 Renal/ Medical History: Reports: Hx Hydrocele, Hx Kidney Stones. Denies: Hx Peritoneal Dialysis Musculoskeletal Medical History: Denies Hx Arthritis Past Surgical History: Reports: Hx Abdominal Surgery - hernia repair, Hx Inguinal Hernia, Hx Kidney (Renal Surgery) - Lithotripsy for kidney stones, Other - Lithotripsy for kidney stones - Immunizations Immunizations up to date: Yes Hx Diphtheria, Pertussis, Tetanus Vaccination: Yes Physical Exam - Vital signs Vitals: Temp Pulse Resp BP Pulse Ox 98.6 F 84 16 161/82 H 93 11/14/19 16:03 11/14/19 16:03 11/14/19 16:03 11/14/19 16:03 11/14/19 16:03 Course - Re-evaluation Re-evalutation: 11/14/19 17:18 Pulse oximetry improved to 96% on room air after breathing treatment patient feels much better no shortness of breath now, no wheezing. I spoke with the patient at length, he has a small infiltrate in the left lower lobe consistent with an early pneumonia. We discussed COVID-19. He is now considered a person under investigation and is to self quarantine for 14 days or until his test results are negative. He verbalizes understanding of this. He also is aware that the COVID test will take 2 to 3 days, if he is positive he will need to notify his work - Vital Signs Vital signs: Temp Pulse Resp BP Pulse Ox 98.6 F 84 16 161/82 H 93 11/14/19 16:19 11/14/19 16:03 11/14/19 16:03 11/14/19 16:03 11/14/19 16:03 Discharge - Discharge Clinical Impression: Person under investigation for COVID-19 Pneumonia involving left lung Qualifiers: Pneumonia type: due to unspecified organism Lung location: lower lobe of lung Qualified Code(s): J18.9 - Pneumonia, unspecified organism Condition: Stable Disposition: HOME, SELF-CARE Instructions: Pneumonia ([facility]), COVID-19 Guidance for Persons Under Investigation Additional Instructions: Use the albuterol inhaler 2 to 4 puffs every 4 hours as needed for shortness of breath. Take the antibiotics as prescribed. You are considered a person under investigation at this time for COVID-19, go home and quarantine for the next 14 days or until you have a negative test result. Return to the emergency department for onset of fever greater than 101 worsening shortness of breath or concerns Prescriptions: Albuterol Sulfate [Proair HFA Inhalation Aerosol 8.5 gm MDI] 2 puff IH Q4H PRN #1 mdi PRN Reason: Azithromycin [Zithromax 250 mg Tablet] 250 mg PO ASDIR PRN #6 tablet PRN Reason: Referrals: SINA PETE MD [Primary Care Provider] - Follow up as needed
--- NOTE | 2019-11-14 16:43 | RADIOLOGY REPORT (SQ) ---
EXAM DESCRIPTION: CHEST SINGLE VIEW IMAGES COMPLETED DATE/TIME: 11/14/2019 4:30 pm REASON FOR STUDY: cough COMPARISON: 05/17/2018 EXAM PARAMETERS: NUMBER OF VIEWS: One view. TECHNIQUE: Single frontal radiographic view of the chest acquired. RADIATION DOSE: NA LIMITATIONS: None. FINDINGS: LUNGS AND PLEURA: Slight atelectasis or early infiltrate suggested at the left lung base. The right lung is clear. No pneumothorax or pleural effusion. MEDIASTINUM AND HILAR STRUCTURES: No masses. Contour normal. HEART AND VASCULAR STRUCTURES: Heart normal in size. Normal vasculature. BONES: No acute findings. HARDWARE: None in the chest. OTHER: No other significant finding. IMPRESSION: 1. Slight atelectasis or early infiltrate suggested at the left lung base. TECHNICAL DOCUMENTATION: JOB ID: [id number] 2010 [employer]- All Rights Reserved Reading location - IP/workstation name: [email or web address]
[2019-11-14] MEDS ORDERED: AZITHROMYCIN 250 MG TABLET PO ONE (17:21)
[2019-11-14 17:37] VITALS: BP 159/81
--- NOTE | 2019-11-15 20:44 | EKG REPORT ---
SEVERITY:- BORDERLINE ECG - SINUS RHYTHM BORDERLINE T ABNORMALITIES, INFERIOR LEADS : Confirmed by: Bea Baer 15-Nov-2019 20:44:04
== END 2019-11-14 17:36 | disposition home or self-care (01) ==
LOC: ER 15:50
DX: J18.9 Pneumonia, unspecified organism (principal); R05 Cough; R06.02 Shortness of breath; I10 Essential (primary) hypertension; E11.9 Type 2 diabetes mellitus without complications; Z79.84 Long term (current) use of oral hypoglycemic drugs; Z79.899 Other long term (current) drug therapy; Z20.828 Contact with and (suspected) exposure to other viral communicable diseases
CPT/HCPCS: 93005; 94640; 99284; 87635; 71045; 93010; J7620; C9803

== ENCOUNTER 2019-11-18 09:11 | Emergency (ER) | payer BC ==
[2019-11-18] MEDS ORDERED: GUAIFENESIN/D-METHORPHAN (200-20 MG) SYRUP 10 ML PO ONE (09:54)
--- NOTE | 2019-11-18 10:01 | ER Document Report ---
ED General - General Chief Complaint: Cough Stated Complaint: COUGH,CONGESTION Time Seen by Provider: 11/18/19 09:46 Primary Care Provider: SINA PETE MD [Primary Care Provider] - Follow up as needed TRAVEL OUTSIDE OF THE [place] IN LAST 30 DAYS: No - HPI Onset: Other - over the last 4-5 days Onset/Duration: Gradual Quality of pain: No pain Severity: Mild Pain Level: Denies Associated symptoms: None Exacerbated by: Denies Relieved by: Denies Similar symptoms previously: No Recently seen / treated by doctor: Yes - patient seen in the ER on 11/14/19 Notes: 59 year old male with a history of HTN, HLD, DM who was seen in this ER on 11/14/19 (diagnosed with possible pneumonia and had negative COVID test then) here in the ER for a worsening productive cough. The patient has been taking the prescribed Azithromycin and Albuterol. The patient denies fevers, chills, sweats, nausea, vomiting, trouble breathing, shortness of breath, chest pain. 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 - Related Data Allergies/Adverse Reactions: No Known Allergies Allergy (Verified 09/14/18 21:59) Past Medical History - General Information source: Patient - Social History Smoking Status: Never Smoker Frequency of alcohol use: None Drug Abuse: None Family History: Reviewed & Not Pertinent, Arthritis, DM, Hyperlipidemia, Hypertension Patient has homicidal ideation: No - Past Medical History Cardiac Medical History: Reports: Hx Hypercholesterolemia, Hx Hypertension Denies: Hx Coronary Artery Disease, Hx Heart Attack Pulmonary Medical History: Denies: Hx Asthma, Hx Bronchitis, Hx COPD, Hx Pneumonia Neurological Medical History: Denies: Hx Cerebrovascular Accident, Hx Seizures Endocrine Medical History: Reports: Hx Diabetes Mellitus Type 1, Hx Diabetes Mellitus Type 2 Renal/ Medical History: Reports: Hx Hydrocele, Hx Kidney Stones. Denies: Hx Peritoneal Dialysis Musculoskeletal Medical History: Denies Hx Arthritis Past Surgical History: Reports: Hx Abdominal Surgery - hernia repair, Hx Inguinal Hernia, Hx Kidney (Renal Surgery) - Lithotripsy for kidney stones, Other - Lithotripsy for kidney stones - Immunizations Immunizations up to date: Yes Hx Diphtheria, Pertussis, Tetanus Vaccination: Yes Review of Systems - Review of Systems Constitutional: No symptoms reported EENT: No symptoms reported Cardiovascular: No symptoms reported Respiratory: Cough Gastrointestinal: No symptoms reported Genitourinary: No symptoms reported Male Genitourinary: No symptoms reported Musculoskeletal: No symptoms reported Skin: No symptoms reported Hematologic/Lymphatic: No symptoms reported Neurological/Psychological: No symptoms reported -: Yes All other systems reviewed and negative Physical Exam - Vital signs Vitals: Temp Pulse Resp BP Pulse Ox 98.1 F 67 16 160/83 H 97 11/18/19 09:15 11/18/19 09:15 11/18/19 09:15 11/18/19 09:15 11/18/19 09:15 - Notes Notes: GENERAL: Well-appearing, well-nourished and in no acute distress. HEAD: Atraumatic, normocephalic. EYES: Pupils equal round and reactive to light, extraocular movements intact, sclera anicteric, conjunctiva are normal. ENT: External ears normal, nares patent, oropharynx clear without exudates. Moist mucous membranes. NECK: Normal range of motion, supple without lymphadenopathy or JVD. LUNGS: Breath sounds clear to auscultation bilaterally and equal. No wheezes rales or rhonchi. HEART: Regular rate and rhythm without murmurs, rubs or gallops. ABDOMEN: Soft, nontender, normoactive bowel sounds. No guarding, no rebound. No masses appreciated. EXTREMITIES: Normal range of motion, no pitting or edema. No clubbing or cyanosis. NEUROLOGICAL: Cranial nerves II through XII grossly intact. Normal speech, normal gait. PSYCH: Normal mood, normal affect. SKIN: Warm, Dry, normal turgor, no rashes or lesions noted. Course - Re-evaluation Re-evalutation: 11/18/19 10:54 The patient is here for a persistent cough. He is currently being treated with Azithromycin and Albuterol. Chest Xray today shows no acute process despite Chest Xray on 11/14/19 showing possible pneumonia. Patient tested negative for COVID19 on 11/14/19. Patient told to finish his previously prescribed medications and to use over the counter cough suppressants. - Vital Signs Vital signs: Temp Pulse Resp BP Pulse Ox 98.1 F 67 16 160/83 H 97 11/18/19 09:29 11/18/19 09:15 11/18/19 09:15 11/18/19 09:15 11/18/19 09:15 - Diagnostic Test Radiology reviewed: Image reviewed, Reports reviewed Discharge - Discharge Clinical Impression: Cough Condition: Stable Disposition: HOME, SELF-CARE Instructions: Cough Suppressant & Expectorant Medications Additional Instructions: Finish your previously prescribed antibiotics and use your previously prescribed albuterol inhaler as needed. Also consider using over the counter cough medications such as Guaifenesin/DM. You had a Chest Xray in the ER today which showed no acute process. Follow up with your primary care doctor if your cough persists or if other symptoms begin. Referrals: SINA PETE MD [Primary Care Provider] - Follow up as needed
--- NOTE | 2019-11-18 10:31 | RADIOLOGY REPORT (SQ) ---
EXAM DESCRIPTION: CHEST 2 VIEWS IMAGES COMPLETED DATE/TIME: 11/18/2019 10:04 am REASON FOR STUDY: eval for cause of persistent cough COMPARISON: 11/14/2019 EXAM PARAMETERS: NUMBER OF VIEWS: two views TECHNIQUE: Digital Frontal and Lateral radiographic views of the chest acquired. RADIATION DOSE: NA LIMITATIONS: none FINDINGS: LUNGS AND PLEURA: No opacities, masses or pneumothorax. No pleural effusion. MEDIASTINUM AND HILAR STRUCTURES: No masses or contour abnormalities. HEART AND VASCULAR STRUCTURES: Heart normal size. No evidence for failure. BONES: No acute findings. HARDWARE: None in the chest. OTHER: No other significant finding. IMPRESSION: NO ACUTE RADIOGRAPHIC FINDING IN THE CHEST. TECHNICAL DOCUMENTATION: JOB ID: [id number] 2010 [employer]- All Rights Reserved Reading location - IP/workstation name: [email or web address]
[2019-11-18 11:25] VITALS: BP 166/83
== END 2019-11-18 11:23 | disposition home or self-care (01) ==
LOC: ER 09:11
DX: R05 Cough (principal); I10 Essential (primary) hypertension
CPT/HCPCS: 99283; 71046; J3490

== ENCOUNTER 2019-12-29 16:53 | Emergency (ER) | payer BC ==
[2019-12-29 17:03] VITALS: BP 154/78
--- NOTE | 2019-12-29 17:21 | ER Document Report ---
ED Medical Screen (RME) - General Chief Complaint: Rectal Pain Stated Complaint: RECTAL PAIN Time Seen by Provider: 12/29/19 17:15 Primary Care Provider: SINA PETE MD [Primary Care Provider] - Follow up as needed Mode of Arrival: Ambulatory Information source: Patient Notes: HPI; 59-year-old male history of hemorrhoids presents the emergency room states he is unable to have a bowel movement secondary to hemorrhoid pain. Denies any bleeding. States he started with the pain earlier today. No meds for symptoms. PE: Alert and oriented x3. Lungs: Clear to auscultation without rales, rhonchi, wheezes heart: Regular rate and rhythm without murmurs, rubs, gallops. Unable to do full assessment in triage I have greeted and performed a rapid initial assessment of this patient. A comprehensive ED assessment and evaluation of the patient, analysis of test results and completion of the medical decision making process will be conducted by additional ED providers. I have specifically instructed the patient or family members with the patient to immediately return to any nursing staff should anything change in the patient's condition or with their chief complaint. TRAVEL OUTSIDE OF THE [place] IN LAST 30 DAYS: No - Related Data Allergies/Adverse Reactions: No Known Allergies Allergy (Verified 12/29/19 17:12) Past Medical History - Past Medical History Cardiac Medical History: Reports: Hx Hypercholesterolemia, Hx Hypertension Denies: Hx Coronary Artery Disease, Hx Heart Attack Pulmonary Medical History: Denies: Hx Asthma, Hx Bronchitis, Hx COPD, Hx Pneumonia Neurological Medical History: Denies: Hx Cerebrovascular Accident, Hx Seizures Endocrine Medical History: Reports: Hx Diabetes Mellitus Type 1, Hx Diabetes Mellitus Type 2 Renal/ Medical History: Reports: Hx Hydrocele, Hx Kidney Stones. Denies: Hx Peritoneal Dialysis Musculoskeltal Medical History: Denies Hx Arthritis Past Surgical History: Reports: Hx Abdominal Surgery - hernia repair, Hx Inguinal Hernia, Hx Kidney (Renal Surgery) - Lithotripsy for kidney stones, Other - Lithotripsy for kidney stones - Immunizations Immunizations up to date: Yes Hx Diphtheria, Pertussis, Tetanus Vaccination: Yes Physical Exam - Vital signs Vitals: Temp Pulse Resp BP Pulse Ox 98.2 F 75 20 154/78 H 99 12/29/19 17:01 12/29/19 17:01 12/29/19 17:01 12/29/19 17:01 12/29/19 17:01 Course - Vital Signs Vital signs: Temp Pulse Resp BP Pulse Ox 98.2 F 75 20 154/78 H 99 12/29/19 17:01 12/29/19 17:01 12/29/19 17:01 12/29/19 17:01 12/29/19 17:01 Doctor's Discharge - Discharge Referrals: SINA PETE MD [Primary Care Provider] - Follow up as needed
--- NOTE | 2019-12-29 17:53 | ER Document Report ---
HPI - HPI Patient complains to provider of: Rectal pain Time Seen by Provider: 12/29/19 17:15 Onset: Just prior to arrival Pain Level: 3 Context: This is a 59-year-old male presented to the emergency room today stating he had discomfort to his rectal area after trying to use the bathroom today. He felt that there was a bump on the outer edge of his anus. Associated Symptoms: None Exacerbated by: Denies Similar symptoms previously: No Recently seen / treated by doctor: No - REPRODUCTIVE Reproductive: DENIES: : Past Medical History - General Information source: Patient - Social History Smoking Status: Never Smoker Chew tobacco use (# tins/day): No Frequency of alcohol use: None Drug Abuse: None Family History: Reviewed & Not Pertinent, Arthritis, DM, Hyperlipidemia, Hypertension Patient has homicidal ideation: No - Past Medical History Cardiac Medical History: Reports: Hx Hypercholesterolemia, Hx Hypertension Denies: Hx Coronary Artery Disease, Hx Heart Attack Pulmonary Medical History: Denies: Hx Asthma, Hx Bronchitis, Hx COPD, Hx Pneumonia Neurological Medical History: Denies: Hx Cerebrovascular Accident, Hx Seizures Endocrine Medical History: Reports: Hx Diabetes Mellitus Type 1, Hx Diabetes Mellitus Type 2 Renal/ Medical History: Reports: Hx Hydrocele, Hx Kidney Stones. Denies: Hx Peritoneal Dialysis Musculoskeletal Medical History: Denies Hx Arthritis Past Surgical History: Reports: Hx Abdominal Surgery - hernia repair, Hx Inguinal Hernia, Hx Kidney (Renal Surgery) - Lithotripsy for kidney stones, Other - Lithotripsy for kidney stones - Immunizations Immunizations up to date: Yes Hx Diphtheria, Pertussis, Tetanus Vaccination: Yes Vertical Provider Document - CONSTITUTIONAL Agree With Documented VS: Yes - INFECTION CONTROL TRAVEL OUTSIDE OF THE [place] IN LAST 30 DAYS: No - HEENT HEENT: Atraumatic, Conjuctival Injection - NECK Neck: Normal Inspection - RESPIRATORY Respiratory: Breath Sounds Normal, No Respiratory Distress - CARDIOVASCULAR Cardiovascular: Regular Rate, Regular Rhythm - GI/ABDOMEN Gastrointestinal: Abdomen Soft, Abdomen Non-Tender - REPRODUCTIVE Notes: Rectal exam revealed a 1 cm hemorrhoid nonthrombosed to the right lateral anus area. - BACK Back: Normal Inspection - MUSCULOSKELETAL/EXTREMETIES Musculoskeletal/Extremeties: MA Course - Re-evaluation Re-evalutation: 12/29/19 17:52 Per examination patient has a hemorrhoid. He is awake alert oriented x4 eating drinking taking nourishment ambulatory with a rhythmic and steady gait. He does have tenderness to nonthrombosed hemorrhoid to the right lateral aspect of his anus. - Vital Signs Vital signs: Temp Pulse Resp BP Pulse Ox 98.2 F 75 20 154/78 H 99 12/29/19 17:01 12/29/19 17:01 12/29/19 17:01 12/29/19 17:01 12/29/19 17:01 Discharge - Discharge Clinical Impression: Hemorrhoid Qualifiers: Hemorrhoid type: unspecified Qualified Code(s): K64.9 - Unspecified hemorrhoids Disposition: HOME, SELF-CARE Instructions: Hemorrhoids ([facility]) Prescriptions: Hydrocortisone Acetate [Anusol Hc 25 mg Supp.rect] 1 supp.rect MS BID #14 supp.rect Referrals: SINA PETE MD [Primary Care Provider] - Follow up as needed
== END 2019-12-29 18:00 | disposition home or self-care (01) ==
LOC: ER 16:53
DX: K64.9 Unspecified hemorrhoids (principal); K62.89 Other specified diseases of anus and rectum; I10 Essential (primary) hypertension; E11.9 Type 2 diabetes mellitus without complications
CPT/HCPCS: 99282

== ENCOUNTER 2020-02-02 17:45 | Emergency (ER) | payer BC ==
[2020-02-02 18:04] VITALS: BP 118/59
--- NOTE | 2020-02-02 18:45 | ER Document Report ---
ED Medical Screen (RME) - General Stated Complaint: BLOOD SUGAR ISSUES Primary Care Provider: SINA PETE MD [Primary Care Provider] - Follow up as needed Notes: Patient is a 59-year-old -[place] male with a history of type 2 diabetes and hypertension who presents to the emergency department the chief complaint of elevated blood sugar readings. He states his been in the mid to high 200s over the past several days. He states this is been accompanied by frequent urination at night, approximately every 30 minutes per patient. He states that when urinating so much that the head of his penis is now sore and swollen. He denies any discharge or involvement of the testicles. Denies any abdominal pain. No other pain, complaints or concerns at this time. I have treated and performed a rapid initial assessment of this patient. A comprehensive ED assessment and evaluation of the patient, analysis of test results and completion of medical decision making process will be conducted by additional ED providers. PHYSICAL EXAMINATION: GENERAL: Well-appearing, well-nourished and in no acute distress. A&Ox4. Answers questions appropriately. TRAVEL OUTSIDE OF THE [place] IN LAST 30 DAYS: No - Related Data Allergies/Adverse Reactions: No Known Allergies Allergy (Verified 12/29/19 17:12) Past Medical History - Past Medical History Cardiac Medical History: Reports: Hx Hypercholesterolemia, Hx Hypertension Denies: Hx Coronary Artery Disease, Hx Heart Attack Pulmonary Medical History: Denies: Hx Asthma, Hx Bronchitis, Hx COPD, Hx Pneumonia Neurological Medical History: Denies: Hx Cerebrovascular Accident, Hx Seizures Endocrine Medical History: Reports: Hx Diabetes Mellitus Type 1, Hx Diabetes Mellitus Type 2 Renal/ Medical History: Reports: Hx Hydrocele, Hx Kidney Stones. Denies: Hx Peritoneal Dialysis Musculoskeltal Medical History: Denies Hx Arthritis Past Surgical History: Reports: Hx Abdominal Surgery - hernia repair, Hx Inguinal Hernia, Hx Kidney (Renal Surgery) - Lithotripsy for kidney stones, Other - Lithotripsy for kidney stones - Immunizations Immunizations up to date: Yes Hx Diphtheria, Pertussis, Tetanus Vaccination: Yes Physical Exam - Vital signs Vitals: Temp Pulse Resp BP Pulse Ox 98.1 F 70 20 118/59 L 100 02/02/20 18:03 02/02/20 18:03 02/02/20 18:03 02/02/20 18:03 02/02/20 18:03 Course - Vital Signs Vital signs: Temp Pulse Resp BP Pulse Ox 98.1 F 70 20 118/59 L 100 02/02/20 18:03 02/02/20 18:03 02/02/20 18:03 02/02/20 18:03 02/02/20 18:03 Doctor's Discharge - Discharge Referrals: SINA PETE MD [Primary Care Provider] - Follow up as needed
[2020-02-02 19:18] LABS: ABSOLUTE BASOPHILS # (AUTO) 0.1 10^3/uL (0.0-0.2); ABSOLUTE EOSINOPHILS # (AUTO) 0.2 10^3/uL (0.0-0.6); ABSOLUTE LYMPHOCYTES (AUTO) 2.2 10^3/uL (0.5-4.7); ABSOLUTE MONOCYTES (AUTO) 0.5 10^3/uL (0.1-1.4); ABSOLUTE NEUT (AUTO) 3.8 10^3/uL (1.7-8.2); BASOPHILS % (AUTO) 1.1 % (0-2); EOSINOPHILS % (AUTO) 3.3 % (0-6); HEMATOCRIT 44.5 % (37.9-51.0); HEMOGLOBIN 14.5 g/dL (13.5-17.0); LYMPHOCYTES % (AUTO) 32.3 % (13-45); MEAN CORPUSCULAR HEMOGLOBIN 27.1 pg (27.0-33.4); MEAN CORPUSCULAR HGB CONC 32.5 g/dL (32.0-36.0); MEAN CORPUSCULAR VOLUME 83 fl (80-97); MONOCYTES % (AUTO) 7.4 % (3-13); PLATELET COUNT 223 10^3/uL (150-450); RED BLOOD COUNT 5.34 10^6/uL (4.35-5.55); RED CELL DISTRIBUTION WIDTH 15.3 % (11.5-14.0); SEGMENTED NEUTROPHILS % (AUTO) 55.9 % (42-78); TOTAL CELLS COUNTED % (AUTO) 100 %; WHITE BLOOD COUNT 6.8 10^3/uL (4.0-10.5)
[2020-02-02 19:21] LABS: APPEARANCE,URINE SLIGHTLY-CLOUDY; BILIRUBIN,URINE NEGATIVE (NEGATIVE); COLOR,URINE YELLOW; GLUCOSE, URINE NEGATIVE (NEGATIVE); KETONES,URINE TRACE mg/dL (NEGATIVE); PROTEIN,URINE NEGATIVE (NEGATIVE); URINE SPECIFIC GRAVITY 1.018; UROBILINOGEN,URINE NEGATIVE mg/dL (<2.0)
[2020-02-02 19:38] LABS: ALBUMIN 4.1 g/dL (3.5-5.0); ALKALINE PHOSPHATASE 93 U/L (38-126); ANION GAP 7 (5-19); ASPARTATE AMINO TRANSFERASE 23 U/L (17-59); BILIRUBIN,DIRECT 0.1 mg/dL (0.0-0.4); BILIRUBIN,TOTAL 2.2 mg/dL (0.2-1.3); BLOOD UREA NITROGEN 14 mg/dL (7-20); CALCIUM 9.4 mg/dL (8.4-10.2); CARBON DIOXIDE 27 mmol/L (22-30); CHLORIDE 100 mmol/L (98-107); GLUCOSE 198 mg/dL (75-110); POTASSIUM 4.2 mmol/L (3.6-5.0); TOTAL PROTEIN 7.1 g/dL (6.3-8.2)
--- NOTE | 2020-02-02 23:22 | ER Document Report ---
ED General - General Chief Complaint: High Blood Sugar Stated Complaint: BLOOD SUGAR ISSUES Time Seen by Provider: 02/02/20 23:19 Primary Care Provider: SINA PETE MD [Primary Care Provider] - 02/05/20 Notes: Patient is a 59-year-old male with history of type 2 diabetes and high blood pressure that comes emergency department for chief complaint of painful urination, frequent urination, swelling and redness to the head of the penis, and also concerns that his blood glucose has been elevated. His blood glucose has been staying in the 200s over the past several days which is higher than normal. He denies abdominal pain, flank pain, fever, vomiting. He denies any discharge from the penis, he denies testicular pain. He denies any other complaints at this time. TRAVEL OUTSIDE OF THE [place] IN LAST 30 DAYS: No - Related Data Allergies/Adverse Reactions: No Known Allergies Allergy (Verified 12/29/19 17:12) Past Medical History - General Information source: Patient - Social History Smoking Status: Never Smoker Frequency of alcohol use: None Drug Abuse: None Lives with: Family Family History: Reviewed & Not Pertinent, Arthritis, DM, Hyperlipidemia, Hypertension - Past Medical History Cardiac Medical History: Reports: Hx Hypercholesterolemia, Hx Hypertension Denies: Hx Coronary Artery Disease, Hx Heart Attack Pulmonary Medical History: Denies: Hx Asthma, Hx Bronchitis, Hx COPD, Hx Pneumonia Neurological Medical History: Denies: Hx Cerebrovascular Accident, Hx Seizures Endocrine Medical History: Reports: Hx Diabetes Mellitus Type 2 Renal/ Medical History: Reports: Hx Hydrocele, Hx Kidney Stones. Denies: Hx Peritoneal Dialysis Musculoskeletal Medical History: Denies Hx Arthritis Past Surgical History: Reports: Hx Abdominal Surgery - hernia repair, Hx Inguinal Hernia, Hx Kidney (Renal Surgery) - Lithotripsy for kidney stones, Other - Lithotripsy for kidney stones - Immunizations Immunizations up to date: Yes Hx Diphtheria, Pertussis, Tetanus Vaccination: Yes Review of Systems - Review of Systems Constitutional: No symptoms reported EENT: No symptoms reported Cardiovascular: No symptoms reported Respiratory: No symptoms reported Gastrointestinal: No symptoms reported Genitourinary: See HPI Male Genitourinary: See HPI Musculoskeletal: No symptoms reported Skin: No symptoms reported Hematologic/Lymphatic: No symptoms reported Neurological/Psychological: No symptoms reported Physical Exam - Vital signs Vitals: Temp Pulse Resp BP Pulse Ox 98.1 F 70 20 118/59 L 100 02/02/20 18:03 02/02/20 18:03 02/02/20 18:03 02/02/20 18:02/02/20 18:03 - Notes Notes: GENERAL: Alert, interacts well. No acute distress. HEAD: Normocephalic, atraumatic. EYES: Pupils equal, round, and reactive to light. Extraocular movements intact. ENT: Oral mucosa moist, tongue midline. Oropharynx unremarkable. Airway patent. LUNGS: Clear to auscultation bilaterally, no wheezes, rales, or rhonchi. No respiratory distress. Non-tender chest wall. HEART: Regular rate and rhythm. No murmur ABDOMEN: Soft, non-tender. Non-distended. Bowel sounds present in all 4 quadrants. GENITOURINARY: There is erythema and slight swelling over the foreskin and slightly over the head of the penis. This is consistent with Stephanie and I do not see any significant swelling, cellulitis, there is no abnormality with the scrotum or testicles noted, normal cremasteric reflex, no discharge, no bleeding, no other concerning findings. EXTREMITIES: Moves all 4 extremities spontaneously. No edema, normal radial and dorsalis pedis pulses bilaterally. No cyanosis. BACK: no cervical, thoracic, lumbar midline tenderness. No saddle anesthesia, normal distal neurovascular exam. Moves all extremities in full range of motion. NEUROLOGICAL: Alert and oriented x3. Normal speech. Cranial nerves II through XII grossly intact. Strength 5/5 in all extremities. PSYCH: Normal affect, normal mood. SKIN: Warm, dry, normal turgor. No rashes or lesions noted. Course - Re-evaluation Re-evalutation: CBC unremarkable, chemistry shows mild hyperglycemia without acidosis, urine indicates infection. Patient has dysuria, urinary frequency, and a physical exam suggesting candidiasis. However I do not see any evidence of cellulitis, there is no tenderness or swelling of the scrotum, I do not see any evidence of abscess, patient does not have fever. Discussed details with patient, patient started on antifungal, antibiotic, patient will follow-up with primary care closely, discussed return precautions. Patient states appreciation and agreement. Stable and well-appearing at time of discharge. - Vital Signs Vital signs: Temp Pulse Resp BP Pulse Ox 98.1 F 70 20 118/59 L 100 02/02/20 18:03 02/02/20 18:03 02/02/20 18:03 02/02/20 18:03 02/02/20 18:03 - Laboratory Result Diagrams: 02/02/20 19:05 02/02/20 19:05 Laboratory results interpreted by me: 02/02/20 02/02/20 02/02/20 19:04 19:05 19:05 RDW 15.3 H Sodium 133.9 L Glucose 198 H POC Glucose 191 H Total Bilirubin 2.2 H Urine Ketones Urine Blood Leukocyte Esterase Rfl 02/02/20 02/02/20 19:05 22:51 RDW Sodium Glucose POC Glucose 139 H Total Bilirubin Urine Ketones TRACE H Urine Blood SMALL H Leukocyte Esterase Rfl MODERATE H Discharge - Discharge Clinical Impression: Dysuria, Urinary frequency, Balanitis Condition: Stable Disposition: HOME, SELF-CARE Additional Instructions: Your evaluation shows a urinary tract infection and also what appears to be a fungal infection of your genitals (balanitis). Take the antibiotic as prescribed, use the topical antifungal as prescribed, please see your provider in 2 to 3 days for recheck. Keep the area as dry as possible. Come back if you worsen including fever, vomiting, swelling of the area, if you cannot urinate, or any other concerning or worsening symptoms. Prescriptions: Cephalexin Monohydrate [Keflex 500 mg Capsule] 500 mg PO BID 7 Days #14 capsule Clotrimazole 1% Cream [Lotrimin 1% Cream 15 gm] 1 applic TOP BID #15 gram Forms: Return to Work Referrals: SINA PETE MD [Primary Care Provider] - 02/05/20
[2020-02-02] MEDS ORDERED: CEPHALEXIN 500 MG CAPSULE PO ONE (23:23)
[2020-02-02] MEDS ORDERED: FLUCONAZOLE 100 MG TABLET PO ONE (23:23)
== END 2020-02-02 23:39 | disposition home or self-care (01) ==
LOC: ER 17:45
DX: N48.1 Balanitis (principal); E11.65 Type 2 diabetes mellitus with hyperglycemia; R35.0 Frequency of micturition; R30.0 Dysuria; I10 Essential (primary) hypertension
CPT/HCPCS: 36415; 80053; 81001; 82962; 85025; 87086; 87088; 99283

== ENCOUNTER 2020-04-27 17:38 | Emergency (ER) | payer BC ==
--- NOTE | 2020-04-27 18:26 | ER Document Report ---
ED Medical Screen (RME) - General Chief Complaint: Flank Pain Stated Complaint: LEFT FLANK PAIN,DIARRHEA Time Seen by Provider: 04/27/20 18:18 Primary Care Provider: SINA PETE MD [Primary Care Provider] - Follow up as needed TRAVEL OUTSIDE OF THE [place] IN LAST 30 DAYS: No - HPI Notes: 04/27/20 18:23 59 year old male with a history of left inguinal hernia repair couple years ago presents today with complaints of new onset left lower groin pain that radiates to his left testicle and to his back that started a couple hours ago, pain is 5 out of 5, constant. Has not tried any [id number] medications. Patient also reports he had 4 episodes of diarrhea today, denies any melena. Denies any history of Crohn's or IBS. Patient denies any trauma to his abdomen or testes. Denies any issues with bowel or bladder dysfunction. Reports pain is becoming progressively worse. Denies any chest pain, shortness of breath, nausea or vomiting. I have greeted and performed a rapid initial assessment of this patient. A comprehensive ED assessment and evaluation of the patient, analysis of test results and completion of the medical decision making process will be conducted by additional ED providers. PHYSICAL EXAMINATION: GENERAL: Well-appearing, well-nourished and in no acute distress. CV: s1, s2 regular LUNGS: No respiratory distress abd: L inguinal pain, no related or incarcerated hernia. Musculoskeletal: Normal range of motion NEUROLOGICAL: Normal speech, normal gait. SKIN: Warm, Dry, normal turgor, no rashes or lesions noted. Unable to do testicular exam in triage room due to lack of exam table. Patient will receive an ultrasound, blood work and be evaluated in the main side ED - Related Data Allergies/Adverse Reactions: No Known Allergies Allergy (Verified 04/27/20 18:15) Past Medical History - Past Medical History Cardiac Medical History: Reports: Hx Hypercholesterolemia, Hx Hypertension Denies: Hx Coronary Artery Disease, Hx Heart Attack Pulmonary Medical History: Denies: Hx Asthma, Hx Bronchitis, Hx COPD, Hx Pneumonia Neurological Medical History: Denies: Hx Cerebrovascular Accident, Hx Seizures Endocrine Medical History: Reports: Hx Diabetes Mellitus Type 1, Hx Diabetes Mellitus Type 2 Renal/ Medical History: Reports: Hx Hydrocele, Hx Kidney Stones. Denies: Hx Peritoneal Dialysis Musculoskeltal Medical History: Denies Hx Arthritis Past Surgical History: Reports: Hx Abdominal Surgery - hernia repair, Hx Inguinal Hernia, Hx Kidney (Renal Surgery) - Lithotripsy for kidney stones, Other - Lithotripsy for kidney stones - Immunizations Immunizations up to date: Yes Hx Diphtheria, Pertussis, Tetanus Vaccination: Yes Physical Exam - Vital signs Vitals: Temp Pulse Resp BP Pulse Ox 98.3 F 73 16 155/76 H 100 04/27/20 17:53 04/27/20 17:53 04/27/20 17:53 04/27/20 17:53 04/27/20 17:53 Course - Vital Signs Vital signs: Temp Pulse Resp BP Pulse Ox 98.3 F 73 16 155/76 H 100 04/27/20 17:53 04/27/20 17:53 04/27/20 17:53 04/27/20 17:53 04/27/20 17:53 Doctor's Discharge - Discharge Referrals: SINA PETE MD [Primary Care Provider] - Follow up as needed
--- NOTE | 2020-04-27 19:20 | RADIOLOGY REPORT (SQ) ---
EXAM DESCRIPTION: L SPINE WHOLE IMAGES COMPLETED DATE/TIME: 04/27/2020 6:55 pm REASON FOR STUDY: LBP x 1 day, related to L testicular pain COMPARISON: 03/09/2012 NUMBER OF VIEWS: Five views including obliques. TECHNIQUE: AP, lateral, oblique, and sacral radiographic images acquired of the lumbar spine. LIMITATIONS: None. FINDINGS: MINERALIZATION: Normal. SEGMENTATION: Normal. No transitional anatomy. ALIGNMENT: Normal. VERTEBRAE: Maintained height. No fracture or worrisome bone lesion. DISCS: Multilevel disc space narrowing more pronounced at L5-S1 with adjacent endplate sclerosis. M ildly prominent anterior osteophytes lower lumbar spine. Degenerative changes visualized lower thora cic spine. POSTERIOR ELEMENTS: Facet arthrosis lower lumbar spine. Pedicles are intact. No pars defect or post erior arch defects. HARDWARE: None in the spine. PARASPINAL SOFT TISSUES: Normal. PELVIS: Intact as visualized. No fractures or worrisome bone lesions. SI joints intact. OTHER: No other significant finding. IMPRESSION: 1. Degenerative changes with marked disc disease L5-S1. 2. No acute osseous findings. TECHNICAL DOCUMENTATION: JOB ID: [id number] [employer]- All Rights Reserved Reading location - IP/workstation name: [email or web address]
[2020-04-27 20:06] LABS: ABSOLUTE EOSINOPHILS # (AUTO) 0.3 10^3/uL (0.0-0.6); ABSOLUTE LYMPHOCYTES (AUTO) 2.1 10^3/uL (0.5-4.7); ABSOLUTE MONOCYTES (AUTO) 0.5 10^3/uL (0.1-1.4); ABSOLUTE NEUT (AUTO) 4.2 10^3/uL (1.7-8.2); BASOPHILS % (AUTO) 0.6 % (0-2); EOSINOPHILS % (AUTO) 4.2 % (0-6); HEMATOCRIT 43.9 % (37.9-51.0); HEMOGLOBIN 14.4 g/dL (13.5-17.0); LYMPHOCYTES % (AUTO) 29.1 % (13-45); MEAN CORPUSCULAR HEMOGLOBIN 27.5 pg (27.0-33.4); MEAN CORPUSCULAR HGB CONC 32.8 g/dL (32.0-36.0); MEAN CORPUSCULAR VOLUME 84 fl (80-97); MONOCYTES % (AUTO) 6.9 % (3-13); PLATELET COUNT 238 10^3/uL (150-450); RED BLOOD COUNT 5.24 10^6/uL (4.35-5.55); RED CELL DISTRIBUTION WIDTH 14.3 % (11.5-14.0); SEGMENTED NEUTROPHILS % (AUTO) 59.2 % (42-78); TOTAL CELLS COUNTED % (AUTO) 100 %; WHITE BLOOD COUNT 7.1 10^3/uL (4.0-10.5)
[2020-04-27 20:22] LABS: APPEARANCE,URINE CLEAR; BILIRUBIN,URINE NEGATIVE (NEGATIVE); COLOR,URINE YELLOW; GLUCOSE, URINE NEGATIVE (NEGATIVE); KETONES,URINE NEGATIVE (NEGATIVE); LEUKOCYTE ESTERASE,URINE NEGATIVE (NEGATIVE); NITRITE,URINE NEGATIVE (NEGATIVE); PROTEIN,URINE NEGATIVE (NEGATIVE); URINE SPECIFIC GRAVITY 1.021; UROBILINOGEN,URINE NEGATIVE mg/dL (<2.0)
[2020-04-27 20:33] LABS: ALBUMIN 3.8 g/dL (3.5-5.0); ALKALINE PHOSPHATASE 70 U/L (38-126); ANION GAP 8 (5-19); ASPARTATE AMINO TRANSFERASE 22 U/L (17-59); BILIRUBIN,TOTAL 0.7 mg/dL (0.2-1.3); BLOOD UREA NITROGEN 13 mg/dL (7-20); CALCIUM 9.5 mg/dL (8.4-10.2); CARBON DIOXIDE 26 mmol/L (22-30); CHLORIDE 105 mmol/L (98-107); GLUCOSE 115 mg/dL (75-110); POTASSIUM 4.3 mmol/L (3.6-5.0); TOTAL PROTEIN 6.6 g/dL (6.3-8.2)
--- NOTE | 2020-04-27 20:37 | RADIOLOGY REPORT (SQ) ---
EXAM DESCRIPTION: US SCROTUM COMPLETED DATE/TME: 04/27/2020 20:20 CLINICAL HISTORY: 59 years, Male, L testicular and L inguinal pain, hx of hernia Findings: Right testis measures 4.0 x 3.0 x 2.5 cm. Left testis measures 3.3 x 3.3 x 2.0 cm. Vascular flow preserved and symmetric within both testes on color and spectral Doppler imaging. The right epididymis measures 1.4 x 1.2 x 1.0 cm. Left epididymis measures 1.2 x 1.2 x 0.7 cm. Testes are within normal limits for echogenicity. Vascular flow preserved within both testes on color and spectral Doppler imaging. Small right-sided hydrocele. Small left hydrocele and mild varicocele. Mild left lymphadenopathy measuring up to 1.9 x 1.4 x 0.9 cm. IMPRESSION: No torsion. Mild left-sided varicocele. Mild left groin lymphadenopathy.
--- NOTE | 2020-04-28 01:09 | ER Document Report ---
ED GI/ - General Chief Complaint: Groin Pain Stated Complaint: LEFT FLANK PAIN,DIARRHEA Time Seen by Provider: 04/27/20 18:18 Primary Care Provider: SINA PETE MD [Primary Care Provider] - Follow up as needed Mode of Arrival: Ambulatory Information source: Patient Notes: 04/27/20 18:22 - Nursing Note by [facility] Num: [id number] : 1960 Patient Age: 59 c/o left groin/lower abd pain. pt states complaint started today and has continued with radiating pain to testicle. pt denies urinary complaint, +diarrhea today. 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 IN LAST 30 DAYS: No - HPI Notes: 04/27/20 18:23 59 year old male with a history of left inguinal hernia repair couple years ago presents today with complaints of new onset left lower groin pain that radiates to his left testicle and to his back that started a couple hours ago, pain is 5 out of 5, constant. Has not tried any oiyr-kny-bhexiyb medications. Patient also reports he had 4 episodes of diarrhea today, denies any melena. Denies any history of Crohn's or IBS. Patient denies any trauma to his abdomen or testes. Denies any issues with bowel or bladder dysfunction. Reports pain is becoming progressively worse. Denies any chest pain, shortness of breath, nausea or vomiting. I have greeted and performed a rapid initial assessment of this patient. A comprehensive ED assessment and evaluation of the patient, analysis of test results and completion of the medical decision making process will be conducted by additional ED providers. PHYSICAL EXAMINATION: GENERAL: Well-appearing, well-nourished and in no acute distress. CV: s1, s2 regular LUNGS: No respiratory distress abd: L inguinal pain, no related or incarcerated hernia. Musculoskeletal: Normal range of motion NEUROLOGICAL: Normal speech, normal gait. SKIN: Warm, Dry, normal turgor, no rashes or lesions noted. Unable to do testicular exam in triage room due to lack of exam table. Patient will receive an ultrasound, blood work and be evaluated in the main side ED - Related Data MY NOTES 59-year-old black male arrives with chief complaint of left inguinal pain. He r eports here at [place] he had a hernia repair in 2018. 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 He reports he has some pain that radiates to his left testicle. Ultrasound reveals varicocele. Urinalysis within normal limits CBC CMP within normal limits. TRAVEL OUTSIDE OF THE [place]. IN LAST 30 DAYS: No - Related Data Allergies/Adverse Reactions: No Known Allergies Allergy (Verified 04/27/20 18:15) Past Medical History - General Information source: Patient - Social History Smoking Status: Never Smoker Cigarette use (# per day): No Chew tobacco use (# tins/day): No Smoking Education Provided: No Frequency of alcohol use: None Drug Abuse: None Lives with: Family Family History: Reviewed & Not Pertinent, Arthritis, DM, Hyperlipidemia, Hypertension Patient has suicidal ideation: No Patient has homicidal ideation: No - Past Medical History Cardiac Medical History: Reports: Hx Hypercholesterolemia, Hx Hypertension Denies: Hx Coronary Artery Disease, Hx Heart Attack Pulmonary Medical History: Denies: Hx Asthma, Hx Bronchitis, Hx COPD, Hx Pneumonia Neurological Medical History: Denies: Hx Cerebrovascular Accident, Hx Seizures Endocrine Medical History: Reports: Hx Diabetes Mellitus Type 1, Hx Diabetes Mellitus Type 2 Renal/ Medical History: Reports: Hx Hydrocele, Hx Kidney Stones. Denies: Hx Peritoneal Dialysis Musculoskeletal Medical History: Denies Hx Arthritis Past Surgical History: Reports: Hx Abdominal Surgery - hernia repair, Hx Inguinal Hernia, Hx Kidney (Renal Surgery) - Lithotripsy for kidney stones, Other - Lithotripsy for kidney stones - Immunizations Immunizations up to date: Yes Hx Diphtheria, Pertussis, Tetanus Vaccination: Yes Review of Systems - Review of Systems Constitutional: No symptoms reported EENT: No symptoms reported Cardiovascular: No symptoms reported Respiratory: No symptoms reported Gastrointestinal: See HPI, Abdominal pain Genitourinary: See HPI, Other - Testicular pain Male Genitourinary: No symptoms reported Musculoskeletal: No symptoms reported Skin: No symptoms reported Hematologic/Lymphatic: No symptoms reported Neurological/Psychological: No symptoms reported Physical Exam - Vital signs Vitals: Temp Pulse Resp BP Pulse Ox 98.3 F 73 16 155/76 H 100 04/27/20 17:53 04/27/20 17:53 04/27/20 17:53 04/27/20 17:53 04/27/20 17:53 Interpretation: Hypertensive - General General appearance: Appears well, Alert - HEENT Head: Normocephalic, Atraumatic Eyes: Normal Pupils: PERRL - Respiratory Respiratory status: No respiratory distress Chest status: Nontender Breath sounds: Normal Chest palpation: Normal - Cardiovascular Rhythm: Regular Heart sounds: Normal auscultation Murmur: No - Abdominal Inspection: Normal Distension: No distension Bowel sounds: Normal Tenderness: Tender - Left inguinal pain on palpation. Organomegaly: No organomegaly - Rectal Prostate: Other - deferred - Genitourinary Scrotum: Other - deferred - Back Back: Normal, Nontender - Extremities General upper extremity: Normal inspection, Nontender, Normal color, Normal ROM, Normal temperature General lower extremity: Normal inspection, Nontender, Normal color, Normal ROM, Normal temperature, Normal weight bearing. No: Lisandro's sign - Neurological Neuro grossly intact: Yes Cognition: Normal Orientation: AAOx4 [place] Coma Scale Eye Opening: Spontaneous [place] Coma Scale Verbal: Oriented [place] Coma Scale Motor: Obeys Commands [place] Coma Scale Total: 15 Speech: Normal Motor strength normal: LUE, RUE, LLE, RLE Sensory: Normal - Psychological Associated symptoms: Normal affect, Normal mood - Skin Skin Temperature: Warm Skin Moisture: Dry Skin Color: Normal Course - Vital Signs Vital signs: Temp Pulse Resp BP Pulse Ox 98.2 F 61 16 150/78 H 100 04/27/20 21:06 04/27/20 21:06 04/27/20 17:53 04/27/20 21:06 04/27/20 21:06 - Laboratory Result Diagrams: 04/27/20 19:42 04/27/20 19:42 Laboratory results interpreted by me: 04/27/20 04/27/20 04/27/20 19:42 19:42 19:42 RDW 14.3 H Glucose 115 H Urine Blood SMALL H Discharge - Discharge Clinical Impression: Varicocele Abdominal pain Qualifiers: Abdominal location: left lower quadrant Qualified Code(s): R10.32 - Left lower quadrant pain Condition: Stable Disposition: HOME, SELF-CARE Additional Instructions: Follow-up with personal doctor return to ER as needed take medicines as directed encourage fluids avoid lifting until seen by PMD Referrals: SINA PETE MD [Primary Care Provider] - Follow up as needed
--- NOTE | 2020-04-28 02:17 | RADIOLOGY REPORT (SQ) ---
EXAM DESCRIPTION: Site: CT ABD/PELVIS NO ORAL OR IV RP: CT ABDOMEN PELVIS WITHOUT IV CONTRAST CLINICAL HISTORY: 59 years Male; left groin/lower abd pain; TECHNIQUE: CT of the abdomen and pelvis without contrast. All CT scans at this facility use dose modulation, iterative reconstruction, and/or weight based dosing when appropriate to reduce radiation dose to as low as reasonably achievable. COMPARISON: CT 10/12/2017 FINDINGS: Abdomen: Stomach: Nondistended. Small hiatal hernia. Liver:No focal lesions. No intrahepatic ductal distention. Gallbladder:Nondistended Pancreas:Within normal limits Spleen:Within normal limits Right kidney: 2 calculi, 3 mm diameter, slightly larger since prior study. No hydronephrosis. No ureteral calculi. Left kidney:No hydronephrosis. No renal or ureteral calculi. Adrenal glands:Within normal limits Vascular structures:No aortic aneurysm. Pelvis: Small bowel: Nondistended. Appendix:Within normal limits Colon:No distention or acute pericolonic edema. Adjacent to the sigmoid mesentery there is a well-circumscribed 3.2 cm fat density structure with peripheral soft tissue density, not present on prior exam. No free intraperitoneal fluid or air. Bones: Irregular calcifications extend superiorly from the symphysis pubis, consistent with previous surgical repair of the low anterior abdominal wall no acute edema. Bladder: Unremarkable. No pelvic mass or adenopathy. Note that evaluation of the bowel and solid organs is somewhat limited due to lack of intravenous and oral contrast. IMPRESSION: 1. No acute findings 2. Chronic changes in the low anterior abdominal wall, likely dystrophic calcifications after previous surgery or trauma 3. Left lower quadrant lipoma, likely along the sigmoid mesentery. This is new since 2018, but likely benign. 4. Right renal calculi, slightly larger since 2018. No hydronephrosis or ureteral calculi.
[2020-04-28 03:07] VITALS: BP 136/87
== END 2020-04-28 03:06 | disposition home or self-care (01) ==
LOC: ER 17:38
DX: N20.0 Calculus of kidney (principal); D17.5 Benign lipomatous neoplasm of intra-abdominal organs; I86.1 Scrotal varices; M47.817 Spondylosis without myelopathy or radiculopathy, lumbosacral region; R59.0 Localized enlarged lymph nodes; R10.32 Left lower quadrant pain; R19.7 Diarrhea, unspecified; I10 Essential (primary) hypertension; E11.9 Type 2 diabetes mellitus without complications; Z98.890 Other specified postprocedural states
CPT/HCPCS: 36415; 72110; 74176; 76870; 80053; 81001; 83690; 85025; 93976; 99285

== ENCOUNTER 2020-06-20 13:39 | Emergency (ER) | payer BC ==
--- NOTE | 2020-06-20 15:48 | ER Document Report ---
ED Medical Screen (RME) - General Chief Complaint: Flank Pain Stated Complaint: FLANK PAIN Time Seen by Provider: 06/20/20 15:38 Primary Care Provider: SINA PETE MD [Primary Care Provider] - Follow up as needed TRAVEL OUTSIDE OF THE U.S. IN LAST 30 DAYS: No - HPI Notes: Patient is a 59-year-old male with history of kidney stones, DM, and hypertension who presents with bilateral flank pain that worsened today. Patient states his flank pain is worse on the left side. He reports nausea, vomiting, diarrhea but denies fever, dysuria, shortness of breath, and chest pain. - Related Data Allergies/Adverse Reactions: No Known Allergies Allergy (Verified 04/27/20 18:15) Past Medical History - Past Medical History Cardiac Medical History: Reports: Hx Hypercholesterolemia, Hx Hypertension Denies: Hx Coronary Artery Disease, Hx Heart Attack Pulmonary Medical History: Denies: Hx Asthma, Hx Bronchitis, Hx COPD, Hx Pneumonia Neurological Medical History: Denies: Hx Cerebrovascular Accident, Hx Seizures Endocrine Medical History: Reports: Hx Diabetes Mellitus Type 1, Hx Diabetes Mellitus Type 2 Renal/ Medical History: Reports: Hx Hydrocele, Hx Kidney Stones. Denies: Hx Peritoneal Dialysis Musculoskeltal Medical History: Denies Hx Arthritis Past Surgical History: Reports: Hx Abdominal Surgery - hernia repair, Hx Inguinal Hernia, Hx Kidney (Renal Surgery) - Lithotripsy for kidney stones, Other - Lithotripsy for kidney stones - Immunizations Immunizations up to date: Yes Hx Diphtheria, Pertussis, Tetanus Vaccination: Yes Physical Exam - Vital signs Vitals: Temp Pulse Resp BP Pulse Ox 98.4 F 85 16 160/75 H 97 06/20/20 14:00 06/20/20 14:00 06/20/20 14:00 06/20/20 14:06/20/20 14:00 - Abdominal Bowel sounds: Normal Tenderness: Nontender - Back Back: No: CVA tenderness Course - Re-evaluation Re-evalutation: I have greeted and performed a rapid initial assessment of this patient. A comprehensive ED assessment and evaluation of the patient, analysis of test resu lts and completion of medical decision making process will be conducted by an additional ED providers. - Vital Signs Vital signs: Temp Pulse Resp BP Pulse Ox 98.4 F 85 16 160/75 H 97 06/20/20 14:00 06/20/20 14:00 06/20/20 14:00 06/20/20 14:00 06/20/20 14:00 Doctor's Discharge - Discharge Referrals: SINA PETE MD [Primary Care Provider] - Follow up as needed
[2020-06-20 16:17] LABS: ABSOLUTE EOSINOPHILS # (AUTO) 0.2 10^3/uL (0.0-0.6); MEAN CORPUSCULAR VOLUME 84 fl (80-97); TOTAL CELLS COUNTED % (AUTO) 100 %
[2020-06-20 16:30] LABS: ALBUMIN 3.7 g/dL (3.5-5.0); ALKALINE PHOSPHATASE 65 U/L (38-126); ASPARTATE AMINO TRANSFERASE 23 U/L (17-59); BILIRUBIN,DIRECT 0.1 mg/dL (0.0-0.4); BLOOD UREA NITROGEN 16 mg/dL (7-20); CALCIUM 9.3 mg/dL (8.4-10.2); CARBON DIOXIDE 28 mmol/L (22-30); CHLORIDE 107 mmol/L (98-107); GLUCOSE 117 mg/dL (75-110); POTASSIUM 4.4 mmol/L (3.6-5.0); TOTAL PROTEIN 6.7 g/dL (6.3-8.2)
[2020-06-20 16:32] LABS: ANION GAP 3 (5-19)
[2020-06-20 16:36] LABS: ABSOLUTE BASOPHILS # (AUTO) 0.1 10^3/uL (0.0-0.2); ABSOLUTE MONOCYTES (AUTO) 0.4 10^3/uL (0.1-1.4); ABSOLUTE NEUT (AUTO) 3.5 10^3/uL (1.7-8.2); BASOPHILS % (AUTO) 1.2 % (0-2); EOSINOPHILS % (AUTO) 2.9 % (0-6); HEMATOCRIT 47.5 % (37.9-51.0); HEMOGLOBIN 15.2 g/dL (13.5-17.0); LYMPHOCYTES % (AUTO) 31.9 % (13-45); MEAN CORPUSCULAR HEMOGLOBIN 26.9 pg (27.0-33.4); MONOCYTES % (AUTO) 7.2 % (3-13); PLATELET COUNT 234 10^3/uL (150-450); RED BLOOD COUNT 5.64 10^6/uL (4.35-5.55); RED CELL DISTRIBUTION WIDTH 15.4 % (11.5-14.0); SEGMENTED NEUTROPHILS % (AUTO) 56.8 % (42-78); WHITE BLOOD COUNT 6.1 10^3/uL (4.0-10.5)
[2020-06-20] MEDS ORDERED: NORMAL SALINE 1000 ML 1,000 ML IV ONE (16:46)
[2020-06-20] MEDS ORDERED: KETOROLAC TROMETHAMINE INJ/PF 30 MG/1 ML SDV IV ONE (16:46)
--- NOTE | 2020-06-20 16:55 | ER Document Report ---
ED GI/ - General Chief Complaint: Flank Pain Stated Complaint: FLANK PAIN Time Seen by Provider: 06/20/20 15:38 Primary Care Provider: SINA PETE MD [Primary Care Provider] - Follow up as needed Mode of Arrival: Ambulatory Information source: Patient Notes: 59-year-old man presenting to the emergency department with a complaint of left flank pain which has been intermittent over the past couple days. He states the pain is worse today he has had a history of kidney stones in the past and he is concerned he may have another kidney stone. Denies fever, nausea vomiting or significant abdominal pain. He rates the flank pain 7/10 TRAVEL OUTSIDE OF THE [place] IN LAST 30 DAYS: No - Related Data Allergies/Adverse Reactions: No Known Allergies Allergy (Verified 04/27/20 18:15) Past Medical History - Social History Smoking Status: Unknown if Ever Smoked Family History: Reviewed & Not Pertinent, Arthritis, DM, Hyperlipidemia, Hypertension - Past Medical History Cardiac Medical History: Reports: Hx Hypercholesterolemia, Hx Hypertension Denies: Hx Coronary Artery Disease, Hx Heart Attack Pulmonary Medical History: Denies: Hx Asthma, Hx Bronchitis, Hx COPD, Hx Pneumonia Neurological Medical History: Denies: Hx Cerebrovascular Accident, Hx Seizures Endocrine Medical History: Reports: Hx Diabetes Mellitus Type 1, Hx Diabetes Mellitus Type 2 Renal/ Medical History: Reports: Hx Hydrocele, Hx Kidney Stones. Denies: Hx Peritoneal Dialysis Musculoskeletal Medical History: Denies Hx Arthritis Past Surgical History: Reports: Hx Abdominal Surgery - hernia repair, Hx Inguinal Hernia, Hx Kidney (Renal Surgery) - Lithotripsy for kidney stones, Other - Lithotripsy for kidney stones - Immunizations Immunizations up to date: Yes Hx Diphtheria, Pertussis, Tetanus Vaccination: Yes Review of Systems - Review of Systems Notes: Constitutional: Negative for fever. HENT: Negative for sore throat. Eyes: Negative for visual changes. Cardiovascular: Negative for chest pain. Respiratory: Negative for shortness of breath. Gastrointestinal: Negative for abdominal pain, vomiting or diarrhea. Genitourinary: See HPI Musculoskeletal: Negative for back pain. Skin: Negative for rash. Neurological: Negative for headaches, weakness or numbness. 10 point ROS negative except as marked above and in HPI. Physical Exam - Vital signs Vitals: Temp Pulse Resp BP Pulse Ox 98.4 F 85 16 160/75 H 97 06/20/20 14:00 06/20/20 14:00 06/20/20 14:00 06/20/20 14:00 06/20/20 14:00 - Notes Notes: PHYSICAL EXAMINATION: Physical Exam: General: Well-nourished well-developed 59-year-old male in mild distress secondary to flank pain. HEENT: NC/AT, pupils equal round and reactive to light, MM moist,nares clear, oropharynx clear, airway patent Neck: supple, no adenopathy, no masses. Good range of motion Lungs: clear, no wheezing, no rales no rhonchi CVS: Regular rate and rhythm no murmur gallop or rub Abdomen: Soft, active, nontender, no masses, no hepatosplenomegaly Back: Left CVA tenderness Ext: No edema, clubbing or cyanosis. Neuro: Alert and responsive, moving all 4 extremities on command, cranial nerves intact, no focal findings Skin: Intact no open lesions, no rash PSYCH: Normal mood, normal affect. Course - Re-evaluation Re-evalutation: 06/20/20 17:40 59-year-old male presenting with a history of left flank pain intermittently for the past few days worse today. Patient states that he has had a history of kidney stones. IV fluids Toradol 15 mg IV given, patient has significant improvement of symptoms. CT of the abdomen pelvis with no contrast results of still pending. Urine does show a moderate amount of blood no WBCs or bacteria. 06/20/20 18:29 CT scan reveals nonobstructive right nephrolithiasis. Discussed this finding with the patient explained that there is for anything could be due to his stones however given that it is not obstructive we can symptoms, increase his fluid intake and follow-up with the primary care doctor as needed. - Vital Signs Vital signs: Temp Pulse Resp BP Pulse Ox 98.3 F 63 16 155/84 H 99 06/20/20 18:54 06/20/20 18:54 06/20/20 18:54 06/20/20 18:54 06/20/20 18:54 - Laboratory Results Result Diagrams: 06/20/20 15:55 06/20/20 15:55 Laboratory Results Interpreted: 06/20/20 06/20/20 06/20/20 15:55 15:55 16:36 RBC 5.64 H MCH 26.9 L RDW 15.4 H Anion Gap 3 L Glucose 117 H Urine Protein 30 H Urine Blood LARGE H 06/20/20 16:56 I have reviewed laboratory data and used this information for the treatment decisions regarding the patient. Critical Laboratory Results Reviewed: Yes Attending or Supervising Physician who Reviewed Labs: CHERRY MACEDO - Hematuria - Radiology Results Radiology Results Interpreted: 06/20/20 18:29 Abdomen/Pelvis CT 06/20/20 15:44 IMPRESSION: Persistent nonobstructive nephrolithiasis on the right. No acute findings. Critical Radiology Results Reviewed: No Critical Results Discharge - Discharge Clinical Impression: Right flank pain, Right nephrolithiasis Hematuria Qualifiers: Hematuria type: other microscopic Qualified Code(s): R31.29 - Other microscopic hematuria Condition: Good Disposition: HOME, SELF-CARE Instructions: Antinausea Medication ([facility]), Kidney Stone ([facility]), Toradol Injection ([facility]) Additional Instructions: You were seen in the emergency department today with right flank pain your scan shows a right-sided kidney stone which is not blocking the urine flow. Please take the medications as directed, increase your fluid intake, follow-up with your primary care doctor as needed. If your symptoms are worsening or if you have other concerns you may return to the emergency department as needed HOME CARE INSTRUCTIONS & INFORMATION: Thank you for choosing us for your medical needs. We hope you're satisfied with the care you received. After you leave, you must properly care for your problem and, at the same time, observe its progress. Any condition can change. Some illnesses can change rapidly over hours or days. If your condition worsens, return to the Emergency Department or see your physician promptly. ABOUT YOUR X-RAYS AND EKG'S: If you had an EKG or X-rays taken, they have been read by the Emergency Physician. The X-rays and EKG's will also be read by a Radiologist or Fiberg[employer] Boat Builder within 24 hours. If discrepancies are noted, you will be notified by telephone. Please be certain the ED has a correct telephone number & address where you can be reached. Also, realize that some fractures or abnormalities do not show up on initial X-rays. If your symptoms continue, see your physician. ABOUT YOUR LABORATORY TEST: If you had laboratory tests, the results have been reviewed by the Emergency Physician. Some test results (for example cultures) may not be available for several days. You will be contacted if any test result shows you need additional treatment. Please be certain the ED has a correct telephone number and address where you can be reached. ABOUT YOUR MEDICATIONS: You will receive instructions on how to take your medicine on the prescription label you receive. Additional information may be provided by the Pharmacy. If you have questions afterwards, call the ED for clarification or further instructions. Some prescribed medications may cause drowsiness. Do not perform tasks such as driving a car or operating machinery without consulting your Pharmacist. If you feel you need a refill of pain medication, your condition will need re-evaluation. Please do not call for a refill of any medication. ABOUT YOUR SIGNATURE: Signature of this document acknowledges to followin. Understanding that you received emergency treatment and that you may be released before al medical problems are known or treated. Please be certain the ED has a correct phone number & address where you can be reached. 2. Acknowledgement that you will arrange for follow-up care as recommended. 3. Authorization for the Emergency Physician to provide information to your follow-up Physician in order to maximize your care. AT ANY TIME, IF YOUR SYMPTOMS CHANGE SIGNIFICANTLY OR WORSEN OR YOU DEVELOP NEW SYMPTOMS, RETURN TO THE EMERGENCY DEPARTMENT IMMEDIATELY FOR RE-EVALUATION. OUR GOAL IS TO PROVIDE EXCELLENT MEDICAL CARE! WE HOPE THAT WE HAVE MET YOUR EXPECTATIONS DURING YOUR EMERGENCY DEPARTMENT VISIT AND THAT YOU FEEL YOU HAVE RECEIVED EXCELLENT CARE! Prescriptions: Naproxen [Naprosyn] 500 mg PO BID #20 tablet Hydrocodone/Acetaminophen [[place] 5-325 mg Tablet] 1 tab PO Q6 PRN #10 tablet PRN Reason: Ondansetron [Zofran Odt 4 mg Tablet] 1 - 2 tab PO Q4H PRN #15 tab.rapdis PRN Reason: For Nausea/Vomiting Forms: Return to Work Referrals: SINA PETE MD [Primary Care Provider] - Follow up as needed
[2020-06-20 17:17] LABS: APPEARANCE,URINE SLIGHTLY-CLOUDY; BILIRUBIN,URINE NEGATIVE (NEGATIVE); COLOR,URINE YELLOW; GLUCOSE, URINE NEGATIVE (NEGATIVE); KETONES,URINE NEGATIVE (NEGATIVE); LEUKOCYTE ESTERASE,URINE NEGATIVE (NEGATIVE); NITRITE,URINE NEGATIVE (NEGATIVE); PROTEIN,URINE 30 mg/dL (NEGATIVE); URINE SPECIFIC GRAVITY 1.025; UROBILINOGEN,URINE NEGATIVE mg/dL (<2.0)
--- NOTE | 2020-06-20 17:53 | RADIOLOGY REPORT (SQ) ---
EXAM DESCRIPTION: CT ABD/PELVIS NO ORAL OR IV IMAGES COMPLETED DATE/TIME: 06/20/2020 4:24 pm REASON FOR STUDY: left flank pain COMPARISON: 04/28/2020 TECHNIQUE: CT scan of the abdomen and pelvis performed without intravenous or oral contrast. Images reviewed with lung, soft tissue, and bone windows. Reconstructed coronal and sagittal MPR images revi ewed. All images stored on PACS. All CT scanners at this facility use dose modulation, iterative reconstruction, and/or weight based d osing when appropriate to reduce radiation dose to as low as reasonably achievable (ALARA). [facility]: Dose Right [facility]: CareDose [facility]: Dose Right [facility]: Teradose 4D [facility]: [employer] Technologies RADIATION DOSE: CT Rad equipment meets quality standard of care and radiation dose reduction techniq ues were employed. CTDIvol: 12.5 mGy. DLP: 735 mGy-cm.mGy. LIMITATIONS: None. FINDINGS: LOWER CHEST: No significant findings. No nodules or infiltrates. NON-CONTRASTED LIVER, SPLEEN, ADRENALS: Evaluation limited by lack of IV contrast. No identified sign ificant masses. PANCREAS: No masses. No peripancreatic inflammatory changes. GALLBLADDER: No identified stones by CT criteria. No inflammatory changes to suggest cholecystitis. RIGHT KIDNEY AND URETER: No suspicious masses. Assessment limited by lack of IV contrast. Stable pe ripheral calcifications. No hydronephrosis or hydroureter. LEFT KIDNEY AND URETER: No suspicious masses. Assessment limited by lack of IV contrast. No signifi cant calcifications. No hydronephrosis or hydroureter. AORTA AND RETROPERITONEUM: No aneurysm. No retroperitoneal masses or adenopathy. BOWEL AND PERITONEAL CAVITY: No obvious masses or inflammatory changes. No free fluid. Stable intra- abdominal lipoma. APPENDIX: Normal. PELVIS, BLADDER, AND ABDOMINAL WALL:Stable dystrophic calcification. Bladder unremarkable. BONES: No significant findings. OTHER: No other significant finding. IMPRESSION: Persistent nonobstructive nephrolithiasis on the right. No acute findings. COMMENT: Quality ID # [id number]: Final reports with documentation of one or more dose reduction techniques (e.g., Automated exposure control, adjustment of the mA and/or kV according to patient size, use of iterative reconstruction technique) TECHNICAL DOCUMENTATION: JOB ID: [id number] 2010 [employer]- All Rights Reserved Reading location - IP/workstation name: [email or web address]
[2020-06-20] MEDS ORDERED: HYDROCODONE/ACETAMINOPHEN 5-325 MG (6 TAB/ER DISP) PO PRN (18:34)
[2020-06-20 18:56] VITALS: BP 155/84
== END 2020-06-20 19:04 | disposition home or self-care (01) ==
LOC: ER 13:39
DX: N20.0 Calculus of kidney (principal); R31.29 Other microscopic hematuria; R10.9 Unspecified abdominal pain; I10 Essential (primary) hypertension; E11.9 Type 2 diabetes mellitus without complications
CPT/HCPCS: 99285; 96361; 96374; 36415; 85025; 80053; 81001; 74176; J1885; J7030

== ENCOUNTER 2020-07-09 10:35 | Emergency (ER) | payer BC ==
--- NOTE | 2020-07-09 11:43 | ER Document Report ---
Entered by ZEESHAN GONZALEZ SCRIBE 07/09/20 1111 Acting as scribe for:WILLIE CRISOSTOMO MD ED General - General Stated Complaint: CHILLS, DIARRHEA, BODY ACHES Time Seen by Provider: 07/09/20 11:07 Primary Care Provider: SINA PETE MD [Primary Care Provider] - Follow up as needed Mode of Arrival: Ambulatory Information source: Patient Notes: This 59 year old male patient presents to the ED today with complaints of chills, body aches, mild nonproductive cough, and loss of taste that started x2 days ago. Patient reports recent exposure to his coworker who was symptomatic last week and tested positive for COVID yesterday. He did not received a flu shot this year. TRAVEL OUTSIDE OF THE [place] IN LAST 30 DAYS: No - Related Data Allergies/Adverse Reactions: No Known Allergies Allergy (Verified 07/09/20 11:35) Past Medical History - General Information source: Patient, [facility] Records - Social History Smoking Status: Never Smoker Cigarette use (# per day): No Chew tobacco use (# tins/day): No Smoking Education Provided: No Frequency of alcohol use: None Drug Abuse: None Family History: Reviewed & Not Pertinent, Arthritis, DM, Hyperlipidemia, Hypertension - Past Medical History Cardiac Medical History: Reports: Hx Hypercholesterolemia, Hx Hypertension Endocrine Medical History: Reports: Hx Diabetes Mellitus Type 2 Renal/ Medical History: Reports: Hx Hydrocele, Hx Kidney Stones Past Surgical History: Reports: Hx Inguinal Hernia, Hx Kidney (Renal Surgery) - Lithotripsy for kidney stones - Immunizations Immunizations up to date: Yes Hx Diphtheria, Pertussis, Tetanus Vaccination: Yes Review of Systems - Review of Systems Constitutional: See HPI, Chills. denies: Fever EENT: See HPI, Other - Loss of tase Cardiovascular: No symptoms reported Respiratory: See HPI, Cough Gastrointestinal: No symptoms reported Genitourinary: No symptoms reported Male Genitourinary: No symptoms reported Musculoskeletal: See HPI, Muscle pain Skin: No symptoms reported Hematologic/Lymphatic: No symptoms reported Neurological/Psychological: No symptoms reported -: Yes All other systems reviewed and negative Physical Exam - Vital signs Vitals: Temp Pulse Resp BP Pulse Ox 99.4 F 80 20 148/79 H 97 07/09/20 10:52 07/09/20 10:52 07/09/20 10:52 07/09/20 10:52 07/09/20 10:52 - General General appearance: Alert In distress: None - HEENT Head: Normocephalic, Atraumatic Eyes: Normal Extraocular movements intact: Yes Pupils: PERRL Neck: Normal, Supple - Respiratory Respiratory status: No respiratory distress Chest status: Nontender Breath sounds: Other - Rhonchi and faint wheezing when he coughs Chest palpation: Normal - Cardiovascular Rhythm: Regular Heart sounds: Normal auscultation Murmur: No - Abdominal Inspection: Normal Distension: No distension Bowel sounds: Normal Tenderness: Nontender - Abdomen soft Organomegaly: No organomegaly - Back Back: Normal, Nontender - Extremities General upper extremity: Normal inspection General lower extremity: Normal inspection. No: Edema - Neurological Neuro grossly intact: Yes Orientation: AAOx4 Section Coma Scale Eye Opening: Spontaneous Popeye Coma Scale Verbal: Oriented Pope[place] Coma Scale Motor: Obeys Commands Popeye Coma Scale Total: 15 - Psychological Associated symptoms: Normal affect, Normal mood - Skin Skin Temperature: Warm Skin Moisture: Dry Skin Color: Normal Course - Re-evaluation Re-evalutation: 07/09/20 13:37 The patient was evaluated during the global COVID-19 pandemic and that diagnosis was suspected/considered upon their initial presentation. Their evaluation, treatment and testing was consistent with current guidelines for patients who present with complaints or symptoms that may be related to COVID-19. - Vital Signs Vital signs: Temp Pulse Resp BP Pulse Ox 98.9 F 78 16 138/72 H 98 07/09/20 14:07 07/09/20 14:07 07/09/20 14:07 07/09/20 14:07 07/09/20 14:07 - Laboratory Results Result Diagrams: 07/09/20 12:07 07/09/20 12:07 Laboratory Results Interpreted: 07/09/20 07/09/20 07/09/20 11:35 12:07 12:07 RDW 14.8 H Sodium 135.2 L Total Bilirubin 1.9 H SARS-CoV-2 (PCR) DETECTED H Critical Laboratory Results Reviewed: Yes Attending or Supervising Physician who Reviewed Labs: WILLIE CRISOSTOMO - Covid positive - Radiology Results Critical Radiology Results Reviewed: No Critical Results Discharge - Discharge Clinical Impression: 2019 novel coronavirus disease (COVID-19) Condition: Stable Disposition: HOME, SELF-CARE Instructions: COVID-19 Guidance for Persons Under Investigation Additional Instructions: The symptoms you are experiencing are most likely due to the COVID-19 infection. There is good evidence to suggest the following regimen may be helpful in limiting the severity of your illness: Vitamin C 500 mg twice daily, quercetin 250 mg twice daily. Vitamin D 2000 international units daily. B complex vitamins daily. Zinc 100 mg daily. 1 baby aspirin daily. Melatonin 10 mg at bedtime. Pepcid 40 mg twice daily. Take Tylenol and ibuprofen for fever, aches and pains. Drink plenty of fluids and rest. Self isolate at home until you have been symptom-free, fever free without taking anything that would reduce your fever for at least 3 days. Follow-up with a local medical doctor if not improving. Return to the emergency room if you begin having shortness of breath at rest. RETURN TO THE EMERGENCY ROOM IF ANY NEW OR WORSENING SYMPTOMS. Forms: Return to Work Referrals: SINA PETE MD [Primary Care Provider] - Follow up as needed I personally performed the services described in the documentation, reviewed and edited the documentation which was dictated to the scribe in my presence, and it accurately records my words and actions.
[2020-07-09 12:34] LABS: ABSOLUTE LYMPHOCYTES (AUTO) 1.4 10^3/uL (0.5-4.7); ABSOLUTE MONOCYTES (AUTO) 0.4 10^3/uL (0.1-1.4); ABSOLUTE NEUT (AUTO) 2.8 10^3/uL (1.7-8.2); BASOPHILS % (AUTO) 0.2 % (0-2); EOSINOPHILS % (AUTO) 0.2 % (0-6); HEMATOCRIT 44.7 % (37.9-51.0); HEMOGLOBIN 14.6 g/dL (13.5-17.0); MEAN CORPUSCULAR HEMOGLOBIN 27.3 pg (27.0-33.4); MEAN CORPUSCULAR HGB CONC 32.7 g/dL (32.0-36.0); MEAN CORPUSCULAR VOLUME 83 fl (80-97); MONOCYTES % (AUTO) 9.4 % (3-13); PLATELET COUNT 183 10^3/uL (150-450); RED BLOOD COUNT 5.36 10^6/uL (4.35-5.55); RED CELL DISTRIBUTION WIDTH 14.8 % (11.5-14.0); SEGMENTED NEUTROPHILS % (AUTO) 60.2 % (42-78); TOTAL CELLS COUNTED % (AUTO) 100 %; WHITE BLOOD COUNT 4.6 10^3/uL (4.0-10.5)
[2020-07-09 12:55] LABS: ALBUMIN 3.8 g/dL (3.5-5.0); ALKALINE PHOSPHATASE 82 U/L (38-126); ANION GAP 7 (5-19); ASPARTATE AMINO TRANSFERASE 29 U/L (17-59); BILIRUBIN,DIRECT 0.1 mg/dL (0.0-0.4); BILIRUBIN,TOTAL 1.9 mg/dL (0.2-1.3); BLOOD UREA NITROGEN 14 mg/dL (7-20); CALCIUM 8.7 mg/dL (8.4-10.2); CARBON DIOXIDE 27 mmol/L (22-30); CHLORIDE 101 mmol/L (98-107); GLUCOSE 106 mg/dL (75-110); POTASSIUM 4.1 mmol/L (3.6-5.0); TOTAL PROTEIN 6.7 g/dL (6.3-8.2)
[2020-07-09 14:08] VITALS: BP 138/72
== END 2020-07-09 14:08 | disposition home or self-care (01) ==
LOC: ER 10:35
DX: U07.1 COVID-19 (principal); M79.10 Myalgia, unspecified site; R68.83 Chills (without fever); R19.7 Diarrhea, unspecified; R05 Cough; E78.00 Pure hypercholesterolemia, unspecified; I10 Essential (primary) hypertension; E11.9 Type 2 diabetes mellitus without complications
CPT/HCPCS: 99283; 36415; 87040; 85025; 0202U; 80053; C9803